=== PATIENT | male | born 1955 | race African-American/Black ===

== ENCOUNTER 2017-06-19 22:11 | Emergency (ER) | payer MEDICAID ==
[2017-07-17] MEDS ORDERED: DEPAKOTE500 MG PO (09:41)
[2017-07-17] MEDS ORDERED: HYDROCODONE-APA1 TAB PO (09:41)
[2017-07-17] MEDS ORDERED: ALENDRONATE SOD70 MG PO (09:42)
[2017-07-17] MEDS ORDERED: CALCIUM 600 +1 EAC3 PO (09:42)
[2017-07-20 10:42] VITALS: BMI 32.8
== END 2017-06-19 23:47 | disposition home or self-care (01) ==
LOC: D.ER 22:11
DX: S43.402A Unspecified sprain of left shoulder joint, initial encounter (principal); W19.XXXA Unspecified fall, initial encounter; Y93.89 Activity, other specified; Y92.89 Other specified places as the place of occurrence of the external cause

== ENCOUNTER → 2017-07-01 12:26 | Outpatient (CLI) | payer MEDICAID ==
[~2017-07-01 12:26] MED LIST: ALENDRONATE SOD70 MG PO; CALCIUM 600 +1 EAC3 PO; DEPAKOTE500 MG PO; HYDROCODONE-APA1 TAB PO
[2017-07-20 10:42] VITALS: BMI 32.8
== END | disposition home or self-care (01) ==
LOC: D.RAD 12:26
DX: M75.122 Complete rotator cuff tear or rupture of left shoulder, not specified as traumatic (principal); X58.XXXA Exposure to other specified factors, initial encounter; Y93.89 Activity, other specified; Y92.89 Other specified places as the place of occurrence of the external cause

== ENCOUNTER 2017-07-20 09:15 | Day surgery (SDC) | payer MEDICAID ==
[~2017-07-20] VITALS: Ht 190.5 cm; Wt 118.8 kg
--- NOTE | ~2017-07-20 | OP ---
PATIENT NAME: OMAR PETERSON MEDICAL RECORD: [id number] :57 LOCATION:[facility] ADMISSION DATE: SURGEON: ROSA FARIAS MD DATE OF OPERATION: 07/20/2017 PREOPERATIVE DIAGNOSIS: Rotator cuff tear of the left shoulder with impingement syndrome. POSTOPERATIVE DIAGNOSIS: Rotator cuff tear of the left shoulder with impingement syndrome. PROCEDURES: 1. Arthroscopic rotator cuff repair. 2. Arthroscopic subacromial decompression. 3. Arthroscopic distal clavicle excision done through separate incision -- 1 cm. SURGEON: Rosa Farias MD ANESTHESIA: General. INTRAOPERATIVE COMPLICATIONS: None. SUMMARY OF PATHOLOGIC FINDINGS: The patient had a full-thickness rotator cuff tear, mostly a PASTA type tear; however, it did communicate. Furthermore, the patient had a type 3 acromion with excoriation of the coracoacromial ligament as well as a downward sloping, osteophytes at the AC joint with AC joint arthropathy. Some mild labral tearing was noted. OPERATIVE SUMMARY IN DETAIL: After obtaining the appropriate preoperative orthopedic surgery clearance as well as anesthetic consultation, evaluation, the patient was brought to the operating room and placed on the operating table in the supine position. After adequate general laryngeal mask airway was administered, the patient was placed in a right lateral decubitus position. All pressure points were well padded. He was held firmly to the operating table using the vacuum pack suction system. Left upper extremity and shoulder were then prepped and draped in routine sterile fashion. The arm was held in the Arthrex traction boom at 30 degrees of forward flexion, 30 degrees of abduction, and 10 pounds of traction laterally. Arthroscopy was established in the glenohumeral joint from a posterior portal. Anterior portal was established in the anterior safe interval. Diagnostic arthroscopy revealed the above findings. An accessory tertiary portal was created for transrotator cuff tear approach to debride the undersurface tearing of the rotator cuff and decorticate the supraspinatus tendinous footprint on the articular aspect. The small anterior labral tearing was debrided. Attention was then turned to the subacromial space. While in the subacromial space, [place] tissue ablation system was utilized to denude the undersurface of the acromion of all soft tissue elements. A 5.0 barrel bur was used to perform acromioplasty at the level of the acromioclavicular joint. The distal clavicle was excised through a separate arthroscopic portal under direct arthroscopic visualization for 1 cm. Having completed this, attention was turned to the rotator cuff tear. Further decortication was carried out. An inverted #2 FiberTape was passed through the rotator cuff using the Scorpion. This was then anchored laterally with a single OPERATIVE REPORT [id number] OMAR PETERSON 5.5 SwiveLock from Arthrex. Arthroscopy portals were closed in routine interrupted fashion using 4-0 Prolene. Sterile dressings were applied. The patient was awakened and taken to the recovery room in stable condition. All final needle and sponge counts were correct. TRANSINT:[id number] Voice Confirmation ID: [id number] DOCUMENT ID: [id number] JARRETT MORAN, ROSA RODRIGUEZ at 1920 CC: [id number] DICTATION DATE: 07/20/17 1459 [place] [employer] SALESPERSON: 07/20/17 1730 [facility] 07/20/17 [facility] [address] [place] [address]
[2017-07-20 10:42] VITALS: Ht 190.5 cm; Wt 118.8 kg
[2017-07-20] MEDS ORDERED: HYDROCODONE-APA1 TAB PO (14:51)
== END 2017-07-20 16:50 | disposition home or self-care (01) ==
LOC: D.OPS 09:15 → D.PAN 13:30 → D.OPS 13:30
DX: M75.122 Complete rotator cuff tear or rupture of left shoulder, not specified as traumatic (principal); M75.42 Impingement syndrome of left shoulder; K21.9 Gastro-esophageal reflux disease without esophagitis; Z01.812 Encounter for preprocedural laboratory examination

== ENCOUNTER 2017-09-16 22:53 | Emergency (ER) | payer MEDICAID ==
[2017-07-20 10:42] VITALS: BMI 32.8
== END 2017-09-17 00:38 | disposition home or self-care (01) ==
LOC: D.ER 22:53
DX: S40.012A Contusion of left shoulder, initial encounter (principal); W18.2XXA Fall in (into) shower or empty bathtub, initial encounter; Y93.E1 Activity, personal bathing and showering; Y92.012 Bathroom of single-family (private) house as the place of occurrence of the external cause; S46.002A Unspecified injury of muscle(s) and tendon(s) of the rotator cuff of left shoulder, initial encounter; F17.200 Nicotine dependence, unspecified, uncomplicated

== ENCOUNTER 2017-11-03 16:26 | Emergency (ER) | payer MEDICAID ==
[2017-07-20 10:42] VITALS: BMI 32.8
[2017-11-03 17:35] LABS: BASOPHILS 0.4 % (0-2); EOSINOPHILS 5.4 % (0-7); HEMATOCRIT 38.1 % (42.0-54.0); HEMOGLOBIN 12.9 g/dL (13.5-17.5); LYMPHOCYTES 43.5 % (15-50); MCH 32.1 pg (26.0-34.0); MCHC 33.9 g/dL (31.0-37.0); MCV 94.8 fL (80.0-100.0); MEAN PLATELET VOLUME 8.7 fL (7.4-10.4); MONOCYTES 7.7 % (2-11); PLATELET COUNT 231 10x3/uL (130-400); RBC 4.02 10x6/uL (4.20-6.10); RDW 15.2 % (11.5-14.5); WBC 5.2 10x3/uL (4.8-10.8)
[2017-11-03 17:38] LABS: INR 1.01 (0.85-1.17); PROTIME 12.9 SECONDS (11.6-15.0)
[2017-11-03 17:40] LABS: D-DIMER-QUANTITATIVE 0.35 ug/mLFEU (0.20-0.54)
[2017-11-03 17:47] LABS: ALBUMIN 3.6 g/dL (3.4-5.0); ALKALINE PHOSPHATASE 76 U/L (46-116); ALT (SGPT) 30 U/L (10-68); CALC OSMOLALITY 283 mosm/kg (275-300); CALCIUM 9.3 mg/dL (8.5-10.1); CARBON DIOXIDE 23.7 mmol/L (21.0-32.0); CHLORIDE - SERUM 106 mmol/L (98-107); CREATININE - SERUM 1.3 mg/dL (0.6-1.3); GLUCOSE 129 mg/dL (74-106); POTASSIUM - SERUM 3.7 mmol/L (3.5-5.1); PROTEIN - SERUM 7.4 g/dL (6.4-8.2); SODIUM 141 mmol/L (136-145); UREA NITROGEN 15 mg/dL (7-18); eGFR NON AFRICAN AMERICAN 60 mL/min (90-120)
[2017-11-03 17:54] LABS: CREATINE KINASE 105 UL (21-232); MAGNESIUM - SERUM 2.1 mg/dL (1.8-2.4); PRO BNP 31 pg/mL (0-125); TROPONIN-I < 0.017 ng/mL (0.000-0.060); URIC ACID 7.8 mg/dL (2.6-7.2)
== END 2017-11-03 19:02 | disposition home or self-care (01) ==
LOC: D.ER 16:26
PROVIDERS: Nurse Practitioner Family
DX: M10.062 Idiopathic gout, left knee (principal); G40.909 Epilepsy, unspecified, not intractable, without status epilepticus

== ENCOUNTER → 2018-03-23 12:24 | Outpatient (CLI) | payer MEDICAID ==
[2017-07-20 10:42] VITALS: BMI 32.8
== END | disposition home or self-care (01) ==
LOC: D.LABREF 12:24
DX: M17.11 Unilateral primary osteoarthritis, right knee (principal); Z11.8 Encounter for screening for other infectious and parasitic diseases

== ENCOUNTER 2018-03-31 10:00 | Inpatient (IN) | payer MEDICAID ==
[~2018-03-31] VITALS: Ht 190.5 cm; Wt 118.2 kg
--- NOTE | ~2018-03-31 | OP ---
PATIENT NAME: OMAR PETERSON MEDICAL RECORD: [id number] :57 LOCATION:D.MS Greer2208 ADMISSION DATE:04/05/18 SURGEON: ROSA FARIAS MD DATE OF OPERATION: 04/05/2018 PREOPERATIVE DIAGNOSIS: Degenerative arthritis, left knee. POSTOPERATIVE DIAGNOSIS: Degenerative arthritis, left knee. PROCEDURE: Left total knee arthroplasty. SURGEON: Rosa Farias MD HVAC SHEET METAL INSTALLER HELPER: Billie Llanos ANESTHESIA: General with preoperative regional block. INTRAOPERATIVE COMPLICATIONS: None. SUMMARY OF PATHOLOGIC FINDINGS: Extensive osteoarthritis. Well-maintained patellar cartilage. IMPLANTS USED: Sinclair press fit Triathlon total knee arthroplasty size #8 distal femur, size #9 polyethylene insert, size #8 tibial baseplate. Patella was not replaced. OPERATIVE SUMMARY IN DETAIL: After obtaining the appropriate preoperative orthopedic surgery consent as well as anesthetic consultation, evaluation, and clearance, the patient was brought to the operating room and placed on the operating table in the supine position. After general laryngeal mask airway was administered, a tourniquet was placed about the proximal aspect of the left lower extremity. The left lower extremity was then prepped and draped in routine sterile fashion. The leg was elevated, exsanguinated, and the tourniquet was inflated to 350 mmHg. Routine midline incision was taken down for paramedian arthrotomy. Patella was everted and distal femur was exposed. Pathologic findings as noted above were seen. Soft tissue excision was done in usual fashion along with removal of medial and lateral osteophytes. Intramedullary guide hole was created for intramedullary guided distal femoral cuts. Distal femoral cuts were made. Having completed this, the entire proximal tibia was exposed. Distal intramedullary guide hole was created here as well. Proximal tibia was cut. Measurements were taken. Appropriate chamfer cuts were made in the distal femur. This was then followed by copious pulsatile lavage irrigation as well as removal of osteophytes about the patella. Trials were put into place and taken through range of motion with trials corresponding to the above-mentioned implants. At this point, tibial baseplate was then put into place. Press fit polyethylene was then followed by placement of the femur. The knee was then taken through another range of motion and found to be stable in all planes. Paramedian arthrotomy was closed with #2 Ethibond followed by #1 Vicryl, 2-0 Vicryl, and skin светлана. Sterile dressings were applied. Tourniquet was deflated. The patient was awakened and taken to the recovery room in stable condition. All final needle and sponge counts were correct. TRANSINT:[id number] Voice Confirmation ID: [id number] DOCUMENT ID: [id number] OPERATIVE REPORT [id number] OMAR PETERSON MD, ROSA RODRIGUEZ at 0812 CC: [id number] DICTATION DATE: 04/05/1839 BRICKLAYER TENDER: 04/05/18 1431 ADM IN [facility] [address] [place] [id number]
[2018-03-31 11:16] LABS: BASOPHILS 0.2 % (0-2); EOSINOPHILS 1.8 % (0-7); HEMOGLOBIN 13.5 g/dL (13.5-17.5); IMMATURE GRANULOCYTES 0.2 % (0-5); LYMPHOCYTES 39.4 % (15-50); MCH 33.5 pg (26.0-34.0); MCHC 34.6 g/dL (31.0-37.0); MCV 96.8 fL (80.0-100.0); MEAN PLATELET VOLUME 8.6 fL (7.4-10.4); MONOCYTES 11.7 % (2-11); NEUTROPHILS 46.7 % (40-80); PLATELET COUNT 221 10x3/uL (130-400); RBC 4.03 10x6/uL (4.20-6.10); RDW 15.5 % (11.5-14.5); WBC 5.6 10x3/uL (4.8-10.8)
[2018-03-31 11:23] LABS: APPEARANCE HAZY (CLEAR); BILIRUBIN NEGATIVE (NEGATIVE); COLOR DK YELLOW (YELLOW); GLUCOSE NEGATIVE (NEGATIVE); KETONE NEGATIVE (NEGATIVE); NITRITE NEGATIVE (NEGATIVE); PROTEIN NEGATIVE (NEGATIVE); SPECIFIC GRAVITY 1.025 (1.005-1.020); UROBILINOGEN NORMAL (NORMAL)
[2018-03-31 11:25] LABS: ANION GAP 9.2 mmol/L (8-16); CALCIUM 9.6 mg/dL (8.5-10.1); CARBON DIOXIDE 29.4 mmol/L (21.0-32.0); CREATININE - SERUM 1.2 mg/dL (0.6-1.3); POTASSIUM - SERUM 3.6 mmol/L (3.5-5.1)
[2018-03-31 11:26] LABS: INR 1.03 (0.85-1.17); PROTIME 13.1 SECONDS (11.6-15.0)
[2018-03-31 11:39] LABS: BACTERIA MODERATE /hpf (NONE SEEN); MUCUS >1+ /lpf (NONE SEEN); RED CELLS - URINE 0-5 /hpf (0-5)
[2018-04-05 05:39] VITALS: BP 125/96; BMI 32.5
[2018-04-05 06:27] LABS: APPEARANCE CLEAR (CLEAR); BILIRUBIN NEGATIVE (NEGATIVE); COLOR YELLOW (YELLOW); GLUCOSE NEGATIVE (NEGATIVE); KETONE NEGATIVE (NEGATIVE); NITRITE NEGATIVE (NEGATIVE); PROTEIN NEGATIVE (NEGATIVE); UROBILINOGEN NORMAL (NORMAL)
[2018-04-05 14:09] VITALS: BP 170/84
[2018-04-05 17:27] VITALS: BP 170/84
[2018-04-05 19:22] VITALS: Ht 190.5 cm; Wt 118.2 kg
[2018-04-05 20:00] VITALS: BP 179/109
[2018-04-06 06:00] VITALS: BP 130/83
[2018-04-06 07:02] LABS: HEMATOCRIT 31.1 % (42.0-54.0); HEMOGLOBIN 10.5 g/dL (13.5-17.5); MCH 32.9 pg (26.0-34.0); MCHC 33.8 g/dL (31.0-37.0); MCV 97.5 fL (80.0-100.0); MEAN PLATELET VOLUME 9.3 fL (7.4-10.4); RBC 3.19 10x6/uL (4.20-6.10); RDW 15.3 % (11.5-14.5); WBC 9.1 10x3/uL (4.8-10.8)
[2018-04-06 08:00] VITALS: BP 160/110
[2018-04-06 11:56] VITALS: BP 117/72
[2018-04-06 14:49] VITALS: BP 113/60
[2018-04-06 21:59] VITALS: BP 119/83
[2018-04-07 05:13] VITALS: BP 136/88
[2018-04-07 05:54] LABS: HEMATOCRIT 28.9 % (42.0-54.0); HEMOGLOBIN 9.8 g/dL (13.5-17.5); MCH 32.7 pg (26.0-34.0); MCHC 33.9 g/dL (31.0-37.0); MCV 96.3 fL (80.0-100.0); MEAN PLATELET VOLUME 9.3 fL (7.4-10.4); RDW 15.1 % (11.5-14.5); WBC 8.7 10x3/uL (4.8-10.8)
[2018-04-07] MEDS ORDERED: NORCO 10-325 TA1 TAB PO (08:20)
[2018-04-07] MEDS ORDERED: ELIQUIS2.5 MG PO (08:20)
[2018-04-07 09:44] VITALS: BP 139/89
== END 2018-04-07 16:55 | disposition home or self-care (01) | DRG 470 ==
LOC: D.SDCHOLD 04-05 05:00 → D.MS 04-05 05:00 → D.SDCHOLD 04-05 07:30 → D.MS 04-05 10:22
PROVIDERS: Orthopaedic Surgery
PROC: 0SRD0JA Replacement of Left Knee Joint with Synthetic Substitute, Uncemented, Open Approach (ICD-10-PCS; principal; 2018-04-05 08:15)
DX: M17.12 Unilateral primary osteoarthritis, left knee (principal); M25.762 Osteophyte, left knee; F17.200 Nicotine dependence, unspecified, uncomplicated

== ENCOUNTER 2018-04-15 14:31 | Emergency (ER) | payer MEDICAID ==
[~2018-04-15] VITALS: Ht 190.5 cm; Wt 123.6 kg
[~2018-04-15 14:31] MED LIST changes: +ELIQUIS2.5 MG PO; +NORCO 10-325 TA1 TAB PO
[2018-04-15 14:44] VITALS: Ht 190.5 cm; Wt 123.6 kg
[2018-04-15 15:38] LABS: BASOPHILS 0.3 % (0-2); HEMATOCRIT 27.5 % (42.0-54.0); HEMOGLOBIN 9.6 g/dL (13.5-17.5); IMMATURE GRANULOCYTES 0.4 % (0-5); LYMPHOCYTES 18.4 % (15-50); MCHC 34.9 g/dL (31.0-37.0); MCV 94.5 fL (80.0-100.0); MEAN PLATELET VOLUME 8.5 fL (7.4-10.4); MONOCYTES 9.3 % (2-11); NEUTROPHILS 69.6 % (40-80); RBC 2.91 10x6/uL (4.20-6.10); RDW 14.5 % (11.5-14.5); WBC 7.9 10x3/uL (4.8-10.8)
[2018-04-15 15:40] LABS: PLATELET COUNT 580 10x3/uL (130-400)
[2018-04-15 15:56] LABS: ALBUMIN 3.4 g/dL (3.4-5.0); ANION GAP 15.5 mmol/L (8-16); BILIRUBIN - TOTAL 1.45 mg/dL (0.2-1.3); CALCIUM 10.3 mg/dL (8.5-10.1); CARBON DIOXIDE 24.8 mmol/L (21.0-32.0); CREATININE - SERUM 1.5 mg/dL (0.6-1.3); POTASSIUM - SERUM 4.3 mmol/L (3.5-5.1); PROTEIN - SERUM 8.7 g/dL (6.4-8.2)
[2018-04-15 18:29] VITALS: BP 105/55
== END 2018-04-15 18:22 | disposition home or self-care (01) ==
LOC: D.ER 14:31
PROVIDERS: Family Medicine
DX: S80.02XA Contusion of left knee, initial encounter (principal); W18.30XA Fall on same level, unspecified, initial encounter; Y93.89 Activity, other specified; Y92.019 Unspecified place in single-family (private) house as the place of occurrence of the external cause; Z96.652 Presence of left artificial knee joint; G40.909 Epilepsy, unspecified, not intractable, without status epilepticus; F17.200 Nicotine dependence, unspecified, uncomplicated

== ENCOUNTER 2018-04-22 13:21 | Inpatient (IN) | payer MEDICAID ==
[~2018-04-22] VITALS: Ht 190.5 cm; Wt 117.9 kg
--- NOTE | ~2018-04-22 | MORECARE ---
CASE MANAGEMENT DISCHARGE SUMMARY PATIENT: OMAR PETERSON UNIT: [id number] ADM DATE: 04/22/18 AGE: 62 : 57 SEX: M ROOM/BED: D.2223 AUTHOR: CAROLINE,DOC PHYSICIAN: REFERRING PHYSICIAN: ROSA FARIAS MD DATE OF SERVICE: 04/29/18 Discharge Plan Patient Name: OMAR PETERSON Facility: [facility]:[place] : 1955 Planned Disposition: Home Anticipated Discharge Date: Discharge Date: Expected LOS: Initial Reviewer: [email or web address] Initial Review Date: 04/26/2018 Generated: 04/29/18 10:41 am Comments DCP- Discharge Planning Updated by [email or web address]: Kate Helmsarti on 04/26/18 4:[address] Spoke with the patient regarding discharge planning after speaking with physical therapy. Patient states he may be able to go to [place] with his brother if needed. He is not willing to go to tacking stitch remover care at this time. He does not have rehab or skilled benefits. CM will continue to follow and assist with discharge planning/needs. DCP- Discharge Planning Updated by [email or web address]: Kate Pringle on 04/26/18 10:[address] Patient Name: OMAR PETERSON Admission Status: ER Accout number: [id number] Admission Date: 04-22-2018 : 1955 Admission Diagnosis:INFECT/INFLM REACTION DUE TO INTERNAL LEFT KNEE PROSTH, Attending: ROSA FARIAS Current LOS: 4 Anticipated DC Date: Planned Disposition: Home Primary Insurance: MEDICAID [place] Discharge Planning Comments: CM met with patient to discuss discharge planning, he is alone in the room. He states his friend, Anjel Monique, will take him home on discharge. States he lives alone and is independent with his care. States he uses a cane or walker to ambulate. States he does have 3 steps to get into his home. States he has all the DME he needs. States he plans on returning home. States he will need 2 days notice to turn his electricity on. States his friend, Anjel, does his grocery shopping and will help with transportation. I asked if he used the [employer] transportation and he states he does but he needs to give 48 hours notice. States he has the [employer] number. I informed him of home health services and aide care available and he would like to wait until Dr. Max to see him before making a decision. CM will continue to follow and assist with discharge planning/needs. Cigar Packer And Shader: Kate Pringle DCPIA - Discharge Planning Initial Assessment Updated by [email or web address]: Kate Pringle on 04/26/18 11:14 am * Is the patient Alert and Oriented? Yes * How many steps to enter\exit or inside your home? 3/0 * PCP Dr. Leon * Pharmacy [facility] * Preadmission Environment Home Alone * ADLs Partial Dependent * Partial ADLs (Assistance needed) Ambulation * Equipment Bedside Commode Cane Other Rolling Walker * List name and contact numbers for known caregivers / representatives who currently or will assist patient after discharge: Anjel Monique - friend - [phone] * Verbal permission to speak to the caregivers and representatives has been obtained from the patient. Yes * Community resources currently utilized Other * Please name any agencies selected above. [facility] in [place] for DME * Additional services required to return to the preadmission environment? Yes * Can the patient safely return to the preadmission environment? No * Has this patient been hospitalized within the prior 30 days at any hospital? Yes External Providers External Provider: [facility] Next Contact Date: Service Request Date: Service Type: Resolution: Reviewer: Comments: Last DP export: 04/26/18 4:29 Patient Name: OMAR PETERSON Page 47790 at 0941 All edits/amendments must be made on the electronic document DICTATION DATE: 04/29/18939 SUB MASTER: RAYMOND 04/29/18939 RPT#: [id number] DC DATE: STATUS: ADM IN [facility] [address] [place] [address] END OF REPORT
--- NOTE | ~2018-04-22 | MORECARE ---
CASE MANAGEMENT DISCHARGE SUMMARY PATIENT: OMAR PETERSON UNIT: [id number] ADM DATE: 04/22/18 AGE: 62 : 57 SEX: M ROOM/BED: D.2223 AUTHOR: RAMYA VELAZQUEZ PHYSICIAN: REFERRING PHYSICIAN: ROSA FARIAS MD DATE OF SERVICE: 04/29/18 Discharge Plan Patient Name: OMAR PETERSON Facility: [facility]:[place] : 1955 Planned Disposition: Home Anticipated Discharge Date: Discharge Date: Expected LOS: Initial Reviewer: [email or web address] Initial Review Date: 04/26/2018 Generated: 04/29/18 10:49 am Comments DCP- Discharge Planning Updated by [email or web address]: Kate Pringle on 04/29/18 8:[address] Received order for discharge. He states his friend will pick him up today after 5. MARTINA for [facility] signed. I called and spoke to Venecia. He denies need for DME. Home today with home health. CM will continue to follow and assist with discharge planning/needs. DCP- Discharge Planning Updated by [email or web address]: Kate Pringle on 04/26/18 4:[address] Spoke with the patient regarding discharge planning after speaking with physical therapy. Patient states he may be able to go to [place] with his brother if needed. He is not willing to go to alf care at this time. He does not have rehab or skilled benefits. CM will continue to follow and assist with discharge planning/needs. DCP- Discharge Planning Updated by [email or web address]: Kate Pringle on 04/26/18 10:[address] Patient Name: OMAR PETERSON Admission Status: ER Accout number: [id number] Admission Date: 04-22-2018 : 1955 Admission Diagnosis:INFECT/INFLM REACTION DUE TO INTERNAL LEFT KNEE PROSTH, Attending: ROSA FARIAS Current LOS: 4 Anticipated DC Date: Planned Disposition: Home Primary Insurance: MEDICAID [place] Discharge Planning Comments: CM met with patient to discuss discharge planning, he is alone in the room. He states his friend, Anjel Monique, will take him home on discharge. States he lives alone and is independent with his care. States he uses a cane or walker to ambulate. States he does have 3 steps to get into his home. States he has all the DME he needs. States he plans on returning home. States he will need 2 days notice to turn his electricity on. States his friend, Anjel, does his grocery shopping and will help with transportation. I asked if he used the [employer] transportation and he states he does but he needs to give 48 hours notice. States he has the [employer] number. I informed him of home health services and aide care available and he would like to wait until Dr. Max to see him before making a decision. CM will continue to follow and assist with discharge planning/needs. Phone Representative: Kate Pringle DCPIA - Discharge Planning Initial Assessment Updated by [email or web address]: Kate Pringle on 04/26/18 11:14 am * Is the patient Alert and Oriented? Yes * How many steps to enter\exit or inside your home? 3/0 * PCP Dr. Leon * Pharmacy [facility] * Preadmission Environment Home Alone * ADLs Partial Dependent * Partial ADLs (Assistance needed) Ambulation * Equipment Bedside Commode Cane Other Rolling Walker * List name and contact numbers for known caregivers / representatives who currently or will assist patient after discharge: Anjel Lock - friend - [phone] * Verbal permission to speak to the caregivers and representatives has been obtained from the patient. Yes * Community resources currently utilized Other * Please name any agencies selected above. [facility] at [facility] in [place] for DME * Additional services required to return to the preadmission environment? Yes * Can the patient safely return to the preadmission environment? No * Has this patient been hospitalized within the prior 30 days at any hospital? Yes Last DP export: 04/29/18 8:41 Patient Name: OMAR PETERSON Page 50012 at 0949 All edits/amendments must be made on the electronic document DICTATION DATE: 04/29/18948 FLANGER: RAYMOND 04/29/18948 RPT#: [id number] DC DATE: STATUS: ADM IN [facility] [address] [place] [address] END OF REPORT
--- NOTE | ~2018-04-22 | MORECARE ---
CASE MANAGEMENT DISCHARGE SUMMARY PATIENT: OMAR PETERSON UNIT: [id number] ADM DATE: 04/22/18 AGE: 62 : 57 SEX: M ROOM/BED: D.2223 AUTHOR: RAMYA VELAZQUEZ PHYSICIAN: REFERRING PHYSICIAN: ROSA FARIAS MD DATE OF SERVICE: 04/26/18 Discharge Plan Patient Name: OMAR PETERSON [facility] [facility] 1955 Planned Disposition: Home Anticipated Discharge Date: Discharge Date: Expected LOS: Initial Reviewer: [email or web address] Initial Review Date: 04/26/2018 Generated: 04/26/18 12:18 pm DCPIA - Discharge Planning Initial Assessment Updated by [email or web address]: Kate Pringle on 04/26/18 11:14 am * Is the patient Alert and Oriented? Yes * How many steps to enter\exit or inside your home? 3/0 * PCP Dr. Leon * Pharmacy [facility] * Preadmission Environment Home Alone * ADLs Partial Dependent * Partial ADLs (Assistance needed) Ambulation * Equipment Bedside Commode Cane Other Rolling Walker * List name and contact numbers for known caregivers / representatives who currently or will assist patient after discharge: Anjel Monique - louisa - [phone] * Verbal permission to speak to the caregivers and representatives has been obtained from the patient. Yes * Community resources currently utilized Other * Please name any agencies selected above. [facility] at [facility] in [place] for DME * Additional services required to return to the preadmission environment? Yes * Can the patient safely return to the preadmission environment? No * Has this patient been hospitalized within the prior 30 days at any hospital? Yes Patient Name: OMAR PETERSON Page 59536 at 1118 All edits/amendments must be made on the electronic document DICTATION DATE: 04/26/181116 RADIOISOTOPE TECHNOLOGIST: RAYMOND 04/26/181116 RPT#: [id number] DC DATE: STATUS: ADM IN [facility] [address] [place] [address] END OF REPORT
--- NOTE | ~2018-04-22 | EC ---
PATIENT:OMAR PETERSON DATE OF SERVICE: 04/22/18 SEX: M MEDICAL RECORD: [id number] DATE OF : 57 LOCATION:D.MS Greer222 AGE OF PATIENT: 62 ADMISSION DATE: 04/22/18 REFERRING PHYSICIAN: INTERPRETING PHYSICIAN: EUSEBIA SHORE MD ECHOCARDIOGRAM REPORT ECHO CHARGES 4 ECHO COMPLETE Date: 04/26/18 CLINICAL DIAGNOSIS: SVT ECHOCARDIOGRAPHIC MEASUREMENTS (adult normal given) AC root (d.<3.7cm) 3.5 cm LV Septum d (<1.2 cm> 1.0 cm Valve Excursion 2.3 cm LV Septum (systole) 1.7 cm Left Atria (s.<4.0cm> 4.0 cm LVPW d(<1.2cm) 1.2 cm RV (d.<2.3cm) 2.8 cm LVPW (sytole) 1.9 cm LV diastole(<5.6CM) 4.4 cm MV E-F(>70mm/sec) cm LV systole 2.1 cm LVOT Diameter 2.2 cm MV exc.(>10mm) cm Est.ejection fraction (50-75%) % DOPPLER: LVIT cm/sec A 90.0 cm/sec E 77.0 cm/sec LA cm/sec RVSP 29.0 mmHg LVOT 137 cm/sec AOP1/2T m/s Asc. Ao 164 cm/sec RVOT 64.0 cm/sec RA cm/sec PA 100 cm/sec AV Gradient Peak 11.0 mmHg AV Mean 5.6 mmHg AV Area 2.4 cm MV Gradient Peak 4.7 mmHg MV Mean 2.6 mmHg MV Area cm COMMENTS: Disability Representative: Kenneth ZAPATAOE Race Relations Professor: 1 Dr. Shore TAPE# PACS Pericardial Effusion N DATE OF SERVICE: 04/26/2018 PROCEDURE: Echocardiogram. FINDINGS: 1. Left ventricular chamber size is within normal limits. Left ventricular systolic function is normal. Overall ejection fraction estimated at 55%. 2. Left atrium is upper limits of normal at 4.0 cm. Right atrium and right ventricle chamber sizes are hqlv-uj-igeohlbldi dilated. 3. Valvular structures have normal structure and motion. ECHOCARDIOGRAM REPORT [id number] OMAR PETERSON 4. Doppler interrogation reveals mild mitral regurgitation, trace tricuspid regurgitation, no other valvular insufficiency or stenosis. Pulmonary systolic pressure is normal estimated at 29 mmHg. 5. No evidence of pericardial effusion or left ventricular thrombus. TRANSINT:[id number] Voice Confirmation ID: [id number] DOCUMENT ID: [id number] EUSEBIA SHORE MD at 1914 CC: [id number] DICTATION DATE: 04/26/18 1218 PAPER BAG INSPECTOR: 04/26/18 1302 DIS IN 04/29/18 [facility] [address] [place] [id number]
--- NOTE | ~2018-04-22 | MORECARE ---
CASE MANAGEMENT DISCHARGE SUMMARY PATIENT: OMAR PETERSON UNIT: [id number] ADM DATE: 04/22/18 AGE: 62 : 57 SEX: M ROOM/BED: D.2223 AUTHOR: CAROLINE,DOC PHYSICIAN: REFERRING PHYSICIAN: ROSA FARIAS MD DATE OF SERVICE: 04/26/18 Discharge Plan Patient Name: OMAR PETERSON Facility: [facility]:[place] : 1955 Planned Disposition: Home Anticipated Discharge Date: Discharge Date: Expected LOS: Initial Reviewer: [email or web address] Initial Review Date: 04/26/2018 Generated: 04/26/18 6:29 pm Comments DCP- Discharge Planning Updated by [email or web address]: Kate Pringle on 04/26/18 4:[address] Spoke with the patient regarding discharge planning after speaking with physical therapy. Patient states he may be able to go to [place] with his brother if needed. He is not willing to go to [facility] intermediary care at this time. He does not have rehab or skilled benefits. CM will continue to follow and assist with discharge planning/needs. DCP- Discharge Planning Updated by [email or web address]: Kate Pringle on 04/26/18 10:[address] Patient Name: OMAR PETERSON Admission Status: ER Accout number: [id number] Admission Date: 04-22-2018 : 1955 Admission Diagnosis:INFECT/INFLM REACTION DUE TO INTERNAL LEFT KNEE PROSTH, Attending: ROSA FARIAS Current LOS: 4 Anticipated DC Date: Planned Disposition: Home Primary Insurance: MEDICAID [place] Discharge Planning Comments: CM met with patient to discuss discharge planning, he is alone in the room. He states his friend, Anjel Monique, will take him home on discharge. States he lives alone and is independent with his care. States he uses a cane or walker to ambulate. States he does have 3 steps to get into his home. States he has all the DME he needs. States he plans on returning home. States he will need 2 days notice to turn his electricity on. States his friend, Anjel, does his grocery shopping and will help with transportation. I asked if he used the [employer] transportation and he states he does but he needs to give 48 hours notice. States he has the [employer] number. I informed him of home health services and aide care available and he would like to wait until Dr. Max to see him before making a decision. CM will continue to follow and assist with discharge planning/needs. Face Worker: Kate Pringle DCPIA - Discharge Planning Initial Assessment Updated by [email or web address]: Kate Pringle on 04/26/18 11:14 am * Is the patient Alert and Oriented? Yes * How many steps to enter\exit or inside your home? 3/0 * PCP Dr. Leon * Pharmacy [facility] * Preadmission Environment Home Alone * ADLs Partial Dependent * Partial ADLs (Assistance needed) Ambulation * Equipment Bedside Commode Cane Other Rolling Walker * List name and contact numbers for known caregivers / representatives who currently or will assist patient after discharge: Anjel Monique - friend - [phone] * Verbal permission to speak to the caregivers and representatives has been obtained from the patient. Yes * Community resources currently utilized Other * Please name any agencies selected above. [facility] [place] for DME * Additional services required to return to the preadmission environment? Yes * Can the patient safely return to the preadmission environment? No * Has this patient been hospitalized within the prior 30 days at any hospital? Yes Last DP export: 04/26/18 10:25 Patient Name: OMAR PETERSON Page 21660 at 1729 All edits/amendments must be made on the electronic document DICTATION DATE: 04/26/181728 STAPLING MACHINE OPERATOR: RAYMOND 04/26/181728 RPT#: [id number] DC DATE: STATUS: ADM IN [facility] [address] [place] [address] END OF REPORT
--- NOTE | ~2018-04-22 | OP ---
PATIENT NAME: OMAR PETERSON MEDICAL RECORD: [id number] :57 LOCATION:D.MS [facility]2223 ADMISSION DATE:04/22/18 SURGEON: ROSA FARIAS MD DATE OF OPERATION: 04/24/2018 PREOPERATIVE DIAGNOSIS: Possible infection, left total knee arthroplasty. POSTOPERATIVE DIAGNOSIS: Possible infection, left total knee arthroplasty. PROCEDURES: 1. Excisional debridement of left total knee. 2. Polyethylene exchange. 3. Popliteus resection. SURGEON: Rosa Farias MD ANESTHESIA: General. INTRAOPERATIVE COMPLICATIONS: None. SUMMARY OF PATHOLOGIC FINDINGS: The patient had turbid bloody fluid in the knee at the time of the aspirate. Upon entering the knee, he clearly had what appeared to be infectious hematoma in the prepatellar space; however, there was the same type of hematoma in the knee itself. IMPLANTS USED: Size 8 CS 11 polyethylene replaced for a size 9 polyethylene. OPERATIVE SUMMARY IN DETAIL: After obtaining the appropriate preoperative orthopedic surgery consents as well as anesthetic consultation, evaluation, and clearance, the patient was brought to the operating room and placed on the operating table in supine position. After general laryngeal mask airway was administered, tourniquet was placed on the proximal aspect of the left lower extremity. Left lower extremity was then prepped and draped in a routine sterile fashion. The leg was elevated, tourniquet was inflated to 250 mmHg. An 18-gauge needle was used to first aspirate the knee. Aspirate retrieve was approximately 70 cc. This was sent to the lab for synovial fluid analysis and cultures. Having completed this, the patient's incision in its entirety was opened. Prepatellar hematoma was removed. The area was then scraped with both curettage. A Blanco and all of this nonviable appearing material was removed. Irrigation was then followed by a paramedian arthrotomy. The previously placed sutures were all removed. The paramedian arthrotomy was then opened up and copious amounts of nonviable appearing clotted tissue was removed. This was all taken down. At this point, then the knee was flexed. The polyethylene was removed simply. Having completed this, copious pulsatile lavage irrigation was then followed by a scrub brush and Betadine scrub of the entire joint metal surfaces as well as the soft tissue surfaces. Because the patient had pain in deep flexion, the popliteus was resected. This was prior to the current problem. The popliteus was resected. After further debridement was carried, a size 9 [address] in place and taken through range of motion and found to be stable, only with a slight medial release. Wound was again irrigated. At this point, it was allowed to sit in Betadine for approximately 5 minutes. Betadine was gently removed and left on the soft tissues. The permanent size 11 CS [address] The knee was taken through range of motion. Further irrigation was then carried out by drying the entire cavity. A gram of vancomycin powder was introduced into the cavity and into the prepatellar space. OPERATIVE REPORT [id number] OMAR PETERSON The paramedian arthrotomy was then closed with #2 Ethibond. This was followed by #1 Vicryl, 2-0 Vicryl, and skin светлана. Sterile dressings were applied. The patient was awakened and taken to recovery room in stable condition. All final needle and sponge counts were correct. TRANSINT:[id number] Voice Confirmation ID: [id number] DOCUMENT ID: [id number] JARRETT MORAN, ROSA RODRIGUEZ at 0759 CC: [id number] DICTATION DATE: 04/24/18 1024 AUTOMATIC PAD MAKING MACHINE OPERATOR: 04/24/18 1224 [facility] IN [place] [id number] [place] [id number]
--- NOTE | ~2018-04-22 | CN ---
PATIENT NAME:OMAR GUTIERREZ MEDICAL RECORD: [id number] : 57 LOCATION:D.MS [facility]2223 ADMIT DATE: 04/22/18 ACCOUNT: [id number] CONSULTING PHYSICIAN: EUSEBIA ÁLVAREZ MD REFERRING PHYSICIAN: ROSA FARIAS MD DATE OF CONSULTATION: 04/25/2018 DIAGNOSES: 1. Supraventricular tachycardia. 2. Tachycardia. HISTORY: Mr. Gutierrez presents after a knee surgery. He fell at home, opened it up, got infected, and needed an I&D. He has been having tachycardia since. It is clearly related to his pain. When he gets his pain medication, his tachycardia resolves. At one point, there was possibly a supraventricular tachycardia, treated with Cardizem. This did improve the rate, but he continues to be tachycardic, markedly improved with pain control. He has not had any cardiac history. PHYSICAL EXAMINATION: GENERAL APPEARANCE: Well-nourished, well-developed, appears stated age. Level of distress, comfortable. PSYCHIATRIC: Mental status, alert, normal affect. Orientation, oriented to time, place and person. EYES: Lids and conjunctiva, noninjected. No discharge, no pallor. ENT: Lips, teeth, gums, normal dentition. Oropharynx, no cyanosis, no pallor. NECK: Carotid arteries, bilateral normal upstroke, no bruits, no thrills. JUGULAR VEINS: No jugular venous pressure or distention. CERVICAL LYMPH NODES: Nontender, nonenlarged. THYROID: Not enlarged. Nontender. No nodules. LUNGS: Respiratory effort, unlabored. CHEST: Normal curvature. No thoracic deformity. No chest wall tenderness. Percussion, resonant. Auscultation, clear. No wheezes, no rales, no rhonchi. CARDIOVASCULAR: Precordial exam, nondisplaced. No heaves or pericardial thrills. Rate and rhythm, regular. Heart sounds, normal S1, normal S2. No S3, no gallop, no rub. Systolic murmur, not heard. Diastolic murmur, not heard. EXTREMITIES: No cyanosis, no edema. Peripheral pulses, full and equal in all extremities, except as noted. No bruits appreciated. ABDOMEN: Soft, nondistended. Normal aorta. No bruit. Nontender. No masses. Liver, nontender, no hepatomegaly. Spleen, nontender, no splenomegaly. MUSCULOSKELETAL: No joint tenderness. No joint swelling. No erythema. NEUROLOGICAL: Normal gait, normal strength, normal tone. SKIN: Warm and dry. OVERALL IMPRESSION: Tachycardia related to pain. This will respond to a beta-juan pablo better than the Cardizem drip. We will discontinue the Cardizem drip and start him on low-dose beta juan pablo. He can go back to the ortho floor and resume his care there with beta-juan pablo and pain control. We will get an echocardiogram. Other than that, no other cardiac workup or treatment is necessary. TRANSINT:[id number] Voice Confirmation ID: [id number] DOCUMENT ID: [id number] CONSULT REPORT [id number] OMAR GUTIERREZ, EUSEBIA MORAN at 1914 CC: [id number] DICTATION DATE: 04/25/18 1134 SENIOR RISK MANAGER: 04/25/18 1321 DIS IN 04/29/18 [place] [address] [place] [address]
--- NOTE | ~2018-04-22 | MORECARE ---
CASE MANAGEMENT DISCHARGE SUMMARY PATIENT: OMAR PETERSON UNIT: [id number] ADM DATE: 04/22/18 AGE: 62 : 57 SEX: M ROOM/BED: D.2223 AUTHOR: RAMYA VELAZQUEZ PHYSICIAN: REFERRING PHYSICIAN: ROSA FARIAS MD DATE OF SERVICE: 04/30/18 Discharge Plan Patient Name: OMAR PETERSON Facility: [facility]:[place] : 1955 Planned Disposition: Home Anticipated Discharge Date: Discharge Date: 04/29/2018 Expected LOS: 0 Initial Reviewer: [email or web address] Initial Review Date: 04/26/2018 Generated: 04/30/18 10:20 am Comments DCP- Discharge Planning Updated by [email or web address]: Kate Pino on 04/29/18 8:[address] Received order for discharge. He states his friend will pick him up today after 5. MARTINA for [facility] signed. I called and spoke to Venecia. He denies need for DME. Home today with home health. CM will continue to follow and assist with discharge planning/needs. DCP- Discharge Planning Updated by [email or web address]: Kate Pino on 04/26/18 4:[address] Spoke with the patient regarding discharge planning after speaking with physical therapy. Patient states he may be able to go to [place] with his brother if needed. He is not willing to go to long-term care at this time. He does not have rehab or skilled benefits. CM will continue to follow and assist with discharge planning/needs. DCP- Discharge Planning Updated by [email or web address]: Kate Pringle on 04/26/18 10:[address] Patient Name: OMAR PETERSON Admission Status: ER Accout number: [id number] Admission Date: 04-22-2018 : 1955 Admission Diagnosis:INFECT/INFLM REACTION DUE TO INTERNAL LEFT KNEE PROSTH, Attending: ROSA FARIAS Current LOS: 4 Anticipated DC Date: Planned Disposition: Home Primary Insurance: MEDICAID [place] Discharge Planning Comments: CM met with patient to discuss discharge planning, he is alone in the room. He states his friend, Anjel Monique, will take him home on discharge. States he lives alone and is independent with his care. States he uses a cane or walker to ambulate. States he does have 3 steps to get into his home. States he has all the DME he needs. States he plans on returning home. States he will need 2 days notice to turn his electricity on. States his friend, Anjel, does his grocery shopping and will help with transportation. I asked if he used the [employer] transportation and he states he does but he needs to give 48 hours notice. States he has the [employer] number. I informed him of home health services and aide care available and he would like to wait until Dr. Max to see him before making a decision. CM will continue to follow and assist with discharge planning/needs. Claim Benefit Specialist: Kate Pringle DCPIA - Discharge Planning Initial Assessment Updated by [email or web address]: Kate Pringle on 04/26/18 11:14 am * Is the patient Alert and Oriented? Yes * How many steps to enter\exit or inside your home? 3/0 * PCP Dr. Leon * [facility]acy [facility] * Preadmission Environment Home Alone * ADLs Partial Dependent * Partial ADLs (Assistance needed) Ambulation * Equipment Bedside Commode Cane Other Rolling Walker * List name and contact numbers for known caregivers / representatives who currently or will assist patient after discharge: Anjel Lock - friend - [phone] * Verbal permission to speak to the caregivers and representatives has been obtained from the patient. Yes * Community resources currently utilized Other * Please name any agencies selected above. [facility] PT at [facility] in [place] for DME * Additional services required to return to the preadmission environment? Yes * Can the patient safely return to the preadmission environment? No * Has this patient been hospitalized within the prior 30 days at any hospital? Yes Last DP export: 04/29/18 8:49 Patient Name: OMAR PETERSON Page [id number] at 0921 All edits/amendments must be made on the electronic document DICTATION DATE: 04/30/18919 MODERN AND CONTEMPORARY ART CURATOR: RAYMOND 04/30/18919 RPT#: [id number] DC DATE:04/29/18 STATUS: DIS IN [facility] [address] [place] [address] END OF REPORT
--- NOTE | ~2018-04-22 | MORECARE ---
CASE MANAGEMENT DISCHARGE SUMMARY PATIENT: OMAR PETERSON UNIT: [id number] ADM DATE: 04/22/18 AGE: 62 : 57 SEX: M ROOM/BED: D.2223 AUTHOR: CAROLINE,DOC PHYSICIAN: REFERRING PHYSICIAN: ROSA FARIAS MD DATE OF SERVICE: 04/30/18 Discharge Plan Patient Name: OMAR PETERSON Facility: [facility]:[place] : 1955 Planned Disposition: Home Anticipated Discharge Date: Discharge Date: 04/29/2018 Expected LOS: 0 Initial Reviewer: [email or web address] Initial Review Date: 04/26/2018 Generated: 04/30/18 10:27 am Comments DCP- Discharge Planning Updated by [email or web address]: Kate Pringle on 04/30/18 8:[address] Late entry: Patient states he left his walker in [place]. I called [facility] and patient cost is 84 dollars. States he is not able to pay. Maddy Rosales donates walkers free of charge and she voluntarily brought him a walker for home. DCP- Discharge Planning Updated by [email or web address]: Kate Helmsarti on 04/29/18 8:[address] Received order for discharge. He states his friend will pick him up today after 5. MARTINA for [facility] signed. I called and spoke to Venecia. He denies need for DME. Home today with home health. CM will continue to follow and assist with discharge planning/needs. DCP- Discharge Planning Updated by [email or web address]: Kate Pringle on 04/26/18 4:[address] Spoke with the patient regarding discharge planning after speaking with physical therapy. Patient states he may be able to go to [place] with his brother if needed. He is not willing to go to long-term care at this time. He does not have rehab or skilled benefits. CM will continue to follow and assist with discharge planning/needs. DCP- Discharge Planning Updated by [email or web address]: Kate Pringle on 04/26/18 10:[address] Patient Name: OMAR PETERSON Admission Status: ER Accout number: [id number] Admission Date: 04-22-2018 : 1955 Admission Diagnosis:INFECT/INFLM REACTION DUE TO INTERNAL LEFT KNEE PROSTH, Attending: ROSA FARIAS Current LOS: 4 Anticipated DC Date: Planned Disposition: Home Primary Insurance: MEDICAID [place] Discharge Planning Comments: CM met with patient to discuss discharge planning, he is alone in the room. He states his friend, Anjel Monique, will take him home on discharge. States he lives alone and is independent with his care. States he uses a cane or walker to ambulate. States he does have 3 steps to get into his home. States he has all the DME he needs. States he plans on returning home. States he will need 2 days notice to turn his electricity on. States his friend, Anjel, does his grocery shopping and will help with transportation. I asked if he used the [employer] transportation and he states he does but he needs to give 48 hours notice. States he has the [employer] number. I informed him of home health services and aide care available and he would like to wait until Dr. Max to see him before making a decision. CM will continue to follow and assist with discharge planning/needs. Assembly Leader: Kate Pringle DCPIA - Discharge Planning Initial Assessment Updated by [email or web address]: Kate Pringle on 04/26/18 11:14 am * Is the patient Alert and Oriented? Yes * How many steps to enter\exit or inside your home? 3/0 * PCP Dr. Leon * Pharmacy [facility] * Preadmission Environment Home Alone * ADLs Partial Dependent * Partial ADLs (Assistance needed) Ambulation * Equipment Bedside Commode Cane Other Rolling Walker * List name and contact numbers for known caregivers / representatives who currently or will assist patient after discharge: Anjel Monique - friend - [phone] * Verbal permission to speak to the caregivers and representatives has been obtained from the patient. Yes * Community resources currently utilized Other * Please name any agencies selected above. Had PT at [facility] in [place] for DME * Additional services required to return to the preadmission environment? Yes * Can the patient safely return to the preadmission environment? No * Has this patient been hospitalized within the prior 30 days at any hospital? Yes Last DP export: 04/30/18 8:20 Patient Name: OMAR PETERSON Page 02114 at 0927 All edits/amendments must be made on the electronic document DICTATION DATE: 04/30/18925 BREWERY REPRESENTATIVE: RAYMOND 04/30/18925 RPT#: [id number] DC DATE:04/29/18 STATUS: DIS IN [facility] [address] [place] [address] END OF REPORT
--- NOTE | ~2018-04-22 | MORECARE ---
CASE MANAGEMENT DISCHARGE SUMMARY PATIENT: OMAR PETERSON UNIT: [id number] ADM DATE: 04/22/18 AGE: 62 : 57 SEX: M ROOM/BED: D.2223 AUTHOR: CAROLINE,DOC PHYSICIAN: REFERRING PHYSICIAN: ROSA FARIAS MD DATE OF SERVICE: 04/26/18 Discharge Plan Patient Name: OMAR PETERSON Facility: [facility]:[place] : 1955 Planned Disposition: Home Anticipated Discharge Date: Discharge Date: Expected LOS: Initial Reviewer: [email or web address] Initial Review Date: 04/26/2018 Generated: 04/26/18 12:25 pm Comments DCP- Discharge Planning Updated by [email or web address]: Kate Pringle on 04/26/18 10:[address] Patient Name: OMAR PETERSON Admission Status: ER Accout number: [id number] Admission Date: 04-22-2018 : 1955 Admission Diagnosis:INFECT/INFLM REACTION DUE TO INTERNAL LEFT KNEE PROSTH, Attending: ROSA FARIAS Current LOS: 4 Anticipated DC Date: Planned Disposition: Home Primary Insurance: MEDICAID [place] Discharge Planning Comments: CM met with patient to discuss discharge planning, he is alone in the room. He states his friend, Anjel Monique, will take him home on discharge. States he lives alone and is independent with his care. States he uses a cane or walker to ambulate. States he does have 3 steps to get into his home. States he has all the DME he needs. States he plans on returning home. States he will need 2 days notice to turn his electricity on. States his friend, Anjel, does his grocery shopping and will help with transportation. I asked if he used the [employer] transportation and he states he does but he needs to give 48 hours notice. States he has the [employer] number. I informed him of home health services and aide care available and he would like to wait until Dr. Max to see him before making a decision. CM will continue to follow and assist with discharge planning/needs. Commanding Officer Homicide Squad: Kate Pringle DCPIA - Discharge Planning Initial Assessment Updated by [email or web address]: Kate Pringle on 10/22/18 11:14 am * Is the patient Alert and Oriented? Yes * How many steps to enter\exit or inside your home? 3/0 * PCP Dr. Leon * [facility] * Preadmission Environment Home Alone * ADLs Partial Dependent * Partial ADLs (Assistance needed) Ambulation * Equipment Bedside Commode Cane Other Rolling Walker * List name and contact numbers for known caregivers / representatives who currently or will assist patient after discharge: Anjel Monique - [place] - [phone] * Verbal permission to speak to the caregivers and representatives has been obtained from the patient. Yes * Community resources currently utilized Other * Please name any agencies selected above. Had PT at [facility] in [place] for DME * Additional services required to return to the preadmission environment? Yes * Can the patient safely return to the preadmission environment? No * Has this patient been hospitalized within the prior 30 days at any hospital? Yes Last DP export: 04/26/18 10:18 Patient Name: OMAR PETERSON Page 28834 at 1125 All edits/amendments must be made on the electronic document DICTATION DATE: 04/26/18 112 PERFORMING ARTIST: RAYMOND 04/26/18 112 RPT#: [id number] DC DATE: STATUS: ADM IN [facility] [address] [place] [address] END OF REPORT
[2018-04-22 14:01] LABS: BASOPHILS 0.6 % (0-2); EOSINOPHILS 1.7 % (0-7); HEMATOCRIT 29.2 % (42.0-54.0); IMMATURE GRANULOCYTES 0.2 % (0-5); LYMPHOCYTES 27.6 % (15-50); MCHC 34.2 g/dL (31.0-37.0); MCV 96.4 fL (80.0-100.0); MEAN PLATELET VOLUME 8.2 fL (7.4-10.4); MONOCYTES 6.5 % (2-11); NEUTROPHILS 63.4 % (40-80); RBC 3.03 10x6/uL (4.20-6.10); RDW 14.1 % (11.5-14.5); WBC 6.3 10x3/uL (4.8-10.8)
[2018-04-22 14:03] LABS: PLATELET COUNT 452 10x3/uL (130-400)
[2018-04-22 14:14] LABS: ALBUMIN 3.5 g/dL (3.4-5.0); ANION GAP 11.7 mmol/L (8-16); BILIRUBIN - TOTAL 0.65 mg/dL (0.2-1.3); C-REACTIVE PROTEIN 4.6 mg/dL (0.0-0.9); CALCIUM 9.7 mg/dL (8.5-10.1); CARBON DIOXIDE 27.1 mmol/L (21.0-32.0); CREATININE - SERUM 1.4 mg/dL (0.6-1.3); POTASSIUM - SERUM 3.8 mmol/L (3.5-5.1)
[2018-04-22 15:03] LABS: ERYTHROCYTE SEDIMENTATION RATE 108 mm/hr (0-20)
[2018-04-22 15:18] VITALS: BP 119/78
[2018-04-22 21:24] VITALS: BP 127/79
[2018-04-23 02:53] VITALS: BP 127/79; BMI 32.5
[2018-04-23 05:18] VITALS: BP 125/94
[2018-04-23 08:57] VITALS: BP 129/81
[2018-04-23 12:30] VITALS: BP 108/84
[2018-04-23 13:43] VITALS: Ht 190.5 cm; Wt 117.9 kg
[2018-04-23 16:29] VITALS: BP 119/72
[2018-04-23 21:00] VITALS: BP 108/79
[2018-04-24 05:10] VITALS: BP 122/86
[2018-04-24 10:32] VITALS: BP 162/104
[2018-04-24 11:09] LABS: PROTEIN - BODY FLUID 6.1 G/DL
[2018-04-24 11:33] LABS: NEUT - BF 99 %
[2018-04-24 15:36] VITALS: BP 127/90
[2018-04-24 16:36] VITALS: BP 124/79
[2018-04-24 19:04] LABS: BASOPHILS 0.1 % (0-2); EOSINOPHILS 0.8 % (0-7); HEMATOCRIT 26.4 % (42.0-54.0); HEMOGLOBIN 8.9 g/dL (13.5-17.5); IMMATURE GRANULOCYTES 0.3 % (0-5); LYMPHOCYTES 16.1 % (15-50); MCH 32.7 pg (26.0-34.0); MCHC 33.7 g/dL (31.0-37.0); MCV 97.1 fL (80.0-100.0); MEAN PLATELET VOLUME 8.1 fL (7.4-10.4); MONOCYTES 7.2 % (2-11); NEUTROPHILS 75.5 % (40-80); RBC 2.72 10x6/uL (4.20-6.10); RDW 14.2 % (11.5-14.5); WBC 7.5 10x3/uL (4.8-10.8)
[2018-04-24 19:09] LABS: PLATELET COUNT 336 10x3/uL (130-400)
[2018-04-24 19:18] LABS: ANION GAP 13.9 mmol/L (8-16); CALCIUM 8.9 mg/dL (8.5-10.1); CARBON DIOXIDE 25.2 mmol/L (21.0-32.0); CREATININE - SERUM 1.3 mg/dL (0.6-1.3); POTASSIUM - SERUM 4.1 mmol/L (3.5-5.1)
[2018-04-24 21:09] VITALS: BP 108/72
[2018-04-25 01:31] VITALS: BP 116/70
[2018-04-25 06:05] VITALS: BP 136/89
[2018-04-25 08:42] VITALS: BP 129/77
[2018-04-25 11:48] VITALS: BP 109/73
[2018-04-25 20:36] VITALS: BP 119/78
[2018-04-26 06:51] VITALS: BP 108/66
[2018-04-26 07:43] VITALS: BP 108/75
[2018-04-26 11:43] LABS: HEMATOCRIT 23.5 % (42.0-54.0); MCH 32.4 pg (26.0-34.0); MEAN PLATELET VOLUME 8.1 fL (7.4-10.4); PLATELET COUNT 273 10x3/uL (130-400); RBC 2.47 10x6/uL (4.20-6.10); RDW 13.7 % (11.5-14.5)
[2018-04-26 11:44] VITALS: BP 100/60
[2018-04-26 11:48] LABS: MCV 95.1 fL (80.0-100.0); WBC 5.3 10x3/uL (4.8-10.8)
[2018-04-26 12:05] LABS: C-REACTIVE PROTEIN 11.4 mg/dL (0.0-0.9); CALC OSMOLALITY 270 mosm/kg (275-300); CALCIUM 8.8 mg/dL (8.5-10.1); CARBON DIOXIDE 29.4 mmol/L (21.0-32.0); CHLORIDE - SERUM 101 mmol/L (98-107); GLUCOSE 95 mg/dL (74-106); POTASSIUM - SERUM 3.8 mmol/L (3.5-5.1); SODIUM 136 mmol/L (136-145); UREA NITROGEN 11 mg/dL (7-18); eGFR NON AFRICAN AMERICAN 81 mL/min (90-120)
[2018-04-26 13:52] LABS: ERYTHROCYTE SEDIMENTATION RATE 109 mm/hr (0-20)
[2018-04-26 16:32] VITALS: BP 107/66
[2018-04-26 21:17] VITALS: BP 120/77
[2018-04-27 05:04] VITALS: BP 103/54
[2018-04-27 08:18] VITALS: BP 107/65
[2018-04-27 09:16] LABS: HEMATOCRIT 25.1 % (42.0-54.0); HEMOGLOBIN 8.6 g/dL (13.5-17.5); MCH 32.3 pg (26.0-34.0); MCHC 34.3 g/dL (31.0-37.0); MCV 94.4 fL (80.0-100.0); MEAN PLATELET VOLUME 8.6 fL (7.4-10.4); RBC 2.66 10x6/uL (4.20-6.10); RDW 13.9 % (11.5-14.5); WBC 5.4 10x3/uL (4.8-10.8)
[2018-04-27 12:18] VITALS: BP 133/69
[2018-04-27 17:49] VITALS: BP 112/76
[2018-04-27 20:00] VITALS: BP 118/80
[2018-04-28] VITALS (9 sets, daily range): BP systolic 106–125; BP diastolic 61–72
[2018-04-28 07:19] LABS: HEMATOCRIT 22.6 % (42.0-54.0); HEMOGLOBIN 7.7 g/dL (13.5-17.5); MCH 32.1 pg (26.0-34.0); MCHC 34.1 g/dL (31.0-37.0); MCV 94.2 fL (80.0-100.0); MEAN PLATELET VOLUME 8.8 fL (7.4-10.4); RBC 2.4 10x6/uL (4.20-6.10); RDW 13.9 % (11.5-14.5); WBC 4.6 10x3/uL (4.8-10.8)
[2018-04-29 00:42] VITALS: BP 138/72
[2018-04-29 04:35] VITALS: BP 154/79
[2018-04-29 05:55] LABS: HEMATOCRIT 26.5 % (42.0-54.0); HEMOGLOBIN 9.2 g/dL (13.5-17.5); MCH 31.2 pg (26.0-34.0); MCHC 34.7 g/dL (31.0-37.0); MEAN PLATELET VOLUME 8.8 fL (7.4-10.4); RDW 15.7 % (11.5-14.5); WBC 5.3 10x3/uL (4.8-10.8)
[2018-04-29 06:16] LABS: MCV 89.8 fL (80.0-100.0); RBC 2.95 10x6/uL (4.20-6.10)
[2018-04-29] MEDS ORDERED: ELIQUIS2.5 MG PO (08:14)
[2018-04-29] MEDS ORDERED: OXYCODONE-APAP1 TAB PO (08:14)
[2018-04-29] MEDS ORDERED: VIBRAMYCIN 100100 MG PO (08:15)
[2018-04-29] MEDS ORDERED: RIFADIN300 MG PO (08:24)
[2018-04-29 09:45] VITALS: BP 140/71
[2018-04-29 13:20] VITALS: BP 158/76
[2018-04-29 17:07] VITALS: BP 135/63
== END 2018-04-29 18:26 | disposition home health service (06) | DRG 486 ==
LOC: D.ER 13:21 → D.M2 16:18 → D.EDHOLD 16:18 → D.MS 16:18 → D.M2 04-24 18:34 → D.MS 04-25 14:00 → D.SDCHOLD 04-26 15:46 → D.MS 04-26 15:48
PROVIDERS: Family Medicine; Internal Medicine Interventional Cardiology; Orthopaedic Surgery
PROC: 0SUW09Z Supplement Left Knee Joint, Tibial Surface with Liner, Open Approach (ICD-10-PCS; 2018-04-24)
PROC: 0KBT0ZZ Excision of Left Lower Leg Muscle, Open Approach (ICD-10-PCS; 2018-04-24)
PROC: 0SPD09Z Removal of Liner from Left Knee Joint, Open Approach (ICD-10-PCS; principal; 2018-04-24 08:00)
PROC: 0SCD0ZZ Extirpation of Matter from Left Knee Joint, Open Approach (ICD-10-PCS; 2018-04-24 08:00)
DX: T84.54XA Infection and inflammatory reaction due to internal left knee prosthesis, initial encounter (principal); M96.840 Postprocedural hematoma of a musculoskeletal structure following a musculoskeletal system procedure; D62 Acute posthemorrhagic anemia; I47.1 Supraventricular tachycardia; W19.XXXA Unspecified fall, initial encounter; F17.200 Nicotine dependence, unspecified, uncomplicated; R41.0 Disorientation, unspecified

== ENCOUNTER 2018-05-03 20:48 | Inpatient (IN) | payer MEDICAID ==
[~2018-05-03] VITALS: Ht 190.5 cm; Wt 118.8 kg
--- NOTE | ~2018-05-03 | MORECARE ---
CASE MANAGEMENT DISCHARGE SUMMARY PATIENT: OMAR PETERSON UNIT: [id number] ADM DATE: 05/04/18 AGE: 62 : 57 SEX: M ROOM/BED: D.2236 AUTHOR: RAMYA VELAZQUEZ PHYSICIAN: REFERRING PHYSICIAN: ROSA FARIAS MD DATE OF SERVICE: 05/06/18 Discharge Plan Patient Name: OMAR PETERSON [facility] [facility] 1955 Planned Disposition: Home Anticipated Discharge Date: Discharge Date: Expected LOS: Initial Reviewer: [email or web address] Initial Review Date: 05/05/2018 Generated: 05/06/18 4:49 pm DCPIA - Discharge Planning Initial Assessment Updated by [email or web address]: Kate Pringle on 05/06/18 3:47 pm * Is the patient Alert and Oriented? Yes * How many steps to enter\exit or inside your home? 3/0 * PCP Dr. Leon * [facility] * Preadmission Environment Home Alone * ADLs Partial Dependent * Partial ADLs (Assistance needed) Ambulation * Equipment Bedside Commode Other Rolling Walker * Other Equipment CPM machine from [employer] * List name and contact numbers for known caregivers / representatives who currently or will assist patient after discharge: Anjel Eneida [facility] - [phone] * Verbal permission to speak to the caregivers and representatives has been obtained from the patient. Yes * Community resources currently utilized Home Health * Please name any agencies selected above. [facility] * Additional services required to return to the preadmission environment? Yes * Can the patient safely return to the preadmission environment? Yes * Has this patient been hospitalized within the prior 30 days at any hospital? Yes Patient Name: OMAR PETERSON Page [id number] at 1549 All edits/amendments must be made on the electronic document DICTATION DATE: 05/06/181548 PILE DRIVING TECHNICIAN: RAYMOND 05/06/18 154 RPT#: [id number] DC DATE: STATUS: ADM IN [facility] [address] [place] [address] END OF REPORT
--- NOTE | ~2018-05-03 | MORECARE ---
CASE MANAGEMENT DISCHARGE SUMMARY PATIENT: OMAR PETERSON UNIT: [id number] ADM DATE: 05/04/18 AGE: 62 : 57 SEX: M ROOM/BED: D.2236 AUTHOR: CAROLINE,DOC PHYSICIAN: REFERRING PHYSICIAN: ROSA FARIAS MD DATE OF SERVICE: 05/07/18 Discharge Plan Patient Name: OMAR PETERSON Facility: [facility]:[place] : 1955 Planned Disposition: Home Anticipated Discharge Date: Discharge Date: Expected LOS: Initial Reviewer: [email or web address] Initial Review Date: 05/05/2018 Generated: 05/07/18 3:52 pm Comments DCP- Discharge Planning Updated by [email or web address]: Kate Helmsarti on 05/07/18 1:[address] Received orders for discharge. He will go home with the resumption of home health. I spoke with Venecia at [facility] and faxed clinical. She states they will see him this weekend. Patient informed Home health will see this weekend. [facility] is opening additional Medicaid slots for medication. He states he will be able to get all his medications. States his friend will pick him up. CM will continue to follow and assist with discharge planning/needs. DCP- Discharge Planning Updated by [email or web address]: Kate Pringle on 05/06/18 2:[address] Patient Name: OMAR PETERSON Admission Status: ER Accout number: [id number] Admission Date: 05-04-2018 : 1955 Admission Diagnosis:PAIN DUE TO INTERNAL ORTHOPEDIC PROSTH DEV/GRFT, INIT Attending: ROSA FARIAS Current LOS: 2 Anticipated DC Date: Planned Disposition: Home Primary Insurance: MEDICAID [place] Discharge Planning Comments: CM met with patient to discuss discharge planning, he is alone in the room. He states he lives alone and he gets help from his friend Anjel. He states he does have his BSC, walker and CPM machine at home. States he feels he can return home with home health but would like personal aide help as well and he is unable to pay for aide. I called and spoke Barbara with [facility] and she will be here in the morning to help with application for personal care. Patient states he may need help obtaining any new medications ordered at discharge. CM will continue to follow and assist with discharge planning/needs. Phlebotomy Specialist: Kate Pino DCPIA - Discharge Planning Initial Assessment Updated by [email or web address]: Kate Pino on 05/06/18 3:47 pm * Is the patient Alert and Oriented? Yes * How many steps to enter\exit or inside your home? 3/0 * PCP Dr. Leon * Pharmacy [facility] * Preadmission Environment Home Alone * ADLs Partial Dependent * Partial ADLs (Assistance needed) Ambulation * Equipment Bedside Commode Other Rolling Walker * Other Equipment CPM machine from [employer] * List name and contact numbers for known caregivers / representatives who currently or will assist patient after discharge: Anjel Eneida - [place] - [phone] * Verbal permission to speak to the caregivers and representatives has been obtained from the patient. Yes * Community resources currently utilized Home Health * Please name any agencies selected above. [facility] * Additional services required to return to the preadmission environment? Yes * Can the patient safely return to the preadmission environment? Yes * Has this patient been hospitalized within the prior 30 days at any hospital? Yes External Providers [facility] Next Contact Date: Service Request Date: Service Type: Resolution: Reviewer: Comments: Last DP export: 05/06/18 2:57 p Patient Name: OMAR PETERSON Page 74541 at 1452 All edits/amendments must be made on the electronic document DICTATION DATE: 05/07/181450 CONTACT CENTER ANALYST: RAYMOND 05/07/181450 RPT#: [id number] DC DATE: STATUS: ADM IN [facility] [address] [place] [address] END OF REPORT
--- NOTE | ~2018-05-03 | HEMODYNAMI ---
PATIENT:OMAR PETERSON MEDICAL RECORD: [id number] : 57 LOCATION:D.MS [id number] ADMISSION DATE: 05/04/18 Generatedon:05/06/20188:43 Patient name: OMAR PETERSON Patient #: [id number] SSN: D OB: 1955 Date of study: 05/06/2018 Page: Of Hemodynamic Procedure Report Patient Data Patient Demographics Procedure consent was obtained First Name: OMAR Gender: Male Last Name: NICHOLAS : 1955 Middle Initial: JANA Age: 62 year(s) Patient #: [id number] Race: Black Additional ID: [id number] Contact details Address: [address] [place] [address] State: [place] City: [place] Zip code: [address] Admission Admission Data Admission Date: 05/04/2018 Admission Time: 3:06 Room #: D.2236 Procedure Procedure Types Cath Procedure Peripheral Cath Diagnostic Procedure Miscellaneous Aspiration/Injection (Joint) Procedure Description Procedure Date Procedure Date: 05/06/2018 Procedure Start Time: 8:27 Procedure Staff Name Function Santosh Malcolm MD Performing Physician Benito Rosales RT Scrub Benito Rosales RT Monitor Stephanie Jones RN Nurse Hemodynamics Rest Pre Cath Intra NCS Post Cath Procedure Log Time Note 8:12:13 Benito Rosales RT (R) (CV) sent for patient. Start room use. 8:12:31 Patient received from Med/Surg to IR Alert and oriented. Tansferred to table in Supine position. 8:12:32 Correct patient and procedure confirmed by team. 8:12:34 Signed procedure consent form obtained from patient. 8:12:37 8:12:38 Pre-procedure instructions explained to patient. 8:12:38 Pre-op teaching completed and patient verbalized understanding. 8:12:43 Is the patient allergic to Iodine/contrast media? No. 8:12:53 pt states no blood thinners 8:26:55 Physician arrived 8:26:55 --------ALL STOP TIME OUT------ 8:26:56 Final Timeout: patient, procedure, and site verified with staff and physician. All members of the team are in agreement. 8:27:01 Left knee site verified by team. 8:27:21 Sedation plan: Local Anesthetic Medication:Lidocaine 8:27:31 Procedure started. 8:27:32 Full Disclosure recording started 8:27:44 Local anesthetic to left kmee with Lidocaine 1% by Santosh Malcolm MD.INITIAL ACCESS ONLY 8:40:39 SAFE-T PLUS MYELOGRAM TRAY opened to sterile field. 8:40:45 Procedure ended.(Physican Out) 8:41:07 fluid sent to lab 8:41:18 Sharps counted by scrub and verified by R.N. 8:41:22 Insertion/operative site no bleeding no hematoma. 8:42:02 bandaide applied site stable 8:42:18 Report given to Med/Surg. 8:42:26 Patient transfered to Med/Surg with Bed. Device Usage Item Name Manufacture Quantity Catalog Hospital Part Current Minimal Lot# / Number Charge Number Stock Stock Serial# Code SAFE-T [employer] 1 [id number] PLUS MYELOGRAM TRAY Signature Audit [place] Stage Time Signature Unsigned Intra-Procedure 05/06/2018 Benito 8:43:21 AM Connie SEVILLA (R) (CV) Signatures Monitor : Benito Signature : Connie RT Date : Time : [address] [address]
--- NOTE | ~2018-05-03 | MORECARE ---
CASE MANAGEMENT DISCHARGE SUMMARY PATIENT: OMAR PETERSON UNIT: [id number] ADM DATE: 05/04/18 AGE: 62 : 57 SEX: M ROOM/BED: D.2236 AUTHOR: CAROLINE,DOC PHYSICIAN: REFERRING PHYSICIAN: ROSA FARIAS MD DATE OF SERVICE: 05/06/18 Discharge Plan Patient Name: OMAR PETERSON Facility: [facility]:[place] : 1955 Planned Disposition: Home Anticipated Discharge Date: Discharge Date: Expected LOS: Initial Reviewer: [email or web address] Initial Review Date: 05/05/2018 Generated: 05/06/18 4:57 pm Comments DCP- Discharge Planning Updated by [email or web address]: Kate Pringle on 05/06/18 2:[address] Patient Name: OMAR PETERSON Admission Status: ER Accout number: [id number] Admission Date: 05-04-2018 : 1955 Admission Diagnosis:PAIN DUE TO INTERNAL ORTHOPEDIC PROSTH DEV/GRFT, INIT Attending: ROSA FARIAS Current LOS: 2 Anticipated DC Date: Planned Disposition: Home Primary Insurance: MEDICAID [place] Discharge Planning Comments: CM met with patient to discuss discharge planning, he is alone in the room. He states he lives alone and he gets help from his friend Anjel. He states he does have his BSC, walker and CPM machine at home. States he feels he can return home with home health but would like personal aide help as well and he is unable to pay for aide. I called and spoke Barbara with [facility] and she will be here in the morning to help with application for personal care. Patient states he may need help obtaining any new medications ordered at discharge. CM will continue to follow and assist with discharge planning/needs. Remelt Operator: Kate Pringle DCPIA - Discharge Planning Initial Assessment Updated by [email or web address]: Kate Pringle on 05/06/18 3:47 pm * Is the patient Alert and Oriented? Yes * How many steps to enter\exit or inside your home? 3/0 * PCP Dr. Leon * [facility]acy [facility] * Preadmission Environment Home Alone * ADLs Partial Dependent * Partial ADLs (Assistance needed) Ambulation * Equipment Bedside Commode Other Rolling Walker * Other Equipment CPM machine from [employer] * List name and contact numbers for known caregivers / representatives who currently or will assist patient after discharge: Anjel Monique - friend - [phone] * Verbal permission to speak to the caregivers and representatives has been obtained from the patient. Yes * Community resources currently utilized Home Health * Please name any agencies selected above. [facility] * Additional services required to return to the preadmission environment? Yes * Can the patient safely return to the preadmission environment? Yes * Has this patient been hospitalized within the prior 30 days at any hospital? Yes Last DP export: 05/06/18 2:49 p Patient Name: OMAR PETERSON Page [id number] at 1557 All edits/amendments must be made on the electronic document DICTATION DATE: 05/06/181555 FORESTRY ENGINEER: RAYMOND 05/06/181555 RPT#: [id number] DC DATE: STATUS: ADM IN [facility] [address] [place] [address] END OF REPORT
--- NOTE | ~2018-05-03 | MORECARE ---
CASE MANAGEMENT DISCHARGE SUMMARY PATIENT: OMAR PETERSON UNIT: [id number] ADM DATE: 05/04/18 AGE: 62 : 57 SEX: M ROOM/BED: D.2236 AUTHOR: RAMYA VELAZQUEZ PHYSICIAN: REFERRING PHYSICIAN: ROSA FARIAS MD DATE OF SERVICE: 05/10/18 Discharge Plan Patient Name: OMAR PETERSON Facility: [facility]:[place] : 1955 Planned Disposition: Home Anticipated Discharge Date: Discharge Date: 05/07/2018 Expected LOS: Initial Reviewer: [email or web address] Initial Review Date: 05/05/2018 Generated: 05/10/18 5:39 pm Comments DCP- Discharge Planning Updated by [email or web address]: Kate Helmsarti on 05/07/18 2:[address] Received orders for discharge. He will go home with the resumption of home health. I spoke with Venecia at [facility] and faxed clinical. She states they will see him this weekend. Patient informed Home health will see this weekend. [facility] is opening additional Medicaid slots for medication. He states he will be able to get all his medications. States his friend will pick him up. CM will continue to follow and assist with discharge planning/needs. DCP- Discharge Planning Updated by [email or web address]: Kate Helmsarti on 05/06/18 3:[address] Patient Name: OMAR PETERSON Admission Status: ER Accout number: [id number] Admission Date: 05-04-2018 : 1955 Admission Diagnosis:PAIN DUE TO INTERNAL ORTHOPEDIC PROSTH DEV/GRFT, INIT Attending: ROSA FARIAS Current LOS: 2 Anticipated DC Date: Planned Disposition: Home Primary Insurance: MEDICAID [place] Discharge Planning Comments: CM met with patient to discuss discharge planning, he is alone in the room. He states he lives alone and he gets help from his friend Anjel. He states he does have his BSC, walker and CPM machine at home. States he feels he can return home with home health but would like personal aide help as well and he is unable to pay for aide. I called and spoke Barbara with [facility] and she will be here in the morning to help with application for personal care. Patient states he may need help obtaining any new medications ordered at discharge. CM will continue to follow and assist with discharge planning/needs. Lace Finisher: Kate Pino DCPIA - Discharge Planning Initial Assessment Updated by [email or web address]: Kate Helmsarti on 05/06/18 3:47 pm * Is the patient Alert and Oriented? Yes * How many steps to enter\exit or inside your home? 3/0 * PCP Dr. Leon * Pharmacy [facility] * Preadmission Environment Home Alone * ADLs Partial Dependent * Partial ADLs (Assistance needed) Ambulation * Equipment Bedside Commode Other Rolling Walker * Other Equipment CPM machine from [email or web address] * List name and contact numbers for known caregivers / representatives who currently or will assist patient after discharge: Anjel Eneida [facility] - [phone] * Verbal permission to speak to the caregivers and representatives has been obtained from the patient. Yes * Community resources currently utilized Home Health * Please name any agencies selected above. [facility] * Additional services required to return to the preadmission environment? Yes * Can the patient safely return to the preadmission environment? Yes * Has this patient been hospitalized within the prior 30 days at any hospital? Yes Last DP export: 05/07/18 2:52 p Patient Name: OMAR PETERSON Page 60109 at 1639 All edits/amendments must be made on the electronic document DICTATION DATE: 05/10/181637 LOOM BLOWER: RAYMOND 05/10/181637 RPT#: [id number] DC DATE:05/07/18 STATUS: DIS IN [facility] [address] [place] [address] END OF REPORT
[~2018-05-03 20:48] MED LIST changes: +OXYCODONE-APAP1 TAB PO; +RIFADIN300 MG PO; +VIBRAMYCIN 100100 MG PO
[2018-05-03 23:02] VITALS: BP 135/102
[2018-05-03 23:41] LABS: HEMATOCRIT 29.1 % (42.0-54.0); LYMPHOCYTES 39.4 % (15-50); MCH 31.1 pg (26.0-34.0); MCHC 34.4 g/dL (31.0-37.0); MCV 90.4 fL (80.0-100.0); MEAN PLATELET VOLUME 8.7 fL (7.4-10.4); NEUTROPHILS 49.8 % (40-80); RBC 3.22 10x6/uL (4.20-6.10); RDW 16.2 % (11.5-14.5); WBC 5.8 10x3/uL (4.8-10.8)
[2018-05-03 23:44] LABS: PLATELET COUNT 404 10x3/uL (130-400)
[2018-05-03 23:56] LABS: ALBUMIN 2.9 g/dL (3.4-5.0); ALKALINE PHOSPHATASE 61 U/L (46-116); ALT (SGPT) 26 U/L (10-68); BILIRUBIN - TOTAL 0.44 mg/dL (0.2-1.3); C-REACTIVE PROTEIN 4.3 mg/dL (0.0-0.9); CALC OSMOLALITY 264 mosm/kg (275-300); CALCIUM 9.4 mg/dL (8.5-10.1); CARBON DIOXIDE 27.5 mmol/L (21.0-32.0); CHLORIDE - SERUM 97 mmol/L (98-107); GLUCOSE 88 mg/dL (74-106); POTASSIUM - SERUM 3.5 mmol/L (3.5-5.1); PROTEIN - SERUM 8.4 g/dL (6.4-8.2); SODIUM 134 mmol/L (136-145); UREA NITROGEN 8 mg/dL (7-18); eGFR NON AFRICAN AMERICAN 81 mL/min (90-120)
[2018-05-04] VITALS (7 sets, daily range): BP systolic 100–153; BP diastolic 53–84; Ht 190.5 cm; Wt 118.8 kg
[2018-05-04 00:55] LABS: ERYTHROCYTE SEDIMENTATION RATE 95 mm/hr (0-20)
[2018-05-04 06:35] LABS: HEMATOCRIT 30.1 % (42.0-54.0); HEMOGLOBIN 10.4 g/dL (13.5-17.5); MCH 30.7 pg (26.0-34.0); MCHC 34.6 g/dL (31.0-37.0); MCV 88.8 fL (80.0-100.0); MEAN PLATELET VOLUME 9.9 fL (7.4-10.4); PLATELET COUNT 412 10x3/uL (130-400); RBC 3.39 10x6/uL (4.20-6.10); RDW 15.2 % (11.5-14.5); WBC 5.5 10x3/uL (4.8-10.8)
[2018-05-04 06:58] LABS: ANION GAP 13.3 mmol/L (8-16); BILIRUBIN - TOTAL 0.47 mg/dL (0.2-1.3); CALCIUM 9.3 mg/dL (8.5-10.1); CARBON DIOXIDE 23.5 mmol/L (21.0-32.0); CREATININE - SERUM 1.1 mg/dL (0.6-1.3); POTASSIUM - SERUM 3.8 mmol/L (3.5-5.1); PROTEIN - SERUM 8.4 g/dL (6.4-8.2)
[2018-05-04 07:34] LABS: ANISOCYTOSIS OCC; EOSINOPHILS 1 % (0-7); HYPOCHROMASIA OCC; LYMPHOCYTES 37 % (15-50); MONOCYTES 19 % (2-11); NEUTROPHILS 41 % (40-80); PLATELET ESTIMATE INCREASED; ROULEAUX OCC; SCHISTOCYTES OCC
[2018-05-05 06:00] VITALS: BP 117/68
[2018-05-05 09:28] VITALS: BP 108/70
[2018-05-05 12:49] VITALS: BP 109/82
[2018-05-05 16:46] VITALS: BP 108/73
[2018-05-05 17:07] LABS: APPEARANCE HAZY (CLEAR); BILIRUBIN NEGATIVE (NEGATIVE); COLOR YELLOW (YELLOW); GLUCOSE NEGATIVE (NEGATIVE); KETONE NEGATIVE (NEGATIVE); NITRITE NEGATIVE (NEGATIVE); PROTEIN NEGATIVE (NEGATIVE)
[2018-05-05 20:00] VITALS: BP 116/78
[2018-05-06 05:00] VITALS: BP 121/83
[2018-05-06 06:11] LABS: BASOPHILS 0.4 % (0-2); EOSINOPHILS 4.5 % (0-7); HEMATOCRIT 27.5 % (42.0-54.0); HEMOGLOBIN 9.3 g/dL (13.5-17.5); LYMPHOCYTES 34.9 % (15-50); MCH 30.9 pg (26.0-34.0); MCHC 33.8 g/dL (31.0-37.0); MEAN PLATELET VOLUME 8.8 fL (7.4-10.4); MONOCYTES 13.1 % (2-11); NEUTROPHILS 47.1 % (40-80); RBC 3.01 10x6/uL (4.20-6.10); RDW 15.6 % (11.5-14.5); WBC 5.6 10x3/uL (4.8-10.8)
[2018-05-06 06:39] LABS: INR 1.14 (0.85-1.17); PROTIME 14.2 SECONDS (11.6-15.0)
[2018-05-06 06:40] LABS: APTT 36.6 SECONDS (22.8-39.4)
[2018-05-06 06:41] LABS: MCV 91.4 fL (80.0-100.0); PLATELET COUNT 528 10x3/uL (130-400)
[2018-05-06 06:45] LABS: CALC OSMOLALITY 269 mosm/kg (275-300); CALCIUM 8.9 mg/dL (8.5-10.1); CARBON DIOXIDE 26.6 mmol/L (21.0-32.0); CHLORIDE - SERUM 101 mmol/L (98-107); GLUCOSE 96 mg/dL (74-106); SODIUM 136 mmol/L (136-145); UREA NITROGEN 7 mg/dL (7-18); eGFR NON AFRICAN AMERICAN 81 mL/min (90-120)
[2018-05-06 09:32] VITALS: BP 107/76
[2018-05-06 12:00] VITALS: BP 116/72
[2018-05-06 21:35] VITALS: BP 125/86
[2018-05-07 05:12] VITALS: BP 129/83
[2018-05-07 08:29] VITALS: BP 136/68
[2018-05-07 10:48] LABS: ERYTHROCYTE SEDIMENTATION RATE 82 mm/hr (0-20)
[2018-05-07 12:21] VITALS: BP 130/61
[2018-05-07] MEDS ORDERED: RIMACTANE300 MG PO (12:38)
[2018-05-07] MEDS ORDERED: OXYCODONE-APAP1 TAB PO (13:06)
[2018-05-07] MEDS ORDERED: ELIQUIS2.5 MG PO (13:06)
== END 2018-05-07 17:35 | disposition home health service (06) | DRG 561 ==
LOC: D.ER 20:48 → D.MS 05-04 03:06 → D.ER 05-04 03:26 → D.MS 05-07 17:35
PROVIDERS: Family Medicine; Orthopaedic Surgery; Radiology Vascular & Interventional Radiology; Student in an Organized Health Care Education/Training Program
PROC: 0S9D3ZZ Drainage of Left Knee Joint, Percutaneous Approach (ICD-10-PCS; principal; 2018-05-06 08:00)
DX: T84.84XA Pain due to internal orthopedic prosthetic devices, implants and grafts, initial encounter (principal); Z87.891 Personal history of nicotine dependence; T84.54XA Infection and inflammatory reaction due to internal left knee prosthesis, initial encounter; K21.9 Gastro-esophageal reflux disease without esophagitis; M81.0 Age-related osteoporosis without current pathological fracture; F12.90 Cannabis use, unspecified, uncomplicated

== ENCOUNTER → 2018-05-20 16:56 | Outpatient (CLI) | payer MEDICAID ==
[2018-05-04 16:46] VITALS: BMI 32.7
[~2018-05-20 16:56] MED LIST changes: +CLEOCIN HCL300 MG PO; +KEFLEX500 MG PO; +RIMACTANE300 MG PO
[2018-05-20 17:28] LABS: BASOPHILS 0.4 % (0-2); EOSINOPHILS 2.5 % (0-7); HEMATOCRIT 34.4 % (42.0-54.0); HEMOGLOBIN 11.6 g/dL (13.5-17.5); IMMATURE GRANULOCYTES 0.3 % (0-5); LYMPHOCYTES 37.5 % (15-50); MCH 31.4 pg (26.0-34.0); MCHC 33.7 g/dL (31.0-37.0); MONOCYTES 10.5 % (2-11); NEUTROPHILS 48.8 % (40-80); RDW 16.5 % (11.5-14.5); WBC 6.7 10x3/uL (4.8-10.8)
[2018-05-20 17:29] LABS: PLATELET COUNT 290 10x3/uL (130-400)
[2018-05-20 18:46] LABS: ERYTHROCYTE SEDIMENTATION RATE 110 mm/hr (0-20)
== END | disposition home or self-care (01) ==
LOC: D.LABREF 16:56
PROVIDERS: Orthopaedic Surgery
DX: M25.562 Pain in left knee (principal)

== ENCOUNTER 2018-05-21 06:11 | Emergency (ER) | payer MEDICAID ==
[~2018-05-21] VITALS: Ht 190.5 cm; Wt 104.5 kg
[~2018-05-21 06:11] MED LIST changes: -CLEOCIN HCL300 MG PO; -KEFLEX500 MG PO
[2018-05-21 06:13] VITALS: Ht 190.5 cm; Wt 104.5 kg
[2018-05-21 06:35] LABS: BASOPHILS 0.5 % (0-2); EOSINOPHILS 0.8 % (0-7); HEMATOCRIT 33.3 % (42.0-54.0); HEMOGLOBIN 11.3 g/dL (13.5-17.5); IMMATURE GRANULOCYTES 0.3 % (0-5); LYMPHOCYTES 32.8 % (15-50); MCHC 33.9 g/dL (31.0-37.0); MCV 91.5 fL (80.0-100.0); MEAN PLATELET VOLUME 8.5 fL (7.4-10.4); MONOCYTES 10.2 % (2-11); NEUTROPHILS 55.4 % (40-80); PLATELET COUNT 263 10x3/uL (130-400); RBC 3.64 10x6/uL (4.20-6.10); RDW 16.1 % (11.5-14.5); WBC 7.8 10x3/uL (4.8-10.8)
[2018-05-21 06:47] LABS: ALBUMIN 3.7 g/dL (3.4-5.0); ANION GAP 15.5 mmol/L (8-16); BILIRUBIN - TOTAL 0.27 mg/dL (0.2-1.3); CALCIUM 10.5 mg/dL (8.5-10.1); CARBON DIOXIDE 22.7 mmol/L (21.0-32.0); CREATININE - SERUM 1.4 mg/dL (0.6-1.3); POTASSIUM - SERUM 4.2 mmol/L (3.5-5.1); PROTEIN - SERUM 9.3 g/dL (6.4-8.2)
[2018-05-21] MEDS ORDERED: KEFLEX500 MG PO (07:15)
[2018-05-21] MEDS ORDERED: CLEOCIN HCL300 MG PO (07:15)
[2018-05-21 08:59] VITALS: BP 137/88
== END 2018-05-21 09:00 | disposition home or self-care (01) ==
LOC: D.ER 06:11
PROVIDERS: Family Medicine
DX: M25.562 Pain in left knee (principal); L03.116 Cellulitis of left lower limb; W07.XXXA Fall from chair, initial encounter; Y93.89 Activity, other specified; Y92.019 Unspecified place in single-family (private) house as the place of occurrence of the external cause; G40.909 Epilepsy, unspecified, not intractable, without status epilepticus; K21.9 Gastro-esophageal reflux disease without esophagitis; F17.200 Nicotine dependence, unspecified, uncomplicated

== ENCOUNTER 2018-05-24 14:42 | Emergency (ER) | payer MEDICAID ==
[~2018-05-24] VITALS: Ht 190.5 cm; Wt 103.9 kg
[~2018-05-24 14:42] MED LIST changes: +CLEOCIN HCL300 MG PO; +KEFLEX500 MG PO
[2018-05-24 14:47] VITALS: Ht 190.5 cm; Wt 103.9 kg
[2018-05-24 15:37] LABS: BASOPHILS 0.4 % (0-2); EOSINOPHILS 1.1 % (0-7); HEMATOCRIT 34.5 % (42.0-54.0); HEMOGLOBIN 11.7 g/dL (13.5-17.5); IMMATURE GRANULOCYTES 0.1 % (0-5); LYMPHOCYTES 39.4 % (15-50); MCH 31.1 pg (26.0-34.0); MCHC 33.9 g/dL (31.0-37.0); MCV 91.8 fL (80.0-100.0); MEAN PLATELET VOLUME 8.4 fL (7.4-10.4); MONOCYTES 9.6 % (2-11); NEUTROPHILS 49.4 % (40-80); PLATELET COUNT 254 10x3/uL (130-400); RBC 3.76 10x6/uL (4.20-6.10); RDW 16.2 % (11.5-14.5)
[2018-05-24 15:50] LABS: ALBUMIN 3.6 g/dL (3.4-5.0); ANION GAP 10.6 mmol/L (8-16); BILIRUBIN - TOTAL 0.29 mg/dL (0.2-1.3); C-REACTIVE PROTEIN 1.9 mg/dL (0.0-0.9); CALCIUM 10.1 mg/dL (8.5-10.1); CREATININE - SERUM 1.8 mg/dL (0.6-1.3); POTASSIUM - SERUM 3.6 mmol/L (3.5-5.1); PROTEIN - SERUM 9.3 g/dL (6.4-8.2)
[2018-05-24 16:58] LABS: ERYTHROCYTE SEDIMENTATION RATE 85 mm/hr (0-20)
[2018-05-24 17:42] VITALS: BP 109/79
== END 2018-05-24 17:43 | disposition home or self-care (01) ==
LOC: D.ER 14:42
PROVIDERS: Emergency Medicine
DX: G89.29 Other chronic pain (principal); T84.54XA Infection and inflammatory reaction due to internal left knee prosthesis, initial encounter; G40.909 Epilepsy, unspecified, not intractable, without status epilepticus; K21.9 Gastro-esophageal reflux disease without esophagitis

== ENCOUNTER → 2018-09-08 20:36 | Outpatient (CLI) | payer MEDICAID | END | disposition home or self-care (01) | LOC: D.LABREF 20:36 | PROVIDERS: ATTEND Orthopaedic Surgery | DX: M79.605 Pain in left leg (principal) ==

== ENCOUNTER 2018-09-09 11:15 | Inpatient (IN) | payer MEDICAID ==
[~2018-09-09] VITALS: Ht 190.5 cm; Wt 104.5 kg
[2018-09-29] MEDS ORDERED: HYDROCODONE-IB1 EAC3 PO (10:42)
[2018-09-29 11:15] LABS: BASOPHILS 0.5 % (0-2); EOSINOPHILS 4.2 % (0-7); HEMATOCRIT 39.2 % (42.0-54.0); HEMOGLOBIN 13.3 g/dL (13.5-17.5); LYMPHOCYTES 37.9 % (15-50); MCH 31.4 pg (26.0-34.0); MCHC 33.9 g/dL (31.0-37.0); MCV 92.7 fL (80.0-100.0); MEAN PLATELET VOLUME 8.5 fL (7.4-10.4); MONOCYTES 7.5 % (2-11); NEUTROPHILS 49.9 % (40-80); PLATELET COUNT 204 10x3/uL (130-400); RBC 4.23 10x6/uL (4.20-6.10); RDW 16.3 % (11.5-14.5); WBC 4.3 10x3/uL (4.8-10.8)
[2018-09-29 11:24] LABS: ANION GAP 13.3 mmol/L (8-16); CALCIUM 9.5 mg/dL (8.5-10.1); CARBON DIOXIDE 29.9 mmol/L (21.0-32.0); CREATININE - SERUM 1.1 mg/dL (0.6-1.3); POTASSIUM - SERUM 4.2 mmol/L (3.5-5.1)
[2018-09-29 11:29] LABS: APTT 28.9 SECONDS (22.8-39.4); INR 1.04 (0.85-1.17); PROTIME 13.1 SECONDS (11.6-15.0)
[2018-09-29 11:49] LABS: APPEARANCE HAZY (CLEAR); BILIRUBIN NEGATIVE (NEGATIVE); COLOR DK YELLOW (YELLOW); GLUCOSE NEGATIVE (NEGATIVE); KETONE NEGATIVE (NEGATIVE); NITRITE NEGATIVE (NEGATIVE); PROTEIN NEGATIVE (NEGATIVE); SPECIFIC GRAVITY 1.015 (1.005-1.020)
[2018-09-29 11:50] LABS: BACTERIA FEW /hpf (NONE SEEN); EPITHELIAL CELLS 0-5 /hpf (0-5); MUCUS <1+ /lpf (NONE SEEN); RED CELLS - URINE 0-5 /hpf (0-5)
[2018-10-04 06:06] VITALS: BP 137/89; BMI 29.4
--- NOTE | 2018-10-04 08:27 | NUR ---
PLASMA BLADE SET 6/8 BOVIE PAD RIGHT THIGH [id number] EXP 12/25/2019
[2018-10-04 10:16] VITALS: BP 132/89
--- NOTE | 2018-10-04 10:19 | NUR ---
Received report from [email or web address] in recoverty at 1000. Received patient at this time to assume care. VS stable. No c/o pain. Patient c/o itching in recovery; wonders if it may have been from Demerol.
[2018-10-04 13:59] VITALS: BP 114/90
[2018-10-04 15:12] VITALS: BP 108/81; Ht 190.5 cm; Wt 104.5 kg
[2018-10-04 17:10] VITALS: BP 110/68
--- NOTE | 2018-10-04 19:40 | NUR ---
SITTING UP IN BED EATING SNACKS. ALERT AND ORIENTED X4. RATES PAIN IN LT KNEE 6. EXECUTIVE COMMUNITY PLANNING DILAUDID IN USE. HALI WRAP DRESSING NOTED TO LT KNEE. NO EDEMA NOTED. MEPILEX BORDER DRSG TO BILAT HEELS FOR PROTECTION. RESP EVEN AND NONLABORED. BBS CTA. ABD SOFT, NONTENDER. BS PRESENT X4 QUADS. 1/2 NS @ 100 ML/HR INFUSING IN LT WRIST WITHOUT DIFF. ENCOURAGED TO TURN, COUGH AND DEEP BREATHE Q 2HOURS. SR ELEVATED X2. CL IN REACH. NO DISTRESS.
[2018-10-04 20:00] VITALS: BP 100/70
[2018-10-05] VITALS: BP 100/73
--- NOTE | 2018-10-05 00:15 | NUR ---
SITTING UP IN BED EATING JELLO. NO DISTRESS. CL IN REACH.
[2018-10-05 04:00] VITALS: BP 123/88
--- NOTE | 2018-10-05 04:07 | NUR ---
HAS BEEN AWAKE MOST OF THE NIGHT. 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 NO DISTRESS. ICE PACK IN USE TO LT KNEE. CL IN REACH.
[2018-10-05 07:35] LABS: HEMATOCRIT 33.4 % (42.0-54.0); HEMOGLOBIN 11.2 g/dL (13.5-17.5); MCH 30.9 pg (26.0-34.0); MCHC 33.5 g/dL (31.0-37.0); MCV 92.3 fL (80.0-100.0); MEAN PLATELET VOLUME 9.3 fL (7.4-10.4); RBC 3.62 10x6/uL (4.20-6.10); RDW 16.5 % (11.5-14.5); WBC 5.2 10x3/uL (4.8-10.8)
--- NOTE | 2018-10-05 08:50 | NUR ---
PT RESTING IN BED WITH EYES OPEN CALL LIGHT IN REACH NO PROBLEMS WILL MONITER
[2018-10-05 09:12] VITALS: BP 143/91
[2018-10-05 14:08] VITALS: BP 147/95
--- NOTE | 2018-10-05 16:08 | MORECARE ---
CASE MANAGEMENT DISCHARGE SUMMARY PATIENT: OMAR PETERSON UNIT: [id number] ADM DATE: 10/04/18 AGE: 62 : 57 SEX: M ROOM/BED: D.2233 AUTHOR: RAMYA VELAZQUEZ PHYSICIAN: REFERRING PHYSICIAN: ROSA FARIAS MD DATE OF SERVICE: 10/05/18 Discharge Plan Patient Name: OMAR PETERSON Facility: [facility]:[place] : 1955 Planned Disposition: Home Anticipated Discharge Date: 10/06/18 Discharge Date: Expected LOS: 2 Initial Reviewer: [email or web address] Initial Review Date: 10/05/2018 Generated: 10/05/18 5:08 pm Patient Name: OMAR PETERSON Page 55165 at 1608 All edits/amendments must be made on the electronic document DICTATION DATE: 10/05/181606 TAPPER HAND: RAYMOND 10/05/181606 RPT#: [id number] DC DATE: STATUS: ADM IN [facility] [address] [place] [address] END OF REPORT
--- NOTE | 2018-10-05 16:17 | MORECARE ---
CASE MANAGEMENT DISCHARGE SUMMARY PATIENT: OMAR PETERSON UNIT: [id number] ADM DATE: 10/04/18 AGE: 62 : 57 SEX: M ROOM/BED: D.2233 AUTHOR: CAROLINE,DOC PHYSICIAN: REFERRING PHYSICIAN: ROSA FARIAS MD DATE OF SERVICE: 10/05/18 Discharge Plan Patient Name: OMAR PETERSON Facility: [facility]:[place] : 1955 Planned Disposition: Home Anticipated Discharge Date: 10/06/18 Discharge Date: Expected LOS: 2 Initial Reviewer: [email or web address] Initial Review Date: 10/05/2018 Generated: 10/05/18 5:16 pm Comments DCP- Discharge Planning Updated by [email or web address]: Kate Pringle on 10/05/18 3:[address] Patient Name: OMAR PETERSON Admission Status: Elective Accout number: [id number] Admission Date: 10-04-2018 : 1955 Admission Diagnosis: Attending: ROSA FARIAS Current LOS: 1 Anticipated DC Date: 10-06-2018 Planned Disposition: Home Primary Insurance: MEDICAID [place] Discharge Planning Comments: CM met with patient to complete initial dc planning assessment. CM educated patient on the CM role and verbal consent given by patient to complete assessment. Patient lives at home alone. At discharge patient plans to return and feels this is a safe discharge. CM discussed availability of home health, rehab services, and medical equipment. Patient denied known discharge needs at this time. States "I have everything I need." States he takes the [employer] bus to his appointments. States he will have a ride tomorrow however from "[place]". He would like to have outpatient PT at [facility]. CM will continue to follow and will assist as needed with dc plans/needs. Merchandise Flow Manager: Kate Pringle DCPIA - Discharge Planning Initial Assessment Updated by [email or web address]: Kate Pringle on 10/05/18 4:10 pm * Is the patient Alert and Oriented? Yes * How many steps to enter\\exit or inside your home? 3/0 * PCP Dr. Montero in [place] * Pharmacy [facility] * Preadmission Environment Home Alone * ADLs Partial Dependent * Partial ADLs (Assistance needed) Ambulation * Equipment Bedside Commode Walker * List name and contact numbers for known caregivers / representatives who currently or will assist patient after discharge: "None" per patient * Community resources currently utilized None * Additional services required to return to the preadmission environment? Yes * Can the patient safely return to the preadmission environment? Yes * Has this patient been hospitalized within the prior 30 days at any hospital? No Last DP export: 10/05/18 3:08 pm Patient Name: OMAR PETERSON Page 27188 at 1617 All edits/amendments must be made on the electronic document DICTATION DATE: 10/05/181615 MUNITIONS FACTORY WORKER: RAYMOND 10/05/181615 RPT#: [id number] DC DATE: STATUS: ADM IN [facility] [address] [place] [address] END OF REPORT
--- NOTE | 2018-10-05 16:40 | NUR ---
PT RESTING IN BED WITH EYES OPEN CALL LIGHT IN REACH NO PROBLEMS WILL MONITER
--- NOTE | 2018-10-05 16:43 | MORECARE ---
CASE MANAGEMENT DISCHARGE SUMMARY PATIENT: OMAR PETERSON UNIT: [id number] ADM DATE: 10/04/18 AGE: 62 : 57 SEX: M ROOM/BED: D.2233 AUTHOR: CAROLINE,DOC PHYSICIAN: REFERRING PHYSICIAN: ROSA FARIAS MD DATE OF SERVICE: 10/05/18 Discharge Plan Patient Name: OMAR PETERSON Facility: [facility]:[place] : 1955 Planned Disposition: Home Anticipated Discharge Date: 10/06/18 Discharge Date: Expected LOS: 2 Initial Reviewer: [email or web address] Initial Review Date: 10/05/2018 Generated: 10/05/18 5:43 pm Comments DCP- Discharge Planning Updated by [email or web address]: Kate Pringle on 10/05/18 3:[address] Patient Name: OMAR PETERSON Admission Status: Elective Accout number: [id number] Admission Date: 10-04-2018 : 1955 Admission Diagnosis: Attending: ROSA FARIAS Current LOS: 1 Anticipated DC Date: 10-06-2018 Planned Disposition: Home Primary Insurance: MEDICAID [place] Discharge Planning Comments: CM met with patient to complete initial dc planning assessment. CM educated patient on the CM role and verbal consent given by patient to complete assessment. Patient lives at home alone. At discharge patient plans to return and feels this is a safe discharge. CM discussed availability of home health, rehab services, and medical equipment. Patient denied known discharge needs at this time. States "I have everything I need." States he takes the [employer] bus to his appointments. States he will have a ride tomorrow however from "[place]". He would like to have outpatient PT at [facility]. CM will continue to follow and will assist as needed with dc plans/needs. Maintenance Analyst: Kate Pringle DCPIA - Discharge Planning Initial Assessment Updated by [email or web address]: Kate Pringle on 10/05/18 4:10 pm * Is the patient Alert and Oriented? Yes * How many steps to enter\\exit or inside your home? 3/0 * PCP Dr. Montero in [place] * Pharmacy [facility] * Preadmission Environment Home Alone * ADLs Partial Dependent * Partial ADLs (Assistance needed) Ambulation * Equipment Bedside Commode Walker * List name and contact numbers for known caregivers / representatives who currently or will assist patient after discharge: "None" per patient * Community resources currently utilized None * Additional services required to return to the preadmission environment? Yes * Can the patient safely return to the preadmission environment? Yes * Has this patient been hospitalized within the prior 30 days at any hospital? No External Providers External Provider: [facility] Contact Date: Service Request Date: Service Type: Resolution: Reviewer: Comments: Last DP export: 10/05/18 3:17 pm Patient Name: OMAR PETERSON Page 93573 at 1643 All edits/amendments must be made on the electronic document DICTATION DATE: 10/05/181641 BOILER ERECTOR: RAYMOND 10/05/181641 RPT#: [id number] DC DATE: STATUS: ADM IN [facility] [address] [place] [address] END OF REPORT
--- NOTE | 2018-10-05 16:55 | MORECARE ---
CASE MANAGEMENT DISCHARGE SUMMARY PATIENT: OMAR PETERSON UNIT: [id number] ADM DATE: 10/04/18 AGE: 62 : 57 SEX: M ROOM/BED: D.2233 AUTHOR: CAROLINE,DOC PHYSICIAN: REFERRING PHYSICIAN: ROSA FARIAS MD DATE OF SERVICE: 10/05/18 Discharge Plan Patient Name: OMAR PETERSON Facility: [facility]:[place] : 1955 Planned Disposition: Home Anticipated Discharge Date: 10/06/18 Discharge Date: Expected LOS: 2 Initial Reviewer: [email or web address] Initial Review Date: 10/05/2018 Generated: 10/05/18 5:55 pm Comments DCP- Discharge Planning Updated by [email or web address]: Kate Pringle on 10/05/18 3:[address] Called [facility] PT department and scheduled OP PT to begin ThursdayOctober 11 at 2:00 PM. Medicaid will only pay for twice a week therapy. Faxed clinical to [phone]. CM will continue to follow and assist with discharge planning/needs. DCP- Discharge Planning Updated by [email or web address]: Kate Pringle on 10/05/18 3:[address] Patient Name: OMAR PETERSON Admission Status: Elective Accout number: [id number] Admission Date: 10-04-2018 : 1955 Admission Diagnosis: Attending: ROSA FARIAS Current LOS: 1 Anticipated DC Date: 10-06-2018 Planned Disposition: Home Primary Insurance: MEDICAID [place] Discharge Planning Comments: CM met with patient to complete initial dc planning assessment. CM educated patient on the CM role and verbal consent given by patient to complete assessment. Patient lives at home alone. At discharge patient plans to return and feels this is a safe discharge. CM discussed availability of home health, rehab services, and medical equipment. Patient denied known discharge needs at this time. States "I have everything I need." States he takes the [employer] bus to his appointments. States he will have a ride tomorrow however from "[place]". He would like to have outpatient PT at [facility] in [place]. CM will continue to follow and will assist as needed with dc plans/needs. Option Trader: Kate Pringle DCPIA - Discharge Planning Initial Assessment Updated by [email or web address]: Kate Pringle on 10/05/18 4:10 pm * Is the patient Alert and Oriented? Yes * How many steps to enter\\exit or inside your home? 3/0 * PCP Dr. Montero in [place] * Pharmacy [facility] * Preadmission Environment Home Alone * ADLs Partial Dependent * Partial ADLs (Assistance needed) Ambulation * Equipment Bedside Commode Walker * List name and contact numbers for known caregivers / representatives who currently or will assist patient after discharge: "None" per patient * Community resources currently utilized None * Additional services required to return to the preadmission environment? Yes * Can the patient safely return to the preadmission environment? Yes * Has this patient been hospitalized within the prior 30 days at any hospital? No Last DP export: 10/05/18 3:43 pm Patient Name: OMAR PETERSON Page 33969 at 1655 All edits/amendments must be made on the electronic document DICTATION DATE: 10/05/181654 LABOR RELATIONS MANAGER: RAYMOND 10/05/181654 RPT#: [id number] DC DATE: STATUS: ADM IN [facility] [address] [place] [address] END OF REPORT
--- NOTE | 2018-10-05 18:08 | NUR ---
PT RESTING IN BED WITH EYES OPEN CALL LIGHT IN REACH NO PROBLEMS WILL MONITER
[2018-10-05 18:36] VITALS: BP 139/89
--- NOTE | 2018-10-05 19:36 | NUR ---
I have reviewed this patient and I concur with the Shift Assessment completed by the Licensed Practical Nurse today this shift.
--- NOTE | 2018-10-05 19:40 | NUR ---
SITTING UP ON SIDE OF BED. ALERT AND ORIENTED X4. RESP EVEN AND NONLABORED. BBS CTA. ABD SOFT, NONTENDER. BS PRESENT X4 QUADS. DRSG NOTED TO LT KNEE WITH HALI WRAP. PEDAL PULSES WNL. NO EDEMA NOTED. MEDICATED WITH PERCOCET FOR C/O KNEE PAIN. SALINE LOCK NOTED TO LT WRIST. AMB WITH WALKER. SR ELEVATED X2. CL IN REACH.
[2018-10-05 21:21] VITALS: BP 139/85
--- NOTE | 2018-10-05 23:47 | NUR ---
MEDICATED WITH PERCOCET FOR C/O PAIN IN LT KNEE RATING 8. CL IN REACH.
--- NOTE | 2018-10-06 04:05 | NUR ---
MEDICATED WITH PERCOCET FOR C/O PAIN IN LT KNEE RATING 8. CL IN REACH.
[2018-10-06 04:39] VITALS: BP 142/82
[2018-10-06 07:37] LABS: HEMATOCRIT 33.2 % (42.0-54.0); HEMOGLOBIN 11.2 g/dL (13.5-17.5); MCH 30.9 pg (26.0-34.0); MCHC 33.7 g/dL (31.0-37.0); MCV 91.7 fL (80.0-100.0); RBC 3.62 10x6/uL (4.20-6.10); RDW 16.5 % (11.5-14.5); WBC 5.6 10x3/uL (4.8-10.8)
--- NOTE | 2018-10-06 08:00 | NUR ---
MORNING ASSESSMENT COMPLETE. SEE ASSESSMENT FLOWSHEET FOR FURTHER DETAILS. PT UP AD [facility]. DENIES NEEDS AT THIS TIME. WILL BRING MORNING MEDS. D/C HOME TODAY
[2018-10-06] MEDS ORDERED: ELIQUIS2.5 MG PO (08:48)
[2018-10-06] MEDS ORDERED: HYDROCODON-ACE1 EA10 PO (08:50)
[2018-10-06] MEDS ORDERED: DILAUDID2 MG PO (08:50)
[2018-10-06 09:35] VITALS: BP 118/80
--- NOTE | 2018-10-06 10:45 | NUR ---
WENT OVER ALL D/C INSTRUCTIONS. PT STATES UNDERSTANDING. LEFT WITH ALL PERSONAL BELONGINGS.
== END 2018-10-06 11:37 | disposition home or self-care (01) | DRG 489 ==
LOC: D.SDCHOLD 09-29 10:00 → D.MS 10-04 05:00 → D.SDCHOLD 10-04 05:00 → D.MS 10-04 09:44 → D.SDCHOLD 10-04 10:00 → D.MS 10-06 11:37
PROVIDERS: ADMIT Orthopaedic Surgery; ATTEND Orthopaedic Surgery
PROC: 0QRF0JZ Replacement of Left Patella with Synthetic Substitute, Open Approach (ICD-10-PCS; principal; 2018-10-04 07:30)
DX: M25.562 Pain in left knee (principal)

== ENCOUNTER 2018-10-10 19:45 | Inpatient (IN) | payer MEDICAID ==
[~2018-10-10] VITALS: Ht 190.5 cm; Wt 99.5 kg
[~2018-10-10 19:45] MED LIST changes: +DILAUDID2 MG PO; +HYDROCODON-ACE1 EA10 PO; +HYDROCODONE-IB1 EAC3 PO
[2018-10-10 21:52] LABS: BASOPHILS 0.4 % (0-2); EOSINOPHILS 2.2 % (0-7); HEMATOCRIT 27.5 % (42.0-54.0); HEMOGLOBIN 9.6 g/dL (13.5-17.5); IMMATURE GRANULOCYTES 0.2 % (0-5); LYMPHOCYTES 27.7 % (15-50); MCH 31.5 pg (26.0-34.0); MCHC 34.9 g/dL (31.0-37.0); MCV 90.2 fL (80.0-100.0); NEUTROPHILS 54.5 % (40-80); PLATELET COUNT 301 10x3/uL (130-400); RBC 3.05 10x6/uL (4.20-6.10)
[2018-10-10 22:03] LABS: ALBUMIN 3.2 g/dL (3.4-5.0); ALKALINE PHOSPHATASE 62 U/L (46-116); ALT (SGPT) 23 U/L (10-68); BILIRUBIN - TOTAL 1.12 mg/dL (0.2-1.3); C-REACTIVE PROTEIN 7.6 mg/dL (0.0-0.9); CALC OSMOLALITY 268 mosm/kg (275-300); CALCIUM 9.1 mg/dL (8.5-10.1); CARBON DIOXIDE 28.2 mmol/L (21.0-32.0); CHLORIDE - SERUM 97 mmol/L (98-107); GLUCOSE 97 mg/dL (74-106); POTASSIUM - SERUM 3.7 mmol/L (3.5-5.1); PROTEIN - SERUM 8.5 g/dL (6.4-8.2); SODIUM 135 mmol/L (136-145); UREA NITROGEN 11 mg/dL (7-18); eGFR NON AFRICAN AMERICAN 81 mL/min (90-120)
[2018-10-10 23:59] VITALS: BP 124/76
[2018-10-11] VITALS (14 sets, daily range): BP systolic 94–121; BP diastolic 58–80; Ht 190.5 cm; Wt 99.5 kg
--- NOTE | 2018-10-11 07:20 | NUR ---
PT LYING IN BED. ALERT AND ORIENTED. LEFT KNEE DRESSING. NPO UNTIL DR. JARRETT OSEGUERA'S PT. PT VERBALIZED UNDERSTANDING. ROOM AIR. RIGHT AC 22G IV SL. BED LOW. CL IN REACH.
[2018-10-11 07:36] LABS: BASOPHILS 0.8 % (0-2); EOSINOPHILS 4.7 % (0-7); HEMATOCRIT 24.6 % (42.0-54.0); HEMOGLOBIN 8.5 g/dL (13.5-17.5); IMMATURE GRANULOCYTES 0.3 % (0-5); LYMPHOCYTES 34.9 % (15-50); MCH 31.1 pg (26.0-34.0); MCHC 34.6 g/dL (31.0-37.0); MCV 90.1 fL (80.0-100.0); MEAN PLATELET VOLUME 9.1 fL (7.4-10.4); MONOCYTES 16.8 % (2-11); NEUTROPHILS 42.5 % (40-80); PLATELET COUNT 282 10x3/uL (130-400); RBC 2.73 10x6/uL (4.20-6.10); RDW 16.1 % (11.5-14.5)
[2018-10-11 07:41] LABS: WBC 3.6 10x3/uL (4.8-10.8)
[2018-10-11 07:50] LABS: CALC OSMOLALITY 279 mosm/kg (275-300); CALCIUM 8.7 mg/dL (8.5-10.1); CARBON DIOXIDE 26.6 mmol/L (21.0-32.0); CHLORIDE - SERUM 104 mmol/L (98-107); GLUCOSE 98 mg/dL (74-106); POTASSIUM - SERUM 3.8 mmol/L (3.5-5.1); SODIUM 141 mmol/L (136-145); UREA NITROGEN 10 mg/dL (7-18); eGFR NON AFRICAN AMERICAN 81 mL/min (90-120)
--- NOTE | 2018-10-11 09:05 | NUR ---
PT WANTING LINENS CHANGED. COMPLETE LINEN CHANGE DONE.
--- NOTE | 2018-10-11 09:17 | NUR ---
SURGERY CONSENTS SIGNED.
--- NOTE | 2018-10-11 13:00 | NUR ---
ALERT AND ORIENTED X4. CONSENTS FOR PROCEDURE SIGNED ON CHART. AGREE WITH ARMATURE COIL WINDER ASSESSMENT. TAKEN TO PROCEDURE VIA BED. PANFILO TOVAR CONTINUES PLAN OF CARE AND SAFETY PRECAUTIONS.
--- NOTE | 2018-10-11 13:23 | NUR ---
PT TAKEN FOR SURGERY VIA BED.
--- NOTE | 2018-10-11 14:00 | MORECARE ---
CASE MANAGEMENT DISCHARGE SUMMARY PATIENT: OMAR GUTIERREZ UNIT: [id number] ADM DATE: 10/10/18 AGE: 62 : 57 SEX: M ROOM/BED: D.1208 AUTHOR: RAMYA VELAZQUEZ PHYSICIAN: REFERRING PHYSICIAN: NELIA ARRIOLA DO DATE OF SERVICE: 10/11/18 Discharge Plan Patient Name: OMAR GUTIERREZ Facility: [facility]:[place] : 1955 Planned Disposition: Home Anticipated Discharge Date: Discharge Date: Expected LOS: Initial Reviewer: [email or web address] Initial Review Date: 10/11/2018 Generated: 10/11/18 3:00 pm DCPIA - Discharge Planning Initial Assessment Updated by [email or web address]: Basia Joyce on 10/11/18 1:57 pm * Is the patient Alert and Oriented? Yes * How many steps to enter\exit or inside your home? none * PCP DR Alexandra Gage Sees the FRONT END SPECIALIST * [facility] * Preadmission Environment Home Alone * ADLs Partial Dependent * Partial ADLs (Assistance needed) Ambulation * Equipment Bedside Commode Cane Rolling Walker * Other Equipment denies any additional dme * List name and contact numbers for known caregivers / representatives who currently or will assist patient after discharge: Omari Gutierrez- brother- [phone] Brother lives in [place] * Verbal permission to speak to the caregivers and representatives has been obtained from the patient. No * Community resources currently utilized None * Please name any agencies selected above. n/a * Additional services required to return to the preadmission environment? Yes * Can the patient safely return to the preadmission environment? Yes * Has this patient been hospitalized within the prior 30 days at any hospital? Yes Patient Name: OMAR GUTIERREZ Page [id number] at 1400 All edits/amendments must be made on the electronic document DICTATION DATE: 10/11/18 1400 LANDCARE FACILITATOR: RAYMOND 10/11/18 1400 RPT#: [id number] DC DATE: STATUS: ADM IN [place] [address] [place] [address] END OF REPORT
--- NOTE | 2018-10-11 16:20 | NUR ---
SPOKE WITH RECOVERY THEY STATED I&D BY DR. FARIAS WITH POLY EXCHANGE. A BLOCK WAS DONE BEFORE PROCEDURE AND IN RECOVERY PT RECEIVED 1MG DILAUDID. BP IS 107/75 AND 02 SAT IS 98% ON ROOM AIR. LEFT KNEE INCISION IS DRESSED AND IS C/D/I.
--- NOTE | 2018-10-11 16:35 | NUR ---
PT RETURNED FROM SX VIA BED. ALERT AND ORIENTED. VS STABLE. LEFT KNEE DRESSED AND WRAPPED C/D/I. ICE PACK ON LEFT KNEE. ROOM AIR. WILL CONTINUE TO MONITOR. BED LOW. CL IN REACH.
--- NOTE | 2018-10-11 17:35 | NUR ---
ALERT AND ORIENTED X4. LAYING IN BED. BP-104/68, HR-88, O2-98 RA, T-97.7. INITIATE PRBC TRANSFUSION. START RATE AT 75mL/HR. DELIGATE TO PANFILO TOVAR TO MONITOR TRANSFUSION. PANFILO TOVAR RESUMES PLAN OF CARE AND SAFETY PRECAUTIONS.
--- NOTE | 2018-10-11 17:50 | NUR ---
PT SHOWS NO S/S OF PRBC REACTION. ALERT AND ORIENTED. VS STABLE. INCREASED PRBC RATE FROM 75ML/HR TO 80ML/HR THROUGH RIGHT AC 22G IV. WILL CONTINUE TO MONITOR.
--- NOTE | 2018-10-11 18:24 | NUR ---
PT WANTING SOMETHING FOR COUGH. SPOKE WITH DR. BURR HE ORDERED ROBITUSSIN DM 5-10ML Q6HP.
--- NOTE | 2018-10-11 18:28 | MORECARE ---
CASE MANAGEMENT DISCHARGE SUMMARY PATIENT: OMAR GUTIERREZ UNIT: [id number] ADM DATE: 10/10/18 AGE: 62 : 57 SEX: M ROOM/BED: D.1208 AUTHOR: CAROLINE,DOC PHYSICIAN: REFERRING PHYSICIAN: NELIA ARRIOLA DO DATE OF SERVICE: 10/11/18 Discharge Plan Patient Name: OMAR GUTIERREZ Facility: [facility]:[place] : 1955 Planned Disposition: Home Anticipated Discharge Date: Discharge Date: Expected LOS: Initial Reviewer: [email or web address] Initial Review Date: 10/11/2018 Generated: 10/11/18 7:28 pm Comments DCP- Discharge Planning Updated by [email or web address]: Basia Joyce on 10/11/18 5:[address] Patient Name: OMAR GUTIERREZ Admission Status: ER Accout number: [id number] Admission Date: 10-10-2018 : 1955 Admission Diagnosis: Attending: NELIA ARRIOLA Current LOS: 1 Anticipated DC Date: Planned Disposition: Home Primary Insurance: [place]ID [place] Discharge Planning Comments: CM MET WITH PATIENT AT THE BEDSIDE TO COMPLETE INITIAL D/C PLANNING ASSESSMENT. EXPLAINED CM ROLE. HE CONSENTED TO ASSESSMENT. PATIENT LIVES AT HOME ALONE IN [place], [place]. STATES HE HAS NO STEPS TO ENTER HIS HOME. HAS A BROTHER LISTED NEXT OF KIN. THE BROTHER, SIMEON, LIVES IN [place]. PATIENT PLANS TO RETURN TO HOME. FEELS THIS IS A SAFE DISCHARGE. PATIENT HAS A CANE, WALKER AND BEDSIDE COMMODE. PATIENT DENIES ANY NEEDS FOR DME, OR HOME HEALTH SERVICES . HE WILL RECEIVE OUTPATIENT PHYSICAL THERAPY AT [facility] IN [place] AT DISCHARGE. HE WAS SCHEDULED TO START SERVICES TODAY. TC TO [facility] OUTPATIENT PT AT [phone]. ADVISED THEM HE WAS ADMITTED. CM TO CALL WHEN PATIENT IS DISCHARGED TO RESUME SERVICES. HE IS NOT RECEIVING ANY COMMUNITY SERVICES. MAYBE INTERESTED IN MOMS MEALS IF ELIGIBLE. PATIENT WILL NEED ASSISTANCE WITH TRANSPORTATION AT DISCHARGE. Metal Work Duct Installer: Basia Joyce DCPIA - Discharge Planning Initial Assessment Updated by [id number]: Basia Joyce on 10/11/18 1:57 pm * Is the patient Alert and Oriented? Yes * How many steps to enter\exit or inside your home? none * PCP DR Alexandra Gage Sees the INTERNAL WHOLESALER * [facility] * Preadmission Environment Home Alone * ADLs Partial Dependent * Partial ADLs (Assistance needed) Ambulation * Equipment Bedside Commode Cane Rolling Walker * Other Equipment denies any additional dme * List name and contact numbers for known caregivers / representatives who currently or will assist patient after discharge: Simeon Gutierrez- brother- [phone] Brother lives in [place] * Verbal permission to speak to the caregivers and representatives has been obtained from the patient. No * Community resources currently utilized None * Please name any agencies selected above. n/a * Additional services required to return to the preadmission environment? Yes * Can the patient safely return to the preadmission environment? Yes * Has this patient been hospitalized within the prior 30 days at any hospital? Yes Last DP export: 10/11/18 1:00 pm Patient Name: OMAR GUTIERREZ Page [phone] at 1828 All edits/amendments must be made on the electronic document DICTATION DATE: 10/11/181826 LOGGING EQUIPMENT OPERATOR: RAYMOND 10/11/181826 RPT#: [id number] DC DATE: STATUS: ADM IN [facility] [address] [place] [address] END OF REPORT
--- NOTE | 2018-10-11 18:33 | NUR ---
INCREASED PRBC FROM 80ML/HR TO 90 ML/HR THOUGH RIGHT AC IV.
--- NOTE | 2018-10-11 18:36 | NUR ---
INCREASED PRBC FROM 80ML/HR TO 95 ML/HR THOUGH RIGHT AC IV.
--- NOTE | 2018-10-11 18:37 | NUR ---
PT STATES HE DOES NOT NEED ANY PAIN MEDICATION RIGHT NOW.
--- NOTE | 2018-10-11 19:45 | NUR ---
PT REQ AND REC'D PRN PAIN MEDICATION AT THIS TIME. WCTM.
--- NOTE | 2018-10-11 22:44 | NUR ---
PT RESTING IN BED, WATCHING TV, DENIES NEEDS. WCTM.
--- NOTE | 2018-10-12 02:25 | NUR ---
PT REQ AND REC'D PRN PAIN MEDICATION. WCTM.
[2018-10-12 04:30] VITALS: BP 108/70
[2018-10-12 09:01] LABS: BASOPHILS 0.2 % (0-2); EOSINOPHILS 0 % (0-7); HEMATOCRIT 24.9 % (42.0-54.0); HEMOGLOBIN 8.6 g/dL (13.5-17.5); IMMATURE GRANULOCYTES 0.2 % (0-5); LYMPHOCYTES 15.7 % (15-50); MCH 31.2 pg (26.0-34.0); MCHC 34.5 g/dL (31.0-37.0); MCV 90.2 fL (80.0-100.0); MEAN PLATELET VOLUME 9.1 fL (7.4-10.4); MONOCYTES 18.5 % (2-11); NEUTROPHILS 65.4 % (40-80); PLATELET COUNT 310 10x3/uL (130-400); RBC 2.76 10x6/uL (4.20-6.10); RDW 16.4 % (11.5-14.5)
[2018-10-12 09:05] LABS: WBC 6.3 10x3/uL (4.8-10.8)
[2018-10-12 09:12] LABS: ANION GAP 11.3 mmol/L (8-16); CALCIUM 8.6 mg/dL (8.5-10.1); CARBON DIOXIDE 26.6 mmol/L (21.0-32.0); CREATININE - SERUM 1.2 mg/dL (0.6-1.3); POTASSIUM - SERUM 3.9 mmol/L (3.5-5.1)
[2018-10-12 09:23] VITALS: BP 115/75
--- NOTE | 2018-10-12 12:00 | NUR ---
ALERT AND ORIENTED X4. UP AMBULATING IN [place] ACCOMPANIED BY PHYSICAL THERAPY. LT LEG BEGINS BLEEDING. CALL BEATRIZ ORTHO COOK CHIEF. BEATRIZ ASSESSES LEG. ANNMARIE INTACT. BEATRIZ REDRESSES LT LEG. CONTINUE PLAIN MANAGEMENT. CONTINUE PLAN OF CARE AND SAFETY PRECAUTIONS.
[2018-10-12 12:30] VITALS: BP 122/66
[2018-10-12 16:15] VITALS: BP 118/66; BP 164/65
--- NOTE | 2018-10-12 17:14 | NUR ---
ALERT AND ORIENTED X4. RESTING IN BED. BLOOD STILL NOT READY. CALL LAB X2 NO ANSWER. LT KNEE DRESSING REMAINS FREE FROM BLEEDING. DENIES ANY NEEDS. PAIN MANAGEMENT CONTINUED. CONTINUE PLAN OF CARE AND SAFETY PRECAUTIONS.
--- NOTE | 2018-10-12 18:20 | NUR ---
ALERT AND ORIENTED X4. SITTING UP IN BED. INITIATE PRBC TRANSFUSION. TRANSFUSION RATE START AT 75mL/HR FOR FIRST 15 MINUTES TO MONITOR FOR REACTION. BP-126/83, T-97.6, R-16, HR-86, O2-98% RA. REMAIN IN ROOM FOR FIRST 15 MINUTES.
--- NOTE | 2018-10-12 18:35 | NUR ---
ALERT AND ORIENTED X4. BP-114/75, T-97.7, R-16, O2-97% RA, HR-77. NO SIGNS OF ADVERSE REACTION. PRBC TRANSFUSION RATE INCREASED TO 100mL/HR. DENIES ANY NEEDS. CONTINUE PLAN OF CARE AND SAFETY PRECAUTIONS.
--- NOTE | 2018-10-12 19:18 | NUR ---
AM ROUNDS- PT IN BED TALKING ON THE PHONE, A/O X4, RESP EVEN AND NONLABORED ON RA. LT AC INFUSING BLOOD AT 100CC/HR. PT DENIES ANY NEEDS AT THIS TIME. CALL LIGHT IN REACH, NAD NOTED,WILL CONTINUE PLAN OF CARE.
[2018-10-12 20:00] VITALS: BP 117/73
--- NOTE | 2018-10-12 20:18 | NUR ---
ELIQUIS GIVEN ORDRED, PT UP TO SIDE OF BED, DENIES ANY NEEDS AT THIS TIME. CALL LIGHT IN REACH, NAD NOTED, WILL CONTINUE TO MONITOR.
--- NOTE | 2018-10-12 21:50 | NUR ---
PERCOCET GIVEN FOR PAIN LEVEL OF 7/10. ALSO CHANGED PT'S BED LINEN AT THIS TIME. PT UP TO CHAIR, UNIT OF PRBCS FINISHED INFUSING AT THIS TIME. LINE BEING FLUSHED WITH NS. PT DENIES ANY OTHER NEEDS AT THIS TIME. CALL LIGHT IN REACH, NAD NOTED,W ILL CONTINUE TO MONITOR.
[2018-10-12 23:57] VITALS: BP 112/72
--- NOTE | 2018-10-13 00:55 | NUR ---
CALLED DR. RUBI AND INFORMED HIM THAT PT IS HAVING A LOT OF PAIN TO LT KNEE, POST DAY ONE I/D. PT CURRENTLY GETTING PERCOCET FOR PAIN BUT IT IS NOT DOING ANYTHING FOR HIM RIGHT NOW, PT IN TEARS C/O PAIN TO UPPER AREA ABOVE KNEE. INFORMED DOCTOR THAT PT WAS RECEIVING DILAUDID EARLIER TODAY BUT WAS D/C. DR. RUBI STATED TO START DILAUDID BACK. 0104- 1MG OF DILAUDID GIVEN FOR PAIN LEVEL OF 10/10. PT UP TO CHAIR IN TEARS. DENIES ANY OTHER NEEDS AT THIS TIME. CALL LIGHT IN REACH, NAD NOTED, WILL CONTINUE TO MONITOR.
--- NOTE | 2018-10-13 02:53 | NUR ---
GAVE PERCOCET FOR PAIN LEVEL OF 8/10. PT UP TO SIDE OF BED, DENIES ANY OTHER NEEDS AT THIS TIME. CALL LIGHT IN REACH, NAD NOTED, WILL CONTINUE TO MONITOR.
--- NOTE | 2018-10-13 04:27 | NUR ---
PT WALKING IN HALLWAY, LT KNEE STARTED BLEEDING FROM INCISION. HELPED PT BACK TO ROOM AND APPLIED PRESSURE DRESSING TO LT KNEE AND COVERED WITH HALI BANDAGE.
[2018-10-13 04:30] VITALS: BP 126/77
--- NOTE | 2018-10-13 06:11 | NUR ---
GAVE 1MG OF DILAUDID FOR PAIN LEVEL OF 10/10. PT UP SIDE OF BED, DENIES ANY OTHER NEEDS AT THIS TIME. CALL LIGHT IN REACH, NAD NOTED.
--- NOTE | 2018-10-13 07:30 | NUR ---
REC'D IN BED AWAKE AND ALERT. RESP EVEN AND UNLABORED WITH NO DISTRESS NOTED. CAN EXPRESS NEEDS AND WANTS. ASSESSMENT COMPLETED. C/L IN REACH AT BEDSIDE.
[2018-10-13 08:10] LABS: CALC OSMOLALITY 275 mosm/kg (275-300); CALCIUM 8.8 mg/dL (8.5-10.1); CARBON DIOXIDE 27.1 mmol/L (21.0-32.0); CHLORIDE - SERUM 101 mmol/L (98-107); CREATININE - SERUM 0.9 mg/dL (0.6-1.3); GLUCOSE 97 mg/dL (74-106); SODIUM 138 mmol/L (136-145); UREA NITROGEN 13 mg/dL (7-18); eGFR NON AFRICAN AMERICAN > 90 mL/min (90-120)
[2018-10-13 08:11] LABS: HEMATOCRIT 28.5 % (42.0-54.0); HEMOGLOBIN 9.7 g/dL (13.5-17.5); MCH 30.7 pg (26.0-34.0); MCV 90.2 fL (80.0-100.0); MEAN PLATELET VOLUME 9.2 fL (7.4-10.4); RBC 3.16 10x6/uL (4.20-6.10); WBC 7.2 10x3/uL (4.8-10.8)
--- NOTE | 2018-10-13 08:44 | NUR ---
MEDICATED WITH OXY PER ORDERS FOR C/O PAIN TO LEFT KNEE. C/L IN REACH AT BEDSIDE.
[2018-10-13 09:12] VITALS: BP 119/83
[2018-10-13 12:53] VITALS: BP 124/80
--- NOTE | 2018-10-13 13:06 | NUR ---
Nutrition Follow Up: Reviewed chart Diet advanced to regular and pt is eating 75-100% of meals Discussed the importance of nutrition for healing Will add Tavo BID RD following
--- NOTE | 2018-10-13 17:46 | NUR ---
C/O LEFT KNEE PAIN MEDICATED WITH OXY AT THIS TIME. C/L IN REACH AT BEDSIDE.
[2018-10-13 18:22] VITALS: BP 120/78
--- NOTE | 2018-10-13 18:49 | NUR ---
I AGREE WITH THE TOMBSTONE ERECTOR HELPER CHARTING
[2018-10-13 20:00] VITALS: BP 93/65
--- NOTE | 2018-10-13 20:00 | NUR ---
PT SITTING UP IN WHEELCHAIR. CALL LIGHT IN REACH. PT DENIES NEEDS OR PAIN AT THIS TIME. PT REQUEST TO GET UP AND WALK AROUND. RESP EVEN AND UNLABORED. DRESSING TO LEFT KNEE C/D/I. BOWEL ACTIVE X4. LUNGS CLEAR. PULSES REGULAR. TAKES MEDS WHOLE. WILL CONTINUE TO MONITOR.
[2018-10-14] VITALS: BP 107/75
--- NOTE | 2018-10-14 04:12 | NUR ---
PT LYING IN BED. CALL LIGHT IN REACH. NO SIGNS OF DISTRESS OR PAIN. WCTM
[2018-10-14 05:00] VITALS: BP 104/59
[2018-10-14 07:09] LABS: HEMATOCRIT 27.3 % (42.0-54.0); HEMOGLOBIN 9.5 g/dL (13.5-17.5); MCH 30.6 pg (26.0-34.0); MCHC 34.8 g/dL (31.0-37.0); MEAN PLATELET VOLUME 8.7 fL (7.4-10.4); PLATELET COUNT 410 10x3/uL (130-400); RDW 16.2 % (11.5-14.5); WBC 6.3 10x3/uL (4.8-10.8)
[2018-10-14 07:21] LABS: CALC OSMOLALITY 271 mosm/kg (275-300); CALCIUM 8.7 mg/dL (8.5-10.1); CARBON DIOXIDE 28.5 mmol/L (21.0-32.0); CHLORIDE - SERUM 101 mmol/L (98-107); CREATININE - SERUM 0.9 mg/dL (0.6-1.3); GLUCOSE 87 mg/dL (74-106); SODIUM 137 mmol/L (136-145); UREA NITROGEN 10 mg/dL (7-18); eGFR NON AFRICAN AMERICAN > 90 mL/min (90-120)
[2018-10-14 07:22] LABS: MCV 88.1 fL (80.0-100.0)
[2018-10-14 08:00] VITALS: BP 110/63
[2018-10-14 08:44] LABS: ERYTHROCYTE SEDIMENTATION RATE 75 mm/hr (0-20)
--- NOTE | 2018-10-14 11:12 | NUR ---
PATIENT RESTING COMFORTABLY. WHEN ASKED, STATES LAST BM WAS 3 DAYS AGO AND WOULD LIKE SOMETHING TO HELP.
[2018-10-14 14:16] VITALS: BP 106/68
[2018-10-14 16:00] VITALS: BP 98/62
--- NOTE | 2018-10-14 20:00 | NUR ---
PT SITTING UP IN BED. CALL LIGHT IN REACH. BED IN LOW. SIDE RAILS X2. RESP EVEN AND UNLABORED. PT DENIES NEEDS AT THIS TIME. PAIN PILL GIVEN NOT LONG AGO. PT STILL STATES KNEE IS HURTING. DRESSING C.D.I. LUNGS CLEAR. BOWEL SOUND ACTIVE X4. A/O X4. TAKES MEDS WHOLE. WALKS AROUND UNIT WITH CANE. WILL CONTINUE TO MONITOR.
[2018-10-14 20:48] VITALS: BP 96/59
[2018-10-15 00:41] VITALS: BP 104/72
--- NOTE | 2018-10-15 02:45 | NUR ---
PT WENT FOR WALK AROUND UNIT. BACK IN ROOM. DENIES NEEDS AT THIS TIME. CALL LIGHT IN REACH. TM
[2018-10-15 06:16] VITALS: BP 99/73
--- NOTE | 2018-10-15 07:00 | NUR ---
INITIAL ROUNDING ON PATIENT, BEDSIDE SHIFT REPORT. PATIENT AWAKE AND REPORTING "MIN PAIN", DENIES ANY NEEDS AT THIS TIME.
[2018-10-15 07:02] LABS: HEMATOCRIT 26.1 % (42.0-54.0); HEMOGLOBIN 9.3 g/dL (13.5-17.5); MCH 32.4 pg (26.0-34.0); MCHC 35.6 g/dL (31.0-37.0); MEAN PLATELET VOLUME 8.1 fL (7.4-10.4); RBC 2.87 10x6/uL (4.20-6.10); RDW 16.9 % (11.5-14.5); WBC 5.3 10x3/uL (4.8-10.8)
[2018-10-15 07:05] LABS: MCV 90.9 fL (80.0-100.0)
[2018-10-15 07:06] LABS: CALCIUM 8.9 mg/dL (8.5-10.1); CARBON DIOXIDE 27.5 mmol/L (21.0-32.0); CHLORIDE - SERUM 100 mmol/L (98-107); CREATININE - SERUM 0.9 mg/dL (0.6-1.3); GLUCOSE 91 mg/dL (74-106); SODIUM 135 mmol/L (136-145); eGFR NON AFRICAN AMERICAN > 90 mL/min (90-120)
[2018-10-15 07:12] LABS: CALC OSMOLALITY 270 mosm/kg (275-300); UREA NITROGEN 14 mg/dL (7-18)
[2018-10-15 08:04] VITALS: BP 94/69
[2018-10-15 12:00] VITALS: BP 142/56
[2018-10-15] MEDS ORDERED: PERCOCET 10-321 EAC1 PO (13:15)
--- NOTE | 2018-10-15 13:15 | NUR ---
INCISION TO THE LEFT KNEE, CLEANED AND DRESSING CHANGE DONE AT THIS TIME
[2018-10-15] MEDS ORDERED: DOXYCYCLINE HY100 M2 PO (13:16)
--- NOTE | 2018-10-18 09:25 | MORECARE ---
CASE MANAGEMENT DISCHARGE SUMMARY PATIENT: OMAR GUTIERREZ UNIT: [id number] ADM DATE: 10/10/18 AGE: 62 : 57 SEX: M ROOM/BED: D.1208 AUTHOR: CAROLINE,DOC PHYSICIAN: REFERRING PHYSICIAN: NELIA ARRIOLA DO DATE OF SERVICE: 10/18/18 Discharge Plan Patient Name: OMAR GUTIERREZ Facility: [facility]:[place] : 1955 Planned Disposition: Home Anticipated Discharge Date: Discharge Date: 10/15/2018 Expected LOS: Initial Reviewer: [id number] Initial Review Date: 10/11/2018 Generated: 10/18/18 10:25 am DCP- Discharge Planning Updated by [email or web address]: Basia Joyce on 10/11/18 5:[address] Patient Name: OMAR GUTIERREZ Admission Status: ER Accout number: [id number] Admission Date: 10-10-2018 : 1955 Admission Diagnosis: Attending: NELIA ARRIOLA Current LOS: 1 Anticipated DC Date: Planned Disposition: Home Primary Insurance: MEDICAID [place] Discharge Planning Comments: CM MET WITH PATIENT AT THE BEDSIDE TO COMPLETE INITIAL D/C PLANNING ASSESSMENT. EXPLAINED CM ROLE. HE CONSENTED TO ASSESSMENT. PATIENT LIVES AT HOME ALONE IN [place], [place]. STATES HE HAS NO STEPS TO ENTER HIS HOME. HAS A BROTHER LISTED NEXT OF KIN. THE BROTHER, SIMEON, LIVES IN [place]. PATIENT PLANS TO RETURN TO HOME. FEELS THIS IS A SAFE DISCHARGE. PATIENT HAS A CANE, WALKER AND BEDSIDE COMMODE. PATIENT DENIES ANY NEEDS FOR DME, OR HOME HEALTH SERVICES . HE WILL RECEIVE OUTPATIENT PHYSICAL THERAPY AT [facility] IN [place] AT DISCHARGE. HE WAS SCHEDULED TO START SERVICES TODAY. TC TO [facility] OUTPATIENT PT AT [phone]. ADVISED THEM HE WAS ADMITTED. CM TO CALL WHEN PATIENT IS DISCHARGED TO RESUME SERVICES. HE IS NOT RECEIVING ANY COMMUNITY SERVICES. MAYBE INTERESTED IN MOMS MEALS IF ELIGIBLE. PATIENT WILL NEED ASSISTANCE WITH TRANSPORTATION AT DISCHARGE. Engine Repairer Production: Basia Joyce DCPIA - Discharge Planning Initial Assessment Updated by [email or web address]: Basia Joyce on 10/11/18 1:57 pm * Is the patient Alert and Oriented? Yes * How many steps to enter\exit or inside your home? none * PCP DR Alexandra Gage Sees the SALES AND SUPPORT CENTER AGENT * Pharmacy [facility] * Preadmission Environment Home Alone * ADLs Partial Dependent * Partial ADLs (Assistance needed) Ambulation * Equipment Bedside Commode Cane Rolling Walker * Other Equipment denies any additional dme * List name and contact numbers for known caregivers / representatives who currently or will assist patient after discharge: Simeon Gutierrez- brother- [phone] Brother lives in [place] * Verbal permission to speak to the caregivers and representatives has been obtained from the patient. No * Community resources currently utilized None * Please name any agencies selected above. n/a * Additional services required to return to the preadmission environment? Yes * Can the patient safely return to the preadmission environment? Yes * Has this patient been hospitalized within the prior 30 days at any hospital? Yes Last DP export: 10/11/18 5:28 pm Patient Name: OMAR GUTIERREZ Page [id number] at 0925 All edits/amendments must be made on the electronic document DICTATION DATE: 10/18/18924 WAFER FAB OPERATOR: RAYMOND 10/18/18924 RPT#: [id number] DC DATE:10/15/18 STATUS: DIS IN [facility] [address] [place] [address] END OF REPORT
== END 2018-10-15 18:17 | disposition home or self-care (01) | DRG 487 ==
LOC: D.ER 19:45 → D.M3 23:52
PROVIDERS: Family Medicine; Orthopaedic Surgery; ADMIT Orthopaedic Surgery; ATTEND Orthopaedic Surgery
PROC: 0J9P3ZZ Drainage of Left Lower Leg Subcutaneous Tissue and Fascia, Percutaneous Approach (ICD-10-PCS; 2018-10-11)
PROC: 0SPD09Z Removal of Liner from Left Knee Joint, Open Approach (ICD-10-PCS; principal; 2018-10-11 16:30)
PROC: 0SUW09Z Supplement Left Knee Joint, Tibial Surface with Liner, Open Approach (ICD-10-PCS; 2018-10-11 16:30)
DX: T84.54XA Infection and inflammatory reaction due to internal left knee prosthesis, initial encounter (principal); Y83.9 Surgical procedure, unspecified as the cause of abnormal reaction of the patient, or of later complication, without mention of misadventure at the time of the procedure; Z72.0 Tobacco use

== ENCOUNTER 2018-10-24 23:19 | Inpatient (IN) | payer MEDICAID ==
--- NOTE | ~2018-10-24 | HEMODYNAMI ---
PATIENT:OMAR PETERSON MEDICAL RECORD: [id number] : 57 LOCATION:D.MS [address]2205 ADMISSION DATE: 10/24/18 Generatedon:10/26/201815:25 Patient name: OMAR PETERSON Patient #: [id number] SSN: D OB: 1955 Date of study: 10/26/2018 Page: Of Hemodynamic Procedure Report Patient Data Patient Demographics Procedure consent was obtained First Name: OMAR Gender: Male Last Name: NICHOLAS : 1955 [facility] Initial: JANA Age: 62 year(s) Patient #: [id number] Race: Black Additional ID: [id number] Contact details Address: [address] [place] [address] State: [place] City: [place] Zip code: [address] Past Medical History Allergies Allergen Reaction Date Comments Reported Other 10/26/2018 sulfa, allergy morphine,phenobarbitiol/dialantin Admission Admission Data Admission Date: 10/24/2018 Admission Time: 23:43 Room #: D.2205 Procedure Procedure Types Cath Procedure Peripheral Cath Diagnostic Procedure Miscellaneous Aspiration/Injection (Joint) Procedure Description Procedure Date Procedure Date: 10/26/2018 Procedure Start Time: 14:42 Procedure End Time: 15:24 Procedure Staff Name Function Jin Farooq MD Performing Physician Marlin Salcedo RT Monitor Benito Rosales RT Scrub ANGIE ZAMBRANO RT Scrub Stephanie Jones RN Nurse Rika Medrano RN Nurse Procedure Data Cath Procedure Fluoroscopy Diagnostic fluoroscopy Total fluoroscopy Time: 1.9 time: 1.9 min min Diagnostic fluoroscopy Total fluoroscopy dose: 9 dose: 9 mGy mGy Contrast Material Contrast Material Type Amount (ml) Isovue 300 5 Hemodynamics Rest Pre Cath Intra NCS Post Cath Procedure Log Time Note 14:27:10 Benito Rosales RT (R) (CV) sent for patient. Start room use. 14:27:14 Time tracking: Regular hours (M-F 7:00 - 5:00) 14:27:40 Patient received from Med/Surg to IR Alert and oriented. Tansferred to table in Supine position. 14:27:43 Warm blankets applied for patient comfort. ::08 Correct patient and procedure confirmed by team. 14::12 Signed procedure consent form obtained from patient. 14::16 Full Disclosure recording started 14:28:17 - 14:29:36 Patient allergic to Other allergysulfa, morphine,phenobarbitiol/dialantin 14:29:58 Sharps counted by scrub and verified. 14:30:08 SAFE-T PLUS MYELOGRAM TRAY opened to sterile field. 14:36:43 Physician arrived 14:36:43 --------ALL STOP TIME OUT------ 14:36:48 Final Timeout: patient, procedure, and site verified with staff and physician. All members of the team are in agreement. 14:37:00 Left knee site verified by team. 14:37:24 Sedation plan: None Medication:Lidocaine 14:37:39 Procedure started. 14:42:16 Local anesthetic to left knee with Lidocaine 1% by Jin Farooq MD.INITIAL ACCESS ONLY 14:50:15 The aspiration needle is inserted. 14:58:00 5 cc of contast{ isovue 300} is injected at aspiration site on left knee. 15:12:25 Big ultrasound brought in to better visualize left knee. 15:13:30 Local anesthetic to left knee with Lidocaine 1% by Jin Farooq MD.ADDITIONAL ACCESS 15:19:36 40 cc of fluid aspirated from left knee. 15:20:10 Everything is removed from Left knee. 15:20:14 Procedure ended.(Physican Out) 15:21:23 Fluoroscopy time 01.90 minutes. 15:21:35 Fluoroscopy dose: 9 mGy 15:21:35 Flurop Dose total: 9 15:21:42 Contrast amount:Isovue 300 5ml. 15:21:45 Sharps counted by scrub and verified . 15:22:14 Post-op/insertion site Left knee dressed using a 4 x 4 and Tegaderm. 15:22:55 Post Left Knee:stable 15:23:06 Post procedure instruction explained to patient.Patient verbalizes understanding. 15:23:07 Patient needs reinforcement of post procedure teaching. 15:23:10 Procedure and supply charges have been captured, reviewed, submitted an d are correct. 15:24:19 See physician's report for complete and final results. 15:24:23 Report given to Med/Surg. 15:24:29 Patient transfered to Med/Surg with Wheelchair. 15:24:32 Procedure ended. 15:24:32 Full Disclosure recording stopped Device Usage Item Name Manufacture Quantity Catalog Hospital Part Current Minimal Lot# / Number Charge Number Stock Stock Serial# Code SAFE-T [employer] 1 [facility]4A [id number] PLUS MYELOGRAM TRAY Signature Audit [place] Stage Time Signature Unsigned Intra-Procedure 10/26/2018 Marlin 3:25:00 PM Denisse SEVILLA(R) (CV) Signatures Monitor : Marlin Signature : Denisse SEVILLA Date : Time : [place] [id number] [place] [address]
[~2018-10-24 23:19] MED LIST changes: +DOXYCYCLINE HY100 M2 PO; +PERCOCET 10-321 EAC1 PO
[2018-10-24 23:41] LABS: HEMATOCRIT 32.4 % (42.0-54.0); HEMOGLOBIN 11.2 g/dL (13.5-17.5); MCH 31.7 pg (26.0-34.0); MCHC 34.6 g/dL (31.0-37.0); MCV 91.8 fL (80.0-100.0); MEAN PLATELET VOLUME 8.1 fL (7.4-10.4); NEUTROPHILS 57.4 % (40-80); PLATELET COUNT 367 10x3/uL (130-400); RBC 3.53 10x6/uL (4.20-6.10); RDW 16.5 % (11.5-14.5)
[2018-10-25] VITALS (7 sets, daily range): BP systolic 106–132; BP diastolic 64–96; BMI 26.3
--- NOTE | 2018-10-25 00:12 | NUR ---
LAB AT PT BEDSIDE DRAWING BLOOD CULTURES.
[2018-10-25 00:15] LABS: ALBUMIN 3.6 g/dL (3.4-5.0); ALKALINE PHOSPHATASE 86 U/L (46-116); ALT (SGPT) 19 U/L (10-68); BILIRUBIN - TOTAL 0.27 mg/dL (0.2-1.3); CALC OSMOLALITY 270 mosm/kg (275-300); CALCIUM 9.8 mg/dL (8.5-10.1); CHLORIDE - SERUM 101 mmol/L (98-107); CREATININE - SERUM 1.3 mg/dL (0.6-1.3); GLUCOSE 97 mg/dL (74-106); POTASSIUM - SERUM 4.9 mmol/L (3.5-5.1); SODIUM 134 mmol/L (136-145); UREA NITROGEN 22 mg/dL (7-18); eGFR NON AFRICAN AMERICAN 60 mL/min (90-120)
[2018-10-25 00:17] LABS: C-REACTIVE PROTEIN 0.6 mg/dL (0.0-0.9); TROPONIN-I < 0.017 ng/mL (0.000-0.060)
--- NOTE | 2018-10-25 00:30 | NUR ---
URINE SPECIMEN SENT TO LAB.
[2018-10-25 00:38] LABS: APPEARANCE CLEAR (CLEAR); BILIRUBIN NEGATIVE (NEGATIVE); COLOR YELLOW (YELLOW); GLUCOSE NEGATIVE (NEGATIVE); KETONE NEGATIVE (NEGATIVE); NITRITE NEGATIVE (NEGATIVE); PROTEIN NEGATIVE (NEGATIVE); UROBILINOGEN NORMAL (NORMAL)
--- NOTE | 2018-10-25 00:38 | NUR ---
REC'D PATIENT FROM ER. PATIENT HAS NO S/S OF DISTRESS. COMPLETED PATIENT ASSESSMENT. BROUGHT PATIENT A SNACK AND DRINK PER HIS REQUEST. PATIENT DENIES OTHER NEEDS AT THIS TIME. BED IN LOWEST POSITION AND CALL LIGHT WITHIN REACH. ENCOURAGED THE PATIENT TO CALL IF HE HAS NEEDS. WILL CONTINUE TO MONITOR.
[2018-10-25 00:44] LABS: UDS - AMPHET NEGATIVE QUAL (NEGATIVE); UDS - BARB NEGATIVE QUAL (NEGATIVE); UDS - BENZO NEGATIVE QUAL (NEGATIVE); UDS - COCAINE POSITIVE QUAL (NEGATIVE); UDS - OPIATE POSITIVE QUAL (NEGATIVE); UDS - PCP NEGATIVE QUAL (NEGATIVE); UDS - THC POSITIVE QUAL (NEGATIVE)
--- NOTE | 2018-10-25 07:34 | NUR ---
AWAKE AND ALERT. ORIENTED X3. C/O LEFT KNEE PAIN LEVEL 9. GIVEN 1MG DILAUDID SLOW IVP FOR SAME. WILL MONITOR. LUNGS ARE CLEAR BILATERALLY, DENIES COUGH. SKIN IS INTACT WITHOUT REDNESS EXCEPT LEFT KNEE WHICH IS WARM AND SLIGHTLY EDEMATOUS. IV TO LEFT AC IS PATENT WITHOUT REDNESS AT INSERTION SITE. DENIES NEEDS.
[2018-10-25 10:52] LABS: ERYTHROCYTE SEDIMENTATION RATE 65 mm/hr (0-20)
--- NOTE | 2018-10-25 10:58 | NUR ---
RELIGIOUS ASSISTANT INITIATED AND PATIENT INSTRUCTED IN USE. NO NEEDS NOTED.
[2018-10-25 11:47] LABS: HEMATOCRIT 28.6 % (42.0-54.0); HEMOGLOBIN 9.7 g/dL (13.5-17.5); MCH 30.5 pg (26.0-34.0); MCHC 33.9 g/dL (31.0-37.0); MCV 89.9 fL (80.0-100.0); MEAN PLATELET VOLUME 8.5 fL (7.4-10.4); RBC 3.18 10x6/uL (4.20-6.10); WBC 4.7 10x3/uL (4.8-10.8)
--- NOTE | 2018-10-25 14:13 | NUR ---
REQUESTED AND GIVEN 25MG BENEDRYL PO FOR C/O INTERMITTANT ITCHING. WILL MONITOR.
--- NOTE | 2018-10-25 18:49 | NUR ---
ATE ALL OF SUPPER. NO CHANGES NOTED. DENIES NEEDS.
--- NOTE | 2018-10-25 20:15 | NUR ---
PT IN BED WITH EYES OPEN WATCHING TV. NO CONCERNS MADE KNOWN AT THIS TIME. WILL CONTINUE TO OBSERVE.
[2018-10-26] VITALS (11 sets, daily range): BP systolic 93–134; BP diastolic 49–86
--- NOTE | 2018-10-26 00:25 | NUR ---
PT COMPLAINS OF NAUSEA WITH SALTINE CRACKERS GIVEN TO PROVIDE RELIEF. ALSO COMPLAINS OF ITCHING WITH PRN BENADRYL GIVEN. WILL CONTINUE TO OBSERVE.
--- NOTE | 2018-10-26 06:44 | NUR ---
PT WATCHING TV. NO NEEDS NOTED AT THIS TIME. WILL CONTINUE TO OBSERVE.
--- NOTE | 2018-10-26 14:58 | NUR ---
FENTANYL 100 MCG GIVEN IVP FOR PAIN DURING PROCEDURE.
[2018-10-26 16:59] LABS: PROTEIN - BODY FLUID 5.8 G/DL
[2018-10-26 17:02] LABS: HEMATOCRIT 28.8 % (42.0-54.0); HEMOGLOBIN 10.1 g/dL (13.5-17.5); MCH 31.6 pg (26.0-34.0); MCHC 35.1 g/dL (31.0-37.0); MEAN PLATELET VOLUME 8.4 fL (7.4-10.4); RDW 15.8 % (11.5-14.5); WBC 5.2 10x3/uL (4.8-10.8)
[2018-10-26 17:16] LABS: APTT 32.6 SECONDS (22.8-39.4); INR 1.12 (0.85-1.17); PROTIME 13.9 SECONDS (11.6-15.0)
[2018-10-26 17:35] LABS: PLATELET COUNT 251 10x3/uL (130-400)
[2018-10-26 17:50] LABS: EOS BF 3 %; MACROPHAGES BF 21 %; NEUT - BF 58 %
[2018-10-26 17:53] LABS: EOSINOPHILS 11 % (0-7); LYMPHOCYTES 37 % (15-50); NEUTROPHILS 51 % (40-80); PLATELET ESTIMATE NORMAL
[2018-10-26 17:58] LABS: ANION GAP 14.2 mmol/L (8-16); CALCIUM 9.3 mg/dL (8.5-10.1); CARBON DIOXIDE 23.8 mmol/L (21.0-32.0); CREATININE - SERUM 1.1 mg/dL (0.6-1.3)
[2018-10-27 04:51] VITALS: BP 124/84
[2018-10-27 05:42] LABS: BASOPHILS 0.7 % (0-2); EOSINOPHILS 6.7 % (0-7); HEMATOCRIT 28.2 % (42.0-54.0); HEMOGLOBIN 9.7 g/dL (13.5-17.5); LYMPHOCYTES 37.8 % (15-50); MCH 30.7 pg (26.0-34.0); MCHC 34.4 g/dL (31.0-37.0); MCV 89.2 fL (80.0-100.0); MEAN PLATELET VOLUME 8.5 fL (7.4-10.4); MONOCYTES 8.8 % (2-11); PLATELET COUNT 263 10x3/uL (130-400); RBC 3.16 10x6/uL (4.20-6.10); WBC 6.1 10x3/uL (4.8-10.8)
[2018-10-27 05:51] LABS: ANION GAP 12.4 mmol/L (8-16); CALCIUM 9.7 mg/dL (8.5-10.1); CARBON DIOXIDE 27.1 mmol/L (21.0-32.0); CREATININE - SERUM 1.1 mg/dL (0.6-1.3); POTASSIUM - SERUM 4.5 mmol/L (3.5-5.1)
[2018-10-27 08:30] VITALS: BP 129/60
--- NOTE | 2018-10-27 12:51 | NUR ---
PATIENT UNHOOKED FROM IV. PATIENT WANTED TO WALK AROUND OUTSIDE. WILL ALERT ME WHEN HES BACK. WILL CONTINUE TO MONITOR
[2018-10-27 14:08] VITALS: BP 117/87
[2018-10-27 16:44] VITALS: BP 97/66
--- NOTE | 2018-10-27 19:53 | NUR ---
PT IV DISCONNECTED FROM BIODIESEL PLANT MANAGER PUMP AT PT'S REQUEST IN ORDER FOR PT TO WALK ABOUT [facility] FOR A BIT AT 1930. WILL RECONNECT WHEN PT RETURNS TO ROOM
--- NOTE | 2018-10-28 00:39 | NUR ---
PT COMPLAINS OF ITCHING PRN BENEDRYL GIVEN
[2018-10-28 02:05] VITALS: BP 121/65
[2018-10-28 05:24] VITALS: BP 134/70
--- NOTE | 2018-10-28 08:05 | NUR ---
PT IS RESTING IN BED WITH EYES OPEN. RESPIRATIONS ARE EVEN AND UNLABORED. PT REPORTS PAIN TO LEFT KNEE /. WILL ADDRESS. SEE EMAR. MECHANICAL COMMISSIONING ENGINEER DILAUDID DC AT THIS TIME PER ORDER. PT DENIES PRESENCE OF NUMBNESS/TINGLING. PT DENIES PRESENCE OF N/V. PT DENIES FURTHER NEEDS AT THIS TIME. BED IS IN THE LOWEST POSITION. CALL LIGHT AND BEDSIDE TABLE ARE WITHIN REACH. SIDE RAILS X 2. WILL CONT TO MONITOR.
[2018-10-28 08:40] VITALS: BP 117/81
[2018-10-28 12:40] VITALS: BP 105/72
--- NOTE | 2018-10-28 20:00 | NUR ---
ALERT SITTING UP ON SIDE OF BED, NO APPARENT DISTRESS, SEE SHIFT ASSESSMENT, CALL LIGHT IN REACH
[2018-10-28 20:49] VITALS: BP 98/69
[2018-10-29 04:59] VITALS: BP 108/74
[2018-10-29] MEDS ORDERED: PERCOCET 10-321 EAC1 PO (08:40)
[2018-10-29 09:22] VITALS: BP 103/78
[2018-10-29] MEDS ORDERED: RIFADIN300 MG PO (11:47)
--- NOTE | 2018-10-29 14:57 | MORECARE ---
CASE MANAGEMENT DISCHARGE SUMMARY PATIENT: OMAR PETERSON UNIT: [id number] ADM DATE: 10/24/18 AGE: 62 : 57 SEX: M ROOM/BED: D.2205 AUTHOR: RAMYA VELAZQUEZ PHYSICIAN: REFERRING PHYSICIAN: ROSA FARIAS MD DATE OF SERVICE: 10/29/18 Discharge Plan Patient Name: OMAR PETERSON [facility] [facility] 1955 Planned Disposition: Anticipated Discharge Date: Discharge Date: Expected LOS: Initial Reviewer: [email or web address] Initial Review Date: 10/25/2018 Generated: 10/29/18 3:57 pm Comments DCP- Discharge Planning Updated by [email or web address]: Kassandra Feldman on 10/29/18 1:[address] Patient discharging home today, he denies any needs he is independent with his care at home. needs to get home because his dog just . No needs identified Patient Name: OMAR PETERSON Page [id number] at 1457 All edits/amendments must be made on the electronic document DICTATION DATE: 10/29/181455 AUTO ADJUDICATION SPECIALIST: RAYMOND 10/29/181455 RPT#: [id number] DC DATE: STATUS: ADM IN [facility] [address] [place] [address] END OF REPORT
--- NOTE | 2018-11-01 11:38 | MORECARE ---
CASE MANAGEMENT DISCHARGE SUMMARY PATIENT: OMAR PETERSON UNIT: [id number] ADM DATE: 10/24/18 AGE: 62 : 57 SEX: M ROOM/BED: D.2205 AUTHOR: RAMYA VELAZQUEZ PHYSICIAN: REFERRING PHYSICIAN: ROSA FARIAS MD DATE OF SERVICE: 11/01/18 Discharge Plan Patient Name: OMAR PETERSON Facility: [facility]:[place] : 1955 Planned Disposition: Anticipated Discharge Date: Discharge Date: 10/29/2018 Expected LOS: Initial Reviewer: [email or web address] Initial Review Date: 10/25/2018 Generated: 11/01/18 12:37 pm Comments DCP- Discharge Planning Updated by [email or web address]: Kassandra Feldman on 10/29/18 1:[address] Patient discharging home today, he denies any needs he is independent with his care at home. needs to get home because his dog just . No needs identified Last DP export: 10/29/18 1:57 p Patient Name: OMAR PETERSON Page [id number] at 1138 All edits/amendments must be made on the electronic document DICTATION DATE: 11/01/181136 URBAN DESIGNER: RAYMOND 11/01/181136 RPT#: [id number] DC DATE:10/29/18 STATUS: DIS IN [facility] [address] [place] [address] END OF REPORT
== END 2018-10-29 14:58 | disposition home or self-care (01) | DRG 560 ==
LOC: D.ER 23:19 → D.MS 23:43
PROVIDERS: Family Medicine; General Practice; Student in an Organized Health Care Education/Training Program; ADMIT Orthopaedic Surgery; ATTEND Orthopaedic Surgery
PROC: 0S9D3ZZ Drainage of Left Knee Joint, Percutaneous Approach (ICD-10-PCS; principal; 2018-10-26 14:33)
DX: T84.54XA Infection and inflammatory reaction due to internal left knee prosthesis, initial encounter (principal); T81.41XA Infection following a procedure, superficial incisional surgical site, initial encounter; D62 Acute posthemorrhagic anemia; M81.0 Age-related osteoporosis without current pathological fracture; B95.62 Methicillin resistant Staphylococcus aureus infection as the cause of diseases classified elsewhere; Z16.30 Resistance to unspecified antimicrobial drugs; Z96.652 Presence of left artificial knee joint; Y83.9 Surgical procedure, unspecified as the cause of abnormal reaction of the patient, or of later complication, without mention of misadventure at the time of the procedure

== ENCOUNTER 2018-11-03 22:54 | Inpatient (IN) | payer MEDICAID ==
--- NOTE | 2018-11-03 23:15 | NUR ---
REC'D TO ROOM 2230 VIA STRETCHER ACCOMPAINED BY SOLUTIONS DELIVERY CONSULTANT. PT AWAKE AND ALERT. RESP EVEN AND UNLABORED WITH NO DISTRESS NOTED. CAN EXPRESS NEEDS AND WANTS WITH NO C/O NOTED OR VOICED. ASSESSMENT COMPLETED. DR. FARIAS PAGE TO NOTIFY HIM OF PT ARRIVAL. C/L IN REACH AT BEDSIDE.
[2018-11-04 00:45] VITALS: BP 128/66
--- NOTE | 2018-11-04 01:30 | NUR ---
INSTRUMENT REPAIRER HELPER OF DILAUDID INTITIATED AT THIS TIME. C/L IN REACH AT BEDSIDE.
--- NOTE | 2018-11-04 03:41 | NUR ---
I have reviewed this patient and I concur with the Shift Assessment completed by the Licensed Practical Nurse today this shift.
[2018-11-04 04:44] LABS: BASOPHILS 0.4 % (0-2); EOSINOPHILS 4.4 % (0-7); HEMATOCRIT 27.2 % (42.0-54.0); HEMOGLOBIN 9.4 g/dL (13.5-17.5); IMMATURE GRANULOCYTES 0.2 % (0-5); LYMPHOCYTES 42.9 % (15-50); MCH 30.7 pg (26.0-34.0); MCHC 34.6 g/dL (31.0-37.0); MCV 88.9 fL (80.0-100.0); MEAN PLATELET VOLUME 8.6 fL (7.4-10.4); MONOCYTES 12.2 % (2-11); NEUTROPHILS 39.9 % (40-80); RBC 3.06 10x6/uL (4.20-6.10); RDW 15.8 % (11.5-14.5); WBC 4.5 10x3/uL (4.8-10.8)
[2018-11-04 04:45] LABS: PLATELET COUNT 175 10x3/uL (130-400)
[2018-11-04 05:12] VITALS: BP 102/63
[2018-11-04 05:12] LABS: ALBUMIN 3.1 g/dL (3.4-5.0); ALKALINE PHOSPHATASE 64 U/L (46-116); ALT (SGPT) 14 U/L (10-68); BILIRUBIN - TOTAL 0.47 mg/dL (0.2-1.3); C-REACTIVE PROTEIN 0.9 mg/dL (0.0-0.9); CALC OSMOLALITY 273 mosm/kg (275-300); CALCIUM 9.1 mg/dL (8.5-10.1); CARBON DIOXIDE 23.3 mmol/L (21.0-32.0); CHLORIDE - SERUM 103 mmol/L (98-107); GLUCOSE 82 mg/dL (74-106); POTASSIUM - SERUM 4.1 mmol/L (3.5-5.1); PROTEIN - SERUM 7.6 g/dL (6.4-8.2); SODIUM 137 mmol/L (136-145); UREA NITROGEN 16 mg/dL (7-18); eGFR NON AFRICAN AMERICAN 81 mL/min (90-120)
[2018-11-04 05:31] LABS: ERYTHROCYTE SEDIMENTATION RATE 58 mm/hr (0-20)
[2018-11-04 08:35] VITALS: BP 115/74
--- NOTE | 2018-11-04 11:56 | NUR ---
BEATRIZ RAMEY IN ROOM TO ASPIRATE LEFT KNEE
[2018-11-04 12:11] VITALS: BP 103/78
[2018-11-04 16:08] VITALS: BP 111/79
--- NOTE | 2018-11-04 19:30 | NUR ---
REC'D IN BED SITTING ON SIDE OF BED AWAK AND ALERT. RESP EVEN AND UNLABORED WITH NO DISTRESS NOTED. CAN EXPRESS NEEDS AND WANTS. NO C/O NOTED OR VOICED. ASSESSMENT COMPLETED.
[2018-11-04 21:34] VITALS: BP 111/77
[2018-11-05 01:25] VITALS: BP 124/80
--- NOTE | 2018-11-05 02:47 | NUR ---
I have reviewed this patient and I concur with the Shift Assessment completed by the Licensed Practical Nurse today this shift.
[2018-11-05 05:27] VITALS: BP 120/84
--- NOTE | 2018-11-05 07:45 | NUR ---
AAOX4. ON ROOM AIR, LEFT FOREARM IV INFUSING NORMAL SALINE 100ML/HR WITH DILAUDID DIESEL ROLLER OPERATOR AT 0.2/10/0.4 POST OP DAY ONE FROM LEFT KNEE I&D. DENIES ANY CURRENT NEEDS OR DISCOMFORTS, BED LOWERED AND LOCKED, CALL LIGHT WITHIN REACH. CPOC
[2018-11-05 08:17] VITALS: BP 112/79
--- NOTE | 2018-11-05 08:22 | NUR ---
PAIN LEVEL 8/10. BOLUS DOSE OF DILAUDID PER ORDER GIVEN. BED LOWERED AND LOCKED, CALL LIGHT WITHIN REACH. CPOC
[2018-11-05] MEDS ORDERED: MOBIC7.5 MG PO (08:32)
[2018-11-05] MEDS ORDERED: PERCOCET 10-321 EAC1 PO (08:33)
--- NOTE | 2018-11-05 09:03 | NUR ---
PT STATED HE CAN GET A RIDE TO PICK HIM UP AFTER 1, CALLED [facility] AND LEFT MESSAGE FOR BEATRIZ ALVES TO KNOW PER PT REQUEST, NO OTHER NEEDS VOICED, CONTINUE WITH PLAN OF CARE
--- NOTE | 2018-11-05 11:12 | MORECARE ---
CASE MANAGEMENT DISCHARGE SUMMARY PATIENT: OMAR GUTIERREZ UNIT: [id number] ADM DATE: 11/03/18 AGE: 62 : 57 SEX: M ROOM/BED: D.2230 AUTHOR: RAMYA VELAZQUEZ PHYSICIAN: REFERRING PHYSICIAN: ROSA FARIAS MD DATE OF SERVICE: 11/05/18 Discharge Plan Patient Name: OMAR GUTIERREZ [facility] [facility] 1955 Planned Disposition: Home or Self Care Anticipated Discharge Date: 11/05/18 Discharge Date: Expected LOS: 2 Initial Reviewer: [email or web address] Initial Review Date: 11/05/2018 Generated: 11/05/18 12:12 pm DCPIA - Discharge Planning Initial Assessment Updated by [email or web address]: Kate Pringle on 11/05/18 11:12 am * Is the patient Alert and Oriented? Yes * How many steps to enter\exit or inside your home? 0/0 * PCP Dr Leon in [place], sees the SHOE REPAIRMAN * Pharmacy [facility] in [place] * Preadmission Environment Home Alone * ADLs Independent * Equipment Bedside Commode Cane Walker * List name and contact numbers for known caregivers / representatives who currently or will assist patient after discharge: Omari Gutierrez [facility] - [phone] * Verbal permission to speak to the caregivers and representatives has been obtained from the patient. Yes * Community resources currently utilized Other * Please name any agencies selected above. Outpatient PT at [facility] * Additional services required to return to the preadmission environment? No * Can the patient safely return to the preadmission environment? Yes * Has this patient been hospitalized within the prior 30 days at any hospital? Yes Patient Name: OMAR GUTIERREZ Page 21197 at 1112 All edits/amendments must be made on the electronic document DICTATION DATE: 11/05/18 1111 ROLLED OATS MILL OPERATOR: RAYMOND 11/05/18 1111 RPT#: [id number] DC DATE: STATUS: ADM IN [facility] [address] [place] [address] END OF REPORT
--- NOTE | 2018-11-05 11:21 | MORECARE ---
CASE MANAGEMENT DISCHARGE SUMMARY PATIENT: OMAR GUTIERREZ UNIT: [id number] ADM DATE: 11/03/18 AGE: 62 : 57 SEX: M ROOM/BED: D.2230 AUTHOR: CAROLINE,DOC PHYSICIAN: REFERRING PHYSICIAN: ROSA FARIAS MD DATE OF SERVICE: 11/05/18 Discharge Plan Patient Name: OMAR GUTIERREZ Facility: [facility]:[place] : 1955 Planned Disposition: Home or Self Care Anticipated Discharge Date: 11/05/18 Discharge Date: Expected LOS: 2 Initial Reviewer: [email or web address] Initial Review Date: 11/05/2018 Generated: 11/05/18 12:20 pm Comments DCP- Discharge Planning Updated by [email or web address]: Kate Pringle on 11/05/18 10:[address] Patient Name: OMAR GUTIERREZ Admission Status: Elective Accout number: [id number] Admission Date: 11-03-2018 : 1955 Admission Diagnosis: Attending: ROSA FARIAS Current LOS: 2 Anticipated DC Date: 11-05-2018 Planned Disposition: Home or Self Care Primary Insurance: MEDICAID [place] Discharge Planning Comments: CM met with patient to complete initial dc planning assessment. CM educated patient on the CM role and verbal consent given by patient to complete assessment. Patient lives at home alone. At discharge patient plans to return and feels this is a safe discharge. He states that he is going to [facility] for outpatient PT and will continue this. CM discussed availability of home health, rehab services, and medical equipment. Patient denied known discharge needs at this time. States he will need transportation home. I called [facility] and spoke to Tiki, they will pick him up at the front entrance (Confirmation number [id number]). CM will continue to follow and will assist as needed with dc plans/needs. Emergency Room Physician Assistant: Kate Pringle DCPIA - Discharge Planning Initial Assessment Updated by [email or web address]: Kate Pringle on 11/05/18 11:12 am * Is the patient Alert and Oriented? Yes * How many steps to enter\exit or inside your home? 0/0 * PCP Dr Leon in [place], sees the CUB REPORTER * Pharmacy [facility] in [place] * Preadmission Environment Home Alone * ADLs Independent * Equipment Bedside Commode Cane Walker * List name and contact numbers for known caregivers / representatives who currently or will assist patient after discharge: Omari Gutierrez - goyoer - [phone] * Verbal permission to speak to the caregivers and representatives has been obtained from the patient. Yes * Community resources currently utilized Other * Please name any agencies selected above. Outpatient PT at [facility] in [place] * Additional services required to return to the preadmission environment? No * Can the patient safely return to the preadmission environment? Yes * Has this patient been hospitalized within the prior 30 days at any hospital? Yes Last DP export: 11/05/18 10:12 am Patient Name: OMAR GUTIERREZ Page 69945 at 1121 All edits/amendments must be made on the electronic document DICTATION DATE: 11/05/18 112 DIVERSIFIED CROPS SUPERVISOR: RAYMOND 11/05/18 112 RPT#: [id number] DC DATE: STATUS: ADM IN [facility] [address] [place] [address] END OF REPORT
[2018-11-05 11:33] VITALS: BP 112/79; BMI 26.5
--- NOTE | 2018-11-05 11:36 | NUR ---
DISCHARGE INSTRUCTIONS GIVEN, VERBALIZES UNDERSTANDING, IV CATHETER DISCONTINUED FROM LEFT FOREARM. TIP INTACT. DENIES ANY QUESTIONS OR CONCERNS,
--- NOTE | 2018-11-05 13:59 | MORECARE ---
CASE MANAGEMENT DISCHARGE SUMMARY PATIENT: OMAR GUTIERREZ UNIT: [id number] ADM DATE: 11/03/18 AGE: 62 : 57 SEX: M ROOM/BED: D.2230 AUTHOR: CAROLINE,DOC PHYSICIAN: REFERRING PHYSICIAN: ROSA FARIAS MD DATE OF SERVICE: 11/05/18 Discharge Plan Patient Name: OMAR GUTIERREZ Facility: [facility]:[place] : 1955 Planned Disposition: Home or Self Care Anticipated Discharge Date: 11/05/18 Discharge Date: 11/05/2018 Expected LOS: 2 Initial Reviewer: [email or web address] Initial Review Date: 11/05/2018 Generated: 11/05/18 2:58 pm Comments DCP- Discharge Planning Updated by [email or web address]: Kate Pringle on 11/05/18 10:[address] Patient Name: OMAR GUTIERREZ Admission Status: Elective Accout number: [id number] Admission Date: 11-03-2018 : 1955 Admission Diagnosis: Attending: ROSA FARIAS Current LOS: 2 Anticipated DC Date: 11-05-2018 Planned Disposition: Home or Self Care Primary Insurance: MEDICAID [place] Discharge Planning Comments: CM met with patient to complete initial dc planning assessment. CM educated patient on the CM role and verbal consent given by patient to complete assessment. Patient lives at home alone. At discharge patient plans to return and feels this is a safe discharge. He states that he is going to [facility] for outpatient PT and will continue this. CM discussed availability of home health, rehab services, and medical equipment. Patient denied known discharge needs at this time. States he will need transportation home. I called [facility] and spoke to Tiki, they will pick him up at the front entrance (Confirmation number [id number]). CM will continue to follow and will assist as needed with dc plans/needs. Asphalt Heater Tender: Kate Pringle DCPIA - Discharge Planning Initial Assessment Updated by [email or web address]: Kate Pringle on 11/05/18 11:12 am * Is the patient Alert and Oriented? Yes * How many steps to enter\exit or inside your home? 0/0 * PCP Dr Leon in [place], sees the FLORIST DESIGNER * Pharmacy [facility] in [place] * Preadmission Environment Home Alone * ADLs Independent * Equipment Bedside Commode Cane Walker * List name and contact numbers for known caregivers / representatives who currently or will assist patient after discharge: Omari Gutierrez - brother - [phone] * Verbal permission to speak to the caregivers and representatives has been obtained from the patient. Yes * Community resources currently utilized Other * Please name any agencies selected above. Outpatient PT at [facility] in [place] * Additional services required to return to the preadmission environment? No * Can the patient safely return to the preadmission environment? Yes * Has this patient been hospitalized within the prior 30 days at any hospital? Yes Last DP export: 11/05/18 10:21 am Patient Name: OMAR GUTIERREZ Page 81545 at 1359 All edits/amendments must be made on the electronic document DICTATION DATE: 11/05/181357 WEBSITE DEVELOPER: RAYMOND 11/05/18 135 RPT#: [id number] DC DATE:11/05/18 STATUS: DIS IN [facility] [address] [place] [address] END OF REPORT
[2018-11-11 09:50] VITALS: BMI 26.5
== END 2018-11-05 12:09 | disposition home or self-care (01) | DRG 550 ==
LOC: D.MS 22:54
PROVIDERS: ADMIT Orthopaedic Surgery; ATTEND Orthopaedic Surgery
PROC: 0S9D3ZZ Drainage of Left Knee Joint, Percutaneous Approach (ICD-10-PCS; principal; 2018-11-04)
DX: M00.862 Arthritis due to other bacteria, left knee (principal); F17.210 Nicotine dependence, cigarettes, uncomplicated; G40.909 Epilepsy, unspecified, not intractable, without status epilepticus; M81.0 Age-related osteoporosis without current pathological fracture

== ENCOUNTER → 2019-01-14 08:00 | Outpatient (CLI) | payer MEDICAID ==
[2018-11-11 09:50] VITALS: BMI 26.5
[~2019-01-14 08:00] MED LIST changes: +MOBIC7.5 MG PO
== END | disposition home or self-care (01) ==
LOC: D.NM 08:00
PROVIDERS: ATTEND Orthopaedic Surgery
DX: M25.562 Pain in left knee (principal)

== ENCOUNTER → 2019-02-01 10:50 | Outpatient (CLI) | payer MEDICAID ==
[2018-11-11 09:50] VITALS: BMI 26.5
== END | disposition home or self-care (01) ==
LOC: D.CT 01-27 14:30
PROVIDERS: ATTEND Orthopaedic Surgery
DX: R07.9 Chest pain, unspecified (principal)

== ENCOUNTER 2019-03-04 13:49 | Emergency (ER) | payer MEDICAID ==
[~2019-03-04] VITALS: Ht 191.8 cm; Wt 113.4 kg
[2019-03-04 13:55] VITALS: Ht 191.8 cm; Wt 113.4 kg
[2019-03-04] MEDS ORDERED: HYDROCODON-ACE1 EA10 PO ×2 (14:02→16:42)
[2019-03-04 14:44] LABS: BASOPHILS 0.5 % (0-2); EOSINOPHILS 3.7 % (0-7); HEMATOCRIT 37.1 % (42.0-54.0); HEMOGLOBIN 13.2 g/dL (13.5-17.5); LYMPHOCYTES 38.7 % (15-50); MCH 33.3 pg (26.0-34.0); MCHC 35.6 g/dL (31.0-37.0); MCV 93.7 fL (80.0-100.0); MEAN PLATELET VOLUME 8.7 fL (7.4-10.4); MONOCYTES 13.1 % (2-11); RBC 3.96 10x6/uL (4.20-6.10); RDW 14.4 % (11.5-14.5); WBC 4.3 10x3/uL (4.8-10.8)
[2019-03-04 14:55] LABS: PLATELET COUNT 228 10x3/uL (130-400)
[2019-03-04 15:05] LABS: ANION GAP 14.6 mmol/L (8-16); BILIRUBIN - TOTAL 0.88 mg/dL (0.2-1.3); CALCIUM 9.6 mg/dL (8.5-10.1); CARBON DIOXIDE 26.6 mmol/L (21.0-32.0); CREATININE - SERUM 1.2 mg/dL (0.6-1.3); POTASSIUM - SERUM 4.2 mmol/L (3.5-5.1)
[2019-03-04 16:26] LABS: ERYTHROCYTE SEDIMENTATION RATE 41 mm/hr (0-20)
[2019-03-04] MEDS ORDERED: VOLTAREN75 MG PO (16:42)
[2019-03-04 18:12] VITALS: BP 119/64
== END 2019-03-04 18:15 | disposition home or self-care (01) ==
LOC: D.ER 13:49
PROVIDERS: Family Medicine
DX: M25.462 Effusion, left knee (principal); M25.562 Pain in left knee

== ENCOUNTER → 2019-03-16 17:08 | Outpatient (CLI) | payer MEDICAID ==
[2019-03-04 13:55] VITALS: BMI 26.5
[~2019-03-16 17:08] MED LIST changes: +VOLTAREN75 MG PO
[2019-03-16 17:28] LABS: BASOPHILS 0.5 % (0-2); EOSINOPHILS 4.7 % (0-7); HEMATOCRIT 36.8 % (42.0-54.0); HEMOGLOBIN 12.7 g/dL (13.5-17.5); IMMATURE GRANULOCYTES 0.3 % (0-5); LYMPHOCYTES 41.7 % (15-50); MCH 32.2 pg (26.0-34.0); MCHC 34.5 g/dL (31.0-37.0); MCV 93.4 fL (80.0-100.0); MEAN PLATELET VOLUME 9.1 fL (7.4-10.4); MONOCYTES 10.9 % (2-11); NEUTROPHILS 41.9 % (40-80); PLATELET COUNT 268 10x3/uL (130-400); RBC 3.94 10x6/uL (4.20-6.10); RDW 14.1 % (11.5-14.5); WBC 3.9 10x3/uL (4.8-10.8)
[2019-03-16 18:28] LABS: ERYTHROCYTE SEDIMENTATION RATE 21 mm/hr (0-20)
== END | disposition home or self-care (01) ==
LOC: D.LABREF 17:08
PROVIDERS: ATTEND Clinical Nurse Specialist Family Health
DX: M25.562 Pain in left knee (principal)

== ENCOUNTER 2019-07-09 02:04 | Emergency (ER) | payer MEDICAID ==
[~2019-07-09] VITALS: Ht 191.8 cm; Wt 90.9 kg
[2019-07-09 02:05] VITALS: Ht 191.8 cm; Wt 90.9 kg
[2019-07-09] MEDS ORDERED: HYDROCODON-ACE1 EA10 PO (05:00)
[2019-07-09 05:09] VITALS: BP 124/70
== END 2019-07-09 05:09 | disposition home or self-care (01) ==
LOC: D.ER 02:04
DX: M54.5 Low back pain (principal); M54.6 Pain in thoracic spine; W11.XXXA Fall on and from ladder, initial encounter; Y93.9 Activity, unspecified; Y92.9 Unspecified place or not applicable

== ENCOUNTER 2019-10-05 23:11 | Emergency (ER) | payer MEDICAID ==
[~2019-10-05] VITALS: Ht 191.8 cm; Wt 109.1 kg
[2019-10-05 23:14] VITALS: Ht 191.8 cm; Wt 109.1 kg
[2019-10-05] MEDS ORDERED: CYCLOBENZAPRINE10 MG PO (23:49)
[2019-10-06 00:17] VITALS: BP 109/79
== END 2019-10-06 00:18 | disposition home or self-care (01) ==
LOC: D.ER 23:11
DX: M54.6 Pain in thoracic spine (principal); K21.9 Gastro-esophageal reflux disease without esophagitis; M54.9 Dorsalgia, unspecified

== ENCOUNTER 2020-11-19 18:07 | Inpatient (IN) | payer MEDICAID ==
[~2020-11-19] VITALS: Ht 190.5 cm; Wt 94.1 kg
[~2020-11-19 18:07] MED LIST changes: +CYCLOBENZAPRINE10 MG PO
[2020-11-19 18:59] LABS: BASOPHILS 0.7 % (0-2); EOSINOPHILS 0.2 % (0-7); HEMATOCRIT 39.4 % (42.0-54.0); MCH 31.4 pg (26.0-34.0); MCV 95.2 fL (80.0-100.0); MEAN PLATELET VOLUME 6.7 fL (7.4-10.4); NEUTROPHILS 59.1 % (40-80); RBC 4.14 10x6/uL (4.20-6.10); RDW 15.2 % (11.5-14.5); WBC 4.2 10x3/uL (4.8-10.8)
[2020-11-19 19:01] LABS: ANION GAP 10.2 mmol/L (8-16); CALCIUM 9.1 mg/dL (8.5-10.1); CARBON DIOXIDE 26.2 mmol/L (21.0-32.0); CREATININE - SERUM 1.4 mg/dL (0.6-1.3); POTASSIUM - SERUM 4.4 mmol/L (3.5-5.1)
[2020-11-19 19:09] LABS: ALBUMIN 3.6 g/dL (3.4-5.0); BILIRUBIN - TOTAL 0.62 mg/dL (0.2-1.3); PROTEIN - SERUM 8.1 g/dL (6.4-8.2)
[2020-11-19 19:15] LABS: PLATELET COUNT 210 10x3/uL (130-400)
--- NOTE | 2020-11-19 21:06 | NUR ---
LAB CALLED FOR FLU AND SARS SWAB. WAS TOLD BY PATIENT AND OFF GOING NURSE THEY WERE DONE. PATIENT SWABBED FOR COVID RAPID SEND OFF AND FLU AND ALL WERE TAKEN TO LAB NOW
--- NOTE | 2020-11-19 21:21 | NUR ---
REPORT CALLED TO JAYLEEN ON MED2 ROOM IS DIRTY. WILL CALL WHEN CLEAN.
[2020-11-19 21:29] LABS: INFLUENZA TYPE A NEGATIVE (NEGATIVE); INFLUENZA TYPE B NEGATIVE (NEGATIVE); SARS-CoV-2 ANTIGEN NEGATIVE- SARS-COV-2 (NEGATIVE)
--- NOTE | 2020-11-19 23:03 | NUR ---
UA SENT TO LAB
[2020-11-19 23:31] LABS: BILIRUBIN NEGATIVE (NEGATIVE); KETONE NEGATIVE (NEGATIVE); NITRITE NEGATIVE (NEGATIVE); UROBILINOGEN NORMAL mg/dL (< 2)
[2020-11-20 00:17] VITALS: BP 102/66; BMI 25.9
[2020-11-20 04:00] VITALS: BP 99/40
--- NOTE | 2020-11-20 06:39 | NUR ---
PT HR PER TELE 38-41. PT ASYMPTOMATIC UPON ASSESMENT PT STATES HE IS UNAWARE HR RAN THAT LOW. PT STATES HE FEELS BETTER THAN YESTERDAY AT THIS TIME. JOSELYN FUENTES PAGED. ORDERS FOR EKG,CORDIOLOGY CONSULT, AND TRIPONIN LABS ORDERED. WILL CONTINUE TO MONITOR.
[2020-11-20 06:58] LABS: HEMATOCRIT 37.1 % (42.0-54.0); HEMOGLOBIN 12.5 g/dL (13.5-17.5); MCH 32.1 pg (26.0-34.0); MCHC 33.6 g/dL (31.0-37.0); MCV 95.4 fL (80.0-100.0); MEAN PLATELET VOLUME 7.1 fL (7.4-10.4); PLATELET COUNT 212 10x3/uL (130-400); RBC 3.89 10x6/uL (4.20-6.10); RDW 15.1 % (11.5-14.5)
--- NOTE | 2020-11-20 07:00 | NUR ---
Lying in bed, awake/alert/oriented, T/R self ad alin, cont of B/B with BRPs with assist ad lain, denies pain/other discomfort at this time, call light/phone/water within reach, no s/s of acute distress observed.
--- NOTE | 2020-11-20 07:05 | NUR ---
Call from laborer/key man Tyr[place] stating WBC is 1.7, placed on neutropenic isolation.
[2020-11-20 07:06] LABS: WBC 1.7 10x3/uL (4.8-10.8)
[2020-11-20 07:08] LABS: APTT 31.5 SECONDS (22.8-39.4); INR 1.11 (0.85-1.17); PROTIME 13.2 SECONDS (11.6-15.0)
[2020-11-20 07:10] LABS: D-DIMER-QUANTITATIVE 0.77 ug/mLFEU (0.20-0.54)
--- NOTE | 2020-11-20 07:35 | NUR ---
Call from assembly technician stating monitor is showing asystole, pt A/A/O with VS 97.6/16/97%/84/159/55; notified assembly technician of findings.
[2020-11-20 07:57] LABS: ALBUMIN 3.1 g/dL (3.4-5.0); ALKALINE PHOSPHATASE 67 U/L (30-120); ALT (SGPT) 26 U/L (10-68); BILIRUBIN - TOTAL 0.31 mg/dL (0.2-1.3); CALC OSMOLALITY 282 mosm/kg (275-300); CARBON DIOXIDE 24.6 mmol/L (21.0-32.0); CHLORIDE - SERUM 104 mmol/L (98-107); CKMB 1.1 U/L (0.0-3.6); CREATINE KINASE 179 UL (21-232); CREATININE - SERUM 1.3 mg/dL (0.6-1.3); GLUCOSE 141 mg/dL (74-106); MAGNESIUM - SERUM 2.2 mg/dL (1.8-2.4); POTASSIUM - SERUM 4.7 mmol/L (3.5-5.1); PRO BNP 92 pg/mL (0-125); PROTEIN - SERUM 6.9 g/dL (6.4-8.2); SODIUM 139 mmol/L (136-145); TROPONIN-I < 0.017 ng/mL (0.000-0.060); UREA NITROGEN 20 mg/dL (7-18); eGFR NON AFRICAN AMERICAN 59 mL/min (90-120)
[2020-11-20 08:03] VITALS: BP 91/64
[2020-11-20 08:39] VITALS: Ht 190.5 cm; Wt 94.1 kg
[2020-11-20 09:26] LABS: C-REACTIVE PROTEIN 4.3 mg/dL (0.0-0.9)
[2020-11-20 11:32] VITALS: BP 91/50
[2020-11-20 13:52] LABS: EOSINOPHILS 1 % (0-7); LYMPHOCYTES 37 % (15-50); MONOCYTES 4 % (2-11); NEUTROPHILS 56 % (40-80); PLATELET ESTIMATE NORMAL
[2020-11-20 16:11] VITALS: BP 99/70
--- NOTE | 2020-11-20 19:30 | NUR ---
PT IN BED, AAO X 4, RESP EVEN AND UNLABORED, NO DISTRESS NOTED, CL IN REACH, SR UP X 2.
[2020-11-20 21:00] VITALS: BP 84/45
[2020-11-21] VITALS: BP 132/75
--- NOTE | 2020-11-21 00:16 | NUR ---
I have reviewed this patient and I concur with the Shift Assessment completed by the Licensed Practical Nurse today this shift.
[2020-11-21 04:00] VITALS: BP 108/67
[2020-11-21 06:24] LABS: BASOPHILS 0.2 % (0-2); EOSINOPHILS 0 % (0-7); HEMATOCRIT 34.6 % (42.0-54.0); HEMOGLOBIN 11.4 g/dL (13.5-17.5); LYMPHOCYTES 22.2 % (15-50); MCH 31.8 pg (26.0-34.0); MCV 96.3 fL (80.0-100.0); MONOCYTES 6.6 % (2-11); PLATELET COUNT 231 10x3/uL (130-400); RDW 15.1 % (11.5-14.5)
[2020-11-21 06:28] LABS: WBC 3.9 10x3/uL (4.8-10.8)
[2020-11-21 06:40] LABS: ALBUMIN 2.8 g/dL (3.4-5.0); ANION GAP 12.2 mmol/L (8-16); BILIRUBIN - TOTAL 0.16 mg/dL (0.2-1.3); CALCIUM 8.8 mg/dL (8.5-10.1); CARBON DIOXIDE 25.1 mmol/L (21.0-32.0); CREATININE - SERUM 1.1 mg/dL (0.6-1.3); MAGNESIUM - SERUM 2.1 mg/dL (1.8-2.4); POTASSIUM - SERUM 4.3 mmol/L (3.5-5.1); PROTEIN - SERUM 6.6 g/dL (6.4-8.2)
--- NOTE | 2020-11-21 07:10 | NUR ---
Lying in bed with eyes closed, respirations slow/deep/even, rouses easily with verbal stimulus, T/R self ad alin, cont of B/B with BRPs per self ad alin, denies pain/other discomfort at this time, call light/phone/water within reach, no s/s of acute distress observed.
[2020-11-21 07:38] VITALS: BP 141/80
[2020-11-21 12:13] VITALS: BP 96/65
[2020-11-21 13:25] LABS: % SATURATION 50 % (15-55); IRON 84 ug/dl (35-150); TOTAL IRON BIND CAPACITY 166 ug/dl (260-445); UNSAT IRON BIND CAPACITY 82 ug/dl (150-375)
[2020-11-21 16:08] VITALS: BP 83/50
--- NOTE | 2020-11-21 16:26 | NUR ---
Lab called with Covid results, they are positive, paged Dr. Butterfield.
--- NOTE | 2020-11-21 16:33 | NUR ---
Notified Dr. Butterfield of Covid positive results, no new orders at this time.
--- NOTE | 2020-11-21 16:45 | NUR ---
Notified Dr. Choudhary of Covid results with NNO received at this time.
--- NOTE | 2020-11-21 19:30 | NUR ---
PT IN BED, AAO X 4, RESP EVEN AND UNLABORED, NO DISTRESS NOTED, CL IN REACH, SR UP X 2.
[2020-11-21 21:00] VITALS: BP 104/73
[2020-11-22] VITALS: BP 105/74
[2020-11-22 04:00] VITALS: BP 128/76
--- NOTE | 2020-11-22 04:10 | NUR ---
I have reviewed this patient and I concur with the Shift Assessment completed by the Licensed Practical Nurse today this shift.
[2020-11-22 06:31] LABS: BASOPHILS 0.2 % (0-2); EOSINOPHILS 0 % (0-7); HEMATOCRIT 34.8 % (42.0-54.0); HEMOGLOBIN 11.6 g/dL (13.5-17.5); LYMPHOCYTES 14.9 % (15-50); MCHC 33.5 g/dL (31.0-37.0); MCV 95.5 fL (80.0-100.0); MEAN PLATELET VOLUME 6.9 fL (7.4-10.4); MONOCYTES 4.2 % (2-11); NEUTROPHILS 80.7 % (40-80); RBC 3.64 10x6/uL (4.20-6.10); RDW 15.2 % (11.5-14.5); WBC 4.8 10x3/uL (4.8-10.8)
[2020-11-22 06:36] LABS: PLATELET COUNT 279 10x3/uL (130-400)
[2020-11-22 06:41] LABS: ALBUMIN 2.8 g/dL (3.4-5.0); ALKALINE PHOSPHATASE 63 U/L (30-120); ALT (SGPT) 29 U/L (10-68); BILIRUBIN - TOTAL 0.15 mg/dL (0.2-1.3); CALC OSMOLALITY 282 mosm/kg (275-300); CALCIUM 9.1 mg/dL (8.5-10.1); CARBON DIOXIDE 23.9 mmol/L (21.0-32.0); CHLORIDE - SERUM 108 mmol/L (98-107); CREATININE - SERUM 0.9 mg/dL (0.6-1.3); GLUCOSE 120 mg/dL (74-106); MAGNESIUM - SERUM 1.8 mg/dL (1.8-2.4); POTASSIUM - SERUM 4.2 mmol/L (3.5-5.1); PROTEIN - SERUM 6.7 g/dL (6.4-8.2); SODIUM 142 mmol/L (136-145); UREA NITROGEN 10 mg/dL (7-18); eGFR NON AFRICAN AMERICAN 90 mL/min (90-120)
--- NOTE | 2020-11-22 07:30 | NUR ---
Lying in bed, awake/alert/oriented, T/R self ad alin, cont of B/B with BRPs per self ad alin, denies pain/other discomfort at this time, call light/phone/water within reach, no s/s of acute distress observed.
[2020-11-22 08:09] VITALS: BP 94/57
[2020-11-22 11:21] VITALS: BP 96/67
[2020-11-22 15:53] VITALS: BP 102/59
--- NOTE | 2020-11-22 19:30 | NUR ---
PT IN BED, AAO X 4, NO DISTRESS NOTED, RESP EVEN AND UNLABORED, NEW 22G IV STARTED IN LEFT FOREARM, X 1 STICK, CL IN REACH, SR UP X 2.
[2020-11-22 23:18] VITALS: BP 107/76
--- NOTE | 2020-11-23 01:54 | NUR ---
I have reviewed this patient and I concur with the Shift Assessment completed by the Licensed Practical Nurse today this shift.
[2020-11-23 05:18] VITALS: BP 100/68
[2020-11-23 06:16] LABS: HEMATOCRIT 34.7 % (42.0-54.0); HEMOGLOBIN 11.7 g/dL (13.5-17.5); MCH 32.1 pg (26.0-34.0); MCHC 33.8 g/dL (31.0-37.0); MCV 95.1 fL (80.0-100.0); MEAN PLATELET VOLUME 6.9 fL (7.4-10.4); PLATELET COUNT 318 10x3/uL (130-400); RBC 3.65 10x6/uL (4.20-6.10); WBC 3.7 10x3/uL (4.8-10.8)
[2020-11-23 06:51] LABS: ALBUMIN 2.9 g/dL (3.4-5.0); ANION GAP 11.6 mmol/L (8-16); BILIRUBIN - TOTAL 0.29 mg/dL (0.2-1.3); CARBON DIOXIDE 26.9 mmol/L (21.0-32.0); CREATININE - SERUM 1.1 mg/dL (0.6-1.3); MAGNESIUM - SERUM 1.8 mg/dL (1.8-2.4); POTASSIUM - SERUM 4.5 mmol/L (3.5-5.1)
[2020-11-23 06:59] LABS: BASOPHILS 0.3 % (0-2); EOSINOPHILS 0 % (0-7); LYMPHOCYTES 20.8 % (15-50); MONOCYTES 4.3 % (2-11); NEUTROPHILS 74.6 % (40-80)
--- NOTE | 2020-11-23 07:28 | NUR ---
PT LYING IN BED. RESP EVEN AND UNLABORED. AAO X4. PT STATES HE HAS HAD HICCUPS FOR 3 DAYS. DENIES NEEDS AT THIS TIME. CLIR. BED IN LOWEST POSITION. SIDE RAIS X2
[2020-11-23 08:25] VITALS: BP 112/70
[2020-11-23 12:04] VITALS: BP 105/61
--- NOTE | 2020-11-23 18:12 | NUR ---
I have reviewed this patient and I concur with the Shift Assessment completed by the Licensed Practical Nurse today this shift.
--- NOTE | 2020-11-23 18:50 | NUR ---
REPORT RECEIVED, PT CARE ASSUMED. PT LYING IN BED, EYES CLOSED, RR EVEN AND NONLABORED, NAD, AROUSES EASILY TO VOICE. DENIES ANY NEEDS AT THIS TIME, BED LOWEST, SRX2, CL WITHIN REACH. CPOC.
[2020-11-23 20:37] VITALS: BP 120/73
[2020-11-24 06:52] LABS: BASOPHILS 0.6 % (0-2); EOSINOPHILS 0 % (0-7); HEMATOCRIT 35.6 % (42.0-54.0); HEMOGLOBIN 11.9 g/dL (13.5-17.5); LYMPHOCYTES 24.7 % (15-50); MCH 31.7 pg (26.0-34.0); MCHC 33.3 g/dL (31.0-37.0); MCV 95.1 fL (80.0-100.0); MONOCYTES 2.9 % (2-11); NEUTROPHILS 71.8 % (40-80); PLATELET COUNT 322 10x3/uL (130-400); RBC 3.75 10x6/uL (4.20-6.10); RDW 15.1 % (11.5-14.5); WBC 4.4 10x3/uL (4.8-10.8)
[2020-11-24 07:36] LABS: ALBUMIN 2.7 g/dL (3.4-5.0); ALKALINE PHOSPHATASE 56 U/L (30-120); ALT (SGPT) 21 U/L (10-68); BILIRUBIN - TOTAL 0.22 mg/dL (0.2-1.3); CALCIUM 8.6 mg/dL (8.5-10.1); CARBON DIOXIDE 25.6 mmol/L (21.0-32.0); CHLORIDE - SERUM 104 mmol/L (98-107); GLUCOSE 154 mg/dL (74-106); MAGNESIUM - SERUM 1.8 mg/dL (1.8-2.4); POTASSIUM - SERUM 4.7 mmol/L (3.5-5.1); PROTEIN - SERUM 6.2 g/dL (6.4-8.2); SODIUM 139 mmol/L (136-145); eGFR NON AFRICAN AMERICAN 80 mL/min (90-120)
[2020-11-24 08:11] LABS: CALC OSMOLALITY 281 mosm/kg (275-300); UREA NITROGEN 14 mg/dL (7-18)
[2020-11-24] MEDS ORDERED: VENTOLIN HFA [SP8 GM INH (09:14)
[2020-11-24] MEDS ORDERED: MUCINEX600 MG PO (09:14)
[2020-11-24] MEDS ORDERED: DULERA 100 MCG8.8 GM INH (09:14)
[2020-11-24] MEDS ORDERED: TESSALON PERLE100 MG PO (09:14)
[2020-11-24] MEDS ORDERED: VITAMIN D325 MC1 PO (09:15)
[2020-11-24] MEDS ORDERED: DECADRON4 MG PO (09:15)
[2020-11-24] MEDS ORDERED: MELATONIN 3 MG1 TAB PO (09:15)
[2020-11-24] MEDS ORDERED: OMNICEF300 MG PO (09:16)
[2020-11-24] MEDS ORDERED: VITAMIN C PO (09:16)
--- NOTE | 2020-11-24 10:39 | MORECARE ---
CASE MANAGEMENT DISCHARGE SUMMARY PATIENT: OMAR GUTIERREZ UNIT: [id number] ADM DATE: 11/19/20 AGE: 65 : 57 SEX: M ROOM/BED: D.2138 AUTHOR: CAROLINE,DOC PHYSICIAN: REFERRING PHYSICIAN: LUIGI BULLOCK MD DATE OF SERVICE: 11/24/20 Case Management Discharge Planning Summary COMMENTS ENTERED DATE: 11/24/20 10:32 CT COMMENT TYPE: Discharge Planning REVIEWER: Thomas Sotomayor CM met with patient to complete DC plan and to evaluate needs. Patient lives alone with strong support and has identified his brother, Omari Gutierrez, as his person to notify. Patient stated that his home is safe and has electricity and running water. Patient stated that he has no problems paying for medications and he fills his medications at [facility]. Patient stated that his primary care physician is Dr. Landrum at [facility]. At discharge, the patient plans to return home and feels this is a safe discharge. CM discussed availability of home health, rehab services, and medical equipment. Patient declined HHS, SNF, IPR, and DME. Patient voiced no other needs at this time and is satisfied with DC plan. Transportation provider at discharge will be with a friend. CM will continue to follow and will assist as needed with dc plans/needs. MTP REVIEW SUMMARY ANTICIPATED D/C DATE: 11/24/2020 EXPECTED LOS : 5 CASE STATUS: DCP Initiated INITIAL REVIEW: 11/19/2020 INITIAL REVIEWER: Thomas Sotomayor FINAL DISCHARGE DISPOSITION: : FINAL REVIEWER: FINAL REVIEW DATE: MTP Focus Questions & Answers DCP Evaluation QUESTION: ANSWER Patient and/or caregiver agree upon recommended discharge plan? : Yes Family / Caregiver's ability to cope with chronic illness: : a. Adequate (ability to meet patient's medical needs, ensures patient attends medical appts.) Patient's current cognitive status: : *Oriented to person, place, situation, time and present Patient's ability to cope with chronic illness : d. No chronic illness Patient gives permission to discuss discharge plans with: (name, relationship and number) : brotherOmari, Does the patient have the ability to pay for or attain post discharge needs / services? : Yes Functional screen assessment: : Basic needs can adequately be met by self Family / Caregiver's ability to cope with chronic illness: : a. Adequate (ability to meet patient's medical needs, ensures patient attends medical appts.) Physical Status: : Independent with ADL's Equipment needed for post hospitalization: : None Is there a likelihood that the patient will require additional services to return to the preadmission environment? : No Living Arrangements: : Home Alone with Support Patient with capacity for self-care or can be cared for in same environment as prior to hospitalization? : Yes Baseline cognitive status: : *Oriented to person, place, situation, time and present Physical environment modification needed / anticipated for discharge: : No Medication Management: : Patient states can read and understand medication labels Medication Management: : Patient states can afford medications Pharmacy name(s): : [facility] Does Patient have transportation to get home and to follow-up medical appointments when discharged from the hospital? : Yes Would patient like to participate in any Care Coordination programs (if applicable): : Not applicable Does the patient have electricity at home? : Yes Does the patient have running water in their house? : Yes Equipment in use: : None Mental health screen: : No mental health history DCP Re-evaluation QUESTION: ANSWER Would patient like to participate in any Care Coordination programs (if applicable): : Not applicable PATIENT: OMAR GUTIERREZ ENCOUNTER: [id number] MEDICAL RECORD#: [id number] ADMISSION DATE: 11/19/2020 DISCHARGE DATE: ATTENDING MD: LUIGI GUPTA : AGE: 65 MARITAL STATUS: D DC PLAN ID: [id number] FACILITY: [facility] PRINTED ON: 11/24/20 10:39 CT All edits/amendments must be made on the electronic document DICTATION DATE: 11/24/20 103 CLIPPER AUTOMATIC: DM 11/24/20 103 RPT#: [id number] DC DATE: STATUS: ADM IN [facility] [address] [place] [address] END OF REPORT
--- NOTE | 2020-11-24 11:38 | NUR ---
I have reviewed this patient and I concur with the Shift Assessment completed by the Licensed Practical Nurse today this shift.
--- NOTE | 2020-11-24 11:39 | NUR ---
PATIENT READY FOR DC. DC'D OWN PIV WITH CATH TIP INTACT. DC INSTRUCTIONS PROVIDED TO PATIENT, FEEDER SWITCHBOARD OPERATOR ESCORTED PATIENT TO ER ENTRANCE VIA W/C.
--- NOTE | 2020-11-26 09:26 | EC ---
PATIENT:OMAR PETERSON DATE OF SERVICE: 11/19/20 SEX: M MEDICAL RECORD: [id number] DATE OF : [birth year] LOCATION:D.M2 D.213 AGE OF PATIENT: 65 ADMISSION DATE: 11/19/20 REFERRING PHYSICIAN: INTERPRETING PHYSICIAN: JANA NOLAN MD ECHOCARDIOGRAM REPORT ECHO CHARGES 4 ECHO COMPLETE Date: 11/20/20 CLINICAL DIAGNOSIS: CMP ECHOCARDIOGRAPHIC MEASUREMENTS (adult normal given) AC root (d.<3.7cm) 3.7 cm LV Septum d (<1.2 cm> 1.1 cm Valve Excursion 2.5 cm LV Septum (systole) 1.5 cm Left Atria (s.<4.0cm> 4.0 cm LVPW d(<1.2cm) 1.1 cm RV (d.<2.3cm) 4.8 cm LVPW (sytole) 1.4 cm LV diastole(<5.6CM) 4.2 cm MV E-F(>70mm/sec) cm LV systole 2.1 cm LVOT Diameter 2.1 cm MV exc.(>10mm) cm Est.ejection fraction (50-75%) 5 % DOPPLER: LVIT cm/sec A 73 cm/sec E 101 cm/sec LA cm/sec RVSP 32 mmHg LVOT 138 cm/sec AOP1/2T m/s Asc. Ao 173 cm/sec RVOT 68 cm/sec RA 6.0 cm/sec PA 73 cm/sec AV Gradient Peak 12 mmHg AV Mean 4 mmHg AV Area 3.1 cm MV Gradient Peak 5 mmHg MV Mean 1 mmHg MV Area cm COMMENTS: Emergency Telecommunications Dispatcher: Layne HARDY Cardiopulmonary Technologist: 3 Dr. Mueller TAPE# Pericardial Effusion N DATE OF SERVICE: Adequate 2D, color-flow imaging, spectral Doppler, and M-Mode FINDINGS: No LVH. LV internal dimension is normal. Wall motion is normal. EF is greater than or equal to 55%. Aortic valve is tricuspid. No evidence of stenosis by Doppler interrogation. Left atrium is upper limits of normal at 4.8 cm. Mitral valve shows no prolapse. Trace MR. Right side is grossly normal. Mild TR. ECHOCARDIOGRAM REPORT [id number] OMAR PETERSON TRANSINT:[id number] Voice Confirmation ID: [id number] DOCUMENT ID: [id number] JANA NOLAN MD at 0926 CC: [id number] DICTATION DATE: 11/23/20 1141 EQUITIES ANALYST: 11/23/20 1220 DIS IN 11/24/20 [id number] [place] [address]
== END 2020-11-24 11:41 | disposition home or self-care (01) | DRG 177 ==
LOC: D.ER 18:07 → D.M2 21:00
PROVIDERS: Family Medicine; Internal Medicine Hematology & Oncology; Internal Medicine Pulmonary Disease; ADMIT Family Medicine Adult Medicine; ATTEND Family Medicine Adult Medicine
DX: U07.1 COVID-19 (principal); J12.82 Pneumonia due to coronavirus disease 2019; E87.1 Hypo-osmolality and hyponatremia; I31.9 Disease of pericardium, unspecified; G40.909 Epilepsy, unspecified, not intractable, without status epilepticus; K21.9 Gastro-esophageal reflux disease without esophagitis; D70.9 Neutropenia, unspecified; N18.9 Chronic kidney disease, unspecified; D63.1 Anemia in chronic kidney disease

== ENCOUNTER 2020-11-26 15:47 | Inpatient (IN) | payer MEDICAID ==
[~2020-11-26] VITALS: Ht 190.5 cm; Wt 95.3 kg
[~2020-11-26 15:47] MED LIST changes: +DECADRON4 MG PO; +DULERA 100 MCG8.8 GM INH; +MELATONIN 3 MG1 TAB PO; +MUCINEX600 MG PO; +OMNICEF300 MG PO; +TESSALON PERLE100 MG PO; +VENTOLIN HFA [SP8 GM INH; +VITAMIN C PO; +VITAMIN D325 MC1 PO
[2020-11-26 17:03] LABS: HEMATOCRIT 36.9 % (42.0-54.0); HEMOGLOBIN 12.4 g/dL (13.5-17.5); MCH 31.9 pg (26.0-34.0); MCHC 33.6 g/dL (31.0-37.0); MCV 95.2 fL (80.0-100.0); MEAN PLATELET VOLUME 6.6 fL (7.4-10.4); RBC 3.88 10x6/uL (4.20-6.10); RDW 15.5 % (11.5-14.5); WBC 6.4 10x3/uL (4.8-10.8)
[2020-11-26 17:05] LABS: PLATELET COUNT 405 10x3/uL (130-400)
[2020-11-26 17:13] LABS: APTT 26.8 SECONDS (22.8-39.4); INR 1.08 (0.85-1.17); PROTIME 12.9 SECONDS (11.6-15.0)
[2020-11-26 17:19] LABS: CALC OSMOLALITY 290 mosm/kg (275-300); CALCIUM 9.4 mg/dL (8.5-10.1); CHLORIDE - SERUM 104 mmol/L (98-107); CREATININE - SERUM 1.2 mg/dL (0.6-1.3); GLUCOSE 147 mg/dL (74-106); POTASSIUM - SERUM 4.1 mmol/L (3.5-5.1); SODIUM 142 mmol/L (136-145); UREA NITROGEN 27 mg/dL (7-18); eGFR NON AFRICAN AMERICAN 65 mL/min (90-120)
[2020-11-26 17:35] LABS: ALBUMIN 3.4 g/dL (3.4-5.0); ALKALINE PHOSPHATASE 55 U/L (30-120); ALT (SGPT) 23 U/L (10-68); BILIRUBIN - TOTAL 0.25 mg/dL (0.2-1.3); CREATINE KINASE 61 UL (21-232); PROTEIN - SERUM 7.2 g/dL (6.4-8.2); TROPONIN-I < 0.017 ng/mL (0.000-0.060)
[2020-11-26 18:04] LABS: EOSINOPHILS 1 % (0-7); LYMPHOCYTES 18 % (15-50); MONOCYTES 3 % (2-11); NEUTROPHILS 78 % (40-80); PLATELET ESTIMATE NORMAL
[2020-11-26 18:39] LABS: BILIRUBIN NEGATIVE (NEGATIVE); KETONE NEGATIVE (NEGATIVE); NITRITE NEGATIVE (NEGATIVE); UROBILINOGEN NORMAL mg/dL (< 2)
--- NOTE | 2020-11-26 19:13 | NUR ---
PT REPORT GIVEN TO JACQUE RICE AT THIS TIME.
[2020-11-26 20:26] VITALS: BP 121/79
--- NOTE | 2020-11-26 20:36 | NUR ---
PT'S BROTHER SIMEON: [phone]. PT STATES IT'S FINE TO DISCUSS HIS HEALTHCARE WITH THIS PERSON.
[2020-11-27] VITALS: BP 111/76
[2020-11-27 02:50] VITALS: BP 110/70; BMI 26.3
[2020-11-27 04:00] VITALS: BP 113/72
[2020-11-27 06:42] LABS: BASOPHILS 0.2 % (0-2); EOSINOPHILS 0 % (0-7); HEMATOCRIT 32.7 % (42.0-54.0); HEMOGLOBIN 10.9 g/dL (13.5-17.5); LYMPHOCYTES 17.7 % (15-50); MCH 31.7 pg (26.0-34.0); MCHC 33.4 g/dL (31.0-37.0); MCV 94.7 fL (80.0-100.0); MEAN PLATELET VOLUME 6.6 fL (7.4-10.4); MONOCYTES 4.8 % (2-11); NEUTROPHILS 77.3 % (40-80); PLATELET COUNT 384 10x3/uL (130-400); RBC 3.46 10x6/uL (4.20-6.10); RDW 15.3 % (11.5-14.5); WBC 5.2 10x3/uL (4.8-10.8)
[2020-11-27 07:20] LABS: ALBUMIN 2.8 g/dL (3.4-5.0); ALKALINE PHOSPHATASE 54 U/L (30-120); ALT (SGPT) 21 U/L (10-68); BILIRUBIN - TOTAL 0.19 mg/dL (0.2-1.3); C-REACTIVE PROTEIN 0.5 mg/dL (0.0-0.9); CALC OSMOLALITY 273 mosm/kg (275-300); CALCIUM 8.6 mg/dL (8.5-10.1); CARBON DIOXIDE 24.6 mmol/L (21.0-32.0); CHLORIDE - SERUM 102 mmol/L (98-107); CREATININE - SERUM 0.9 mg/dL (0.6-1.3); FERRITIN 402 ng/mL (3-244); GLUCOSE 142 mg/dL (74-106); LDH 132 U/L (85-227); PHOSPHOROUS 2.9 mg/dL (2.5-4.9); POTASSIUM - SERUM 4.7 mmol/L (3.5-5.1); PROTEIN - SERUM 6.5 g/dL (6.4-8.2); SODIUM 134 mmol/L (136-145); UREA NITROGEN 24 mg/dL (7-18); eGFR NON AFRICAN AMERICAN 90 mL/min (90-120)
[2020-11-27 07:35] VITALS: BP 118/79
[2020-11-27 08:35] LABS: ERYTHROCYTE SEDIMENTATION RATE 27 mm/hr (0-20)
[2020-11-27 11:54] VITALS: BP 106/68
[2020-11-27 13:52] VITALS: Ht 190.5 cm; Wt 95.3 kg
--- NOTE | 2020-11-27 19:30 | NUR ---
PT AAO X 4, SETTING ON SIDE OF BED WATCHING TV, PT RESP EVEN AND UNLABORED, NO DISTRESS NOTED, CL IN REACH, SR UP X 2.
[2020-11-27 21:05] VITALS: BP 107/70
[2020-11-28] VITALS: BP 119/81
--- NOTE | 2020-11-28 03:08 | NUR ---
I have reviewed this patient and I concur with the Shift Assessment completed by the Licensed Practical Nurse today this shift.
[2020-11-28 04:44] VITALS: BP 124/654
[2020-11-28 07:57] VITALS: BP 122/79
[2020-11-28 08:02] LABS: BASOPHILS 1.9 % (0-2); EOSINOPHILS 0 % (0-7); HEMATOCRIT 33.5 % (42.0-54.0); HEMOGLOBIN 11.4 g/dL (13.5-17.5); LYMPHOCYTES 10.9 % (15-50); MCH 32.3 pg (26.0-34.0); MCHC 33.9 g/dL (31.0-37.0); MCV 95.2 fL (80.0-100.0); MEAN PLATELET VOLUME 6.6 fL (7.4-10.4); MONOCYTES 5.1 % (2-11); NEUTROPHILS 82.1 % (40-80); PLATELET COUNT 379 10x3/uL (130-400); RBC 3.52 10x6/uL (4.20-6.10); RDW 15.2 % (11.5-14.5)
--- NOTE | 2020-11-28 08:04 | NUR ---
AM MEDS GIVEN AT THIS TIME. PT AWAKE AND ALERT, SITING UP IN BED. RR EVEN NON LABORED ON ROOM AIR. PT GIVEN PRN PAIN MEDICATION FOR HEADACHE. BREAKFAST TRAY GIVEN, NO NEEDS VOICED. CLWR .
[2020-11-28 08:18] LABS: ALBUMIN 3.1 g/dL (3.4-5.0); ALKALINE PHOSPHATASE 61 U/L (30-120); ALT (SGPT) 25 U/L (10-68); BILIRUBIN - TOTAL 0.11 mg/dL (0.2-1.3); CALC OSMOLALITY 286 mosm/kg (275-300); CALCIUM 8.6 mg/dL (8.5-10.1); CARBON DIOXIDE 25.6 mmol/L (21.0-32.0); CHLORIDE - SERUM 106 mmol/L (98-107); CREATININE - SERUM 0.9 mg/dL (0.6-1.3); GLUCOSE 128 mg/dL (74-106); PHOSPHOROUS 3.1 mg/dL (2.5-4.9); POTASSIUM - SERUM 4.9 mmol/L (3.5-5.1); PROTEIN - SERUM 6.4 g/dL (6.4-8.2); SODIUM 140 mmol/L (136-145); UREA NITROGEN 29 mg/dL (7-18); eGFR NON AFRICAN AMERICAN 90 mL/min (90-120)
--- NOTE | 2020-11-28 19:30 | NUR ---
PT IN BED, AAO X 4, RESP EVEN AND UNLABORED, NO DISTRESS NOTED, CL IN REACH, SR UP X 2.
[2020-11-28 20:39] VITALS: BP 109/76
[2020-11-29 00:11] VITALS: BP 110/81
--- NOTE | 2020-11-29 04:59 | NUR ---
I have reviewed this patient and I concur with the Shift Assessment completed by the Licensed Practical Nurse today this shift.
[2020-11-29 05:26] VITALS: BP 116/64
[2020-11-29 06:04] LABS: BASOPHILS 0.1 % (0-2); EOSINOPHILS 0 % (0-7); HEMATOCRIT 31.7 % (42.0-54.0); HEMOGLOBIN 10.7 g/dL (13.5-17.5); LYMPHOCYTES 19.9 % (15-50); MCH 32.2 pg (26.0-34.0); MCHC 33.9 g/dL (31.0-37.0); MCV 95.2 fL (80.0-100.0); MEAN PLATELET VOLUME 6.7 fL (7.4-10.4); MONOCYTES 5.3 % (2-11); NEUTROPHILS 74.7 % (40-80); PLATELET COUNT 341 10x3/uL (130-400); RBC 3.33 10x6/uL (4.20-6.10); RDW 15.4 % (11.5-14.5)
[2020-11-29 06:25] LABS: ALBUMIN 2.7 g/dL (3.4-5.0); ALKALINE PHOSPHATASE 58 U/L (30-120); ALT (SGPT) 19 U/L (10-68); BILIRUBIN - TOTAL 0.13 mg/dL (0.2-1.3); CALC OSMOLALITY 277 mosm/kg (275-300); CALCIUM 8.5 mg/dL (8.5-10.1); CARBON DIOXIDE 28.6 mmol/L (21.0-32.0); CHLORIDE - SERUM 103 mmol/L (98-107); GLUCOSE 127 mg/dL (74-106); MAGNESIUM - SERUM 1.8 mg/dL (1.8-2.4); PHOSPHOROUS 2.4 mg/dL (2.5-4.9); POTASSIUM - SERUM 5.1 mmol/L (3.5-5.1); SODIUM 136 mmol/L (136-145); UREA NITROGEN 25 mg/dL (7-18); eGFR NON AFRICAN AMERICAN 80 mL/min (90-120)
--- NOTE | 2020-11-29 07:44 | NUR ---
AM MEDS GIVEN AT THIS TIME WITH PRN PAIN MEDICATION. PT RR EVEN NON LABORED, ON ROOM AIR. PT AAOX4, PLEASANT. NO FURTHER NEEDS VOICED. CLWR.
[2020-11-29 08:03] VITALS: BP 118/78
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
[2020-11-29 12:07] VITALS: BP 102/65
--- NOTE | 2020-11-29 12:13 | NUR ---
PT SITTING UP ON SIDE OF BED EATING LUNCH TRAY. PT GIVEN PRN PAIN MEDICATION PER REQUEST. PT ASKED WHEN HE WILL BE D/C TODAY , NOTIFIED PT WHEN NURSE RECEIVES ORDER SHE WILL LET HIM KNOW SO HIS RIDE HOME CAN BE IN ROUTE. PT STATES UNDERSTANDING. NO QUESTIONS VOICED. CLWR.
--- NOTE | 2020-11-29 14:10 | NUR ---
Nutrition Reassessment/Follow-up: Pt in droplet isolation; covid (+). Nursing reports that pt is eating very well; ate 2 lunch trays yesterday. Diet: Regular No new wt; last wt: 210# (11/27) Labs noted: Glu 127, POC Glu 194, PO4 2.4, Alb 2.7 Meds noted: Decadron, zinc sulfate, thiamine, vit C, vit D, NS @ 75, electrolyte protocol Nutrition Diagnosis: -Altered nutrition-related lab values R/T covid on Decadron AEB elev Glu (127, 194). Nutrition Goals: -PO intake >=75% avg of meals/snacks. -Stable dry wt. -Glu at or near normal. Nutrition Intervention: -Monitor Glu; may consider carb consistent diet. Encourage PO intake and honor food preferences within diet restrictions. -Need new wt. -RD will follow up within 5-7 days if pt still admitted.
[2020-11-29] MEDS ORDERED: NICODERM CQ1 EAC3 TRANSDERM (14:57)
[2020-11-29] MEDS ORDERED: VITAMIN C PO (14:57)
[2020-11-29] MEDS ORDERED: TESSALON PERLE100 MG PO (14:57)
[2020-11-29] MEDS ORDERED: Zinc SULFATE PO (14:57)
[2020-11-29] MEDS ORDERED: OMNICEF300 MG PO (14:58)
[2020-11-29] MEDS ORDERED: VITAMIN B-1100 M1 PO (14:58)
[2020-11-29] MEDS ORDERED: AZITHROMYCIN500 MG PO (14:59)
--- NOTE | 2020-11-29 15:01 | NUR ---
PT TO BE D/C'D HOME, SPOKE WITH PALOMO REGARDING NEURO CONSULT. PT AWARE AND HAS CALLED FOR A RIDE HOME.
--- NOTE | 2020-11-29 15:09 | NUR ---
SPOKE WITH PALOMO JOY REGARDING GIVING PAIN PILL PRIOR TO D/C. OKAY'D, AND GIVEN.
--- NOTE | 2020-11-29 15:19 | NUR ---
PT WHEELED OUTSIDE , PT STATES HIS RIDE WILL BE HERE IN JUST A MOMENT AND DENIES NEEDING ASSISTANCE. ALL BELONGINGS WITH PT TIME OF D/C. NO DISTRESS NOTED.
== END 2020-11-29 15:23 | disposition home or self-care (01) | DRG 179 ==
LOC: D.ER 15:47 → D.M2 19:17
PROVIDERS: Emergency Medicine; ADMIT Emergency Medicine; ATTEND Emergency Medicine
DX: U07.1 COVID-19 (principal); E86.0 Dehydration; D64.9 Anemia, unspecified; F17.200 Nicotine dependence, unspecified, uncomplicated; G40.909 Epilepsy, unspecified, not intractable, without status epilepticus; R51.9 Headache, unspecified; G93.89 Other specified disorders of brain